=== PATIENT | female | born 1930 | race Caucasian/White ===

== ENCOUNTER → 2018-01-02 | Outpatient (CLI) | payer MEDICARE | END | disposition home or self-care (01) | LOC: ECHO 09:14 | DX: I11.9 Hypertensive heart disease without heart failure (principal); I25.10 Atherosclerotic heart disease of native coronary artery without angina pectoris | CPT/HCPCS: 93306 ==

== ENCOUNTER → 2018-08-18 | Outpatient (CLI) | payer MEDICARE ==
[2016-03-26 11:00] VITALS: BP 155/66
[~2018-08-18] MED LIST: CALC-169 PO; CLOP75TA PO; FISH OIL OMEGA1 EACH PO; FLAX100017 PO; FURO-68 PO; GARL10002 PO; LATA2.5D3 OP; LEVO112T4 PO; MAGN400C PO; MULT-658 PO; POTA20TA82 PO; VERA120T5 PO
--- NOTE | 2018-08-18 16:58 | KCIC ---
RIBS LEFT History: Lateral left rib pain radiating anteriorly, generalized, for one month. No trauma.. Comparison: None are available 3 views are obtained of the left ribs.No evidence of a displaced fracture of the left ribs. The partially visualized spine demonstrates a right convexity curvature. Visualized lungs are clear. IMPRESSION: No evidence of displaced rib fracture. Electronically signed by: Navdeep Quinonez MD (08/18/2018 4:54 PM) [id number]
== END | disposition home or self-care (01) ==
LOC: KCIC 14:35
PROVIDERS: ATTEND Family Medicine
DX: R07.81 Pleurodynia (principal); R07.89 Other chest pain; I11.9 Hypertensive heart disease without heart failure; E78.5 Hyperlipidemia, unspecified; I25.10 Atherosclerotic heart disease of native coronary artery without angina pectoris; Z86.73 Personal history of transient ischemic attack (TIA), and cerebral infarction without residual deficits; Z90.710 Acquired absence of both cervix and uterus; Z88.0 Allergy status to penicillin
CPT/HCPCS: 71100

== ENCOUNTER → 2018-12-23 | Outpatient (CLI) | payer MEDICARE ==
[2016-03-26 11:00] VITALS: BP 155/66
--- NOTE | 2018-12-23 15:07 | RAD ---
Bilateral carotid Doppler ultrasound 12/23/2017 Clinical indication: Intraretinal vascular abnormality, carotid disease. Comparison: None Findings: Multiple grayscale, color, and duplex spectral analysis waveform sonographic images were acquired of the carotid, subclavian, and vertebral arteries. Velocities used to determine stenosis are known to correlate with NASCET angiographic criteria. RIGHT: Mid common carotid artery PSV: 76 cm/sec Distal internal carotid artery PSV: 97 cm/sec Distal internal carotid artery EDV: 19 cm/sec External carotid artery PSV: 97 cm/sec ICA/CCA ratio: 1.27 LEFT: Mid common carotid artery PSV: 112 cm/sec Mid internal carotid artery PSV: 115 cm/sec Mid internal carotid artery EDV: 27 cm/sec External carotid artery PSV: 97 cm/sec ICA/CCA ratio: 1.02 There is intimal thickening throughout the right common carotid artery without high-grade visualized narrowing. There is mild soft plaque at the origin of the right external carotid artery. The visualized portions of the right vertebral artery are patent with normal directional flow. There is minimal intimal thickening of the left common carotid artery without high-grade visualized narrowing. There is focal soft plaque at the left carotid bifurcation resulting in less than 50 percent narrowing. The visualized portions of the left vertebral artery are patent with normal directional flow. There is antegrade flow in the bilateral vertebral arteries. Impression: No visual or spectral analysis evidence of hemodynamically significant internal carotid stenosis. Electronically signed by: Niels Perez MD (12/23/2018 3:03 PM) [facility]
== END | disposition home or self-care (01) ==
LOC: US 14:17
PROVIDERS: ATTEND Family Medicine
DX: H35.09 Other intraretinal microvascular abnormalities (principal); I65.23 Occlusion and stenosis of bilateral carotid arteries
CPT/HCPCS: 93880

== ENCOUNTER → 2019-07-05 | Outpatient (CLI) | payer MEDICARE ==
[2016-03-26 11:00] VITALS: BP 155/66
--- NOTE | 2019-07-05 16:39 | KCIC ---
ANKLE BRACHIAL INDEX STUDY: Clinical indications: Atherosclerosis. Ankle/brachial indices were performed on both sides. Right side: Arm: Not obtained due to right mastectomy. Ankle: The systolic blood pressure is 151 mmHg using posterior tibial artery. Therefore, the ankle brachial index on the right side using the left brachial pressure is 1.04. Left side: Arm: The systolic blood pressure is 147 mmHg Ankle: The systolic blood pressure is 154 mmHg using posterior tibial artery . Therefore, the ankle brachial index on the left side is 1.07. Impression: Normal bilateral HILDA. Electronically signed by: Sohail Diego MD (07/05/2019 4:36 PM) [place] [id number]
== END | disposition home or self-care (01) ==
LOC: KCIC US 13:09
PROVIDERS: ATTEND Family Medicine
DX: I70.8 Atherosclerosis of other arteries (principal); Z90.11 Acquired absence of right breast and nipple
CPT/HCPCS: 93922

== ENCOUNTER → 2019-07-16 | Outpatient (CLI) | payer MEDICARE ==
[2016-03-26 11:00] VITALS: BP 155/66
--- NOTE | 2019-07-16 16:26 | KCIC ---
Indication: Left sciatica. TECHNIQUE: Multiple views of the lumbar spine and left hip joint COMPARISON: None FINDINGS: Mild left hip joint osteoarthritis. No acute fracture or dislocation. There is moderate levoscoliosis of the lumbar spine. SI joints within normal limits. No compression deformity. Multilevel intervertebral disc space narrowing seen with endplate sclerosis and small sliver formation. Multilevel facet arthropathy. 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 Electronically signed by: James Mckeon DO (07/16/2019 4:23 PM) [facility]
== END | disposition home or self-care (01) ==
LOC: KCIC 15:05
PROVIDERS: ATTEND Family Medicine
DX: M51.36 Other intervertebral disc degeneration, lumbar region (principal); M48.061 Spinal stenosis, lumbar region without neurogenic claudication; M41.86 Other forms of scoliosis, lumbar region; M12.88 Other specific arthropathies, not elsewhere classified, other specified site; M16.12 Unilateral primary osteoarthritis, left hip; M70.62 Trochanteric bursitis, left hip
CPT/HCPCS: 72110; 73502

== ENCOUNTER 2020-01-04 18:46 | Inpatient (IN) | payer MEDICARE ==
[~2020-01-04] VITALS: Ht 165.1 cm; Wt 75.9 kg
[~2020-01-04 18:46] MED LIST changes: +POTA20TA4 PO; -POTA20TA82 PO; +VERA120T12 PO; -VERA120T5 PO
[2020-01-04] MEDS ORDERED: IV NORMAL SALINE 1000ML BAG 1,000 ML IV ONE ×3 (19:30→23:00)
[2020-01-04 19:37] LABS: BASO % 0 % (0-3); EOS % 0 % (0-3); HEMATOCRIT 41.3 % (36.0-47.0); HEMOGLOBIN 13.8 g/dL (12.0-15.5); LYMPH # 0.2 x10^3/uL (1.0-4.8); LYMPH % 1 % (24-48); MEAN CORPUSCULAR HEMOGLOBIN 32 pg (25-35); MEAN CORPUSCULAR HGB CONC 33 g/dL (31-37); MEAN CORPUSCULAR VOLUME 97 fL (79-100); MONO # 0.6 x10^3/uL (0.0-1.1); MONO % 3 % (0-9); NEUT # 21.6 x10^3/uL (1.8-7.7); NEUT % 97 % (31-73); PLATELET COUNT 159 x10^3/uL (140-400); RED BLOOD COUNT 4.26 x10^6/uL (3.50-5.40); RED CELL DISTRIBUTION WIDTH 13.4 % (11.5-14.5); WHITE BLOOD COUNT 22.4 x10^3/uL (4.0-11.0)
[2020-01-04 19:38] LABS: BILIRUBIN,URINE NEGATIVE (NEG); CLARITY,URINE CLEAR; COLOR,URINE YELLOW; NITRITE,URINE POSITIVE (NEG); PROTEIN,URINE 100 mg/dL (NEG-TRACE); UROBILINOGEN,URINE 0.2 mg/dL (0.2 mg/dL)
[2020-01-04 19:49] LABS: BACTERIA,URINE MANY /HPF (0-FEW); GRANULAR CASTS,URINE FEW /HPF; HYALINE CASTS, URINE FEW /HPF; RBC,URINE TNTC /HPF (0-2); SQUAMOUS EPITHELIAL CELL,UR OCC /LPF; WBC,URINE >40 /HPF (0-4)
--- NOTE | 2020-01-04 19:58 | RAD ---
Right elbow 3 views, right humerus 2 views, right forearm 2 views. HISTORY: Trauma altered mental status Right forearm 2 views were taken of the right forearm. There is soft tissue swelling of the right arm. There is arthritis at the wrist. There is been resection of the trapezium. There is no acute fracture at the forearm. Right elbow 3 views were taken of the right elbow. There is soft tissue swelling. There is not evidence of an acute fracture. Unfortunately the lateral views are obliquely positioned limiting evaluation. I cannot evaluate the fat pads. There is no definite elbow fracture. Right humerus 2 views were taken of the right humerus. There is not evidence of an acute fracture. There is no dislocation at the shoulder. IMPRESSION: 1. Soft tissue swelling right arm. 2. Arthritis right wrist. 3. No fracture in the right forearm. 4. No fracture of the right humerus. 5. Some limitations at the elbow as the lateral views are obliquely positioned but no definite fracture. Electronically signed by: Omi Blanco MD (01/04/2020 7:55 PM) [id number]
--- NOTE | 2020-01-04 19:59 | RAD ---
AP chest. HISTORY: Short of air AP view was taken of the chest. Lungs are clear. There is no pneumothorax or pleural effusion. There are no infiltrates. Heart is normal in size. IMPRESSION: 1. No acute chest disease. Electronically signed by: Omi Blanco MD (01/04/2020 7:57 PM) [email or web address]
--- NOTE | 2020-01-04 20:12 | RAD ---
CT brain without contrast. HISTORY: Altered mental status, trauma CT scan of brain was done without contrast. There is mucosal thickening in the maxillary, ethmoid and sphenoid sinuses consistent with an acute sinusitis. There is no skull fracture. Patient had previous mastoid surgery on the left. There is no abnormal fluid in the mastoid air cells. There is no intracranial hemorrhage or subdural hematoma. Ventricles are normal in size. There is no mass or shift of the midline. An acute CVA is not identified. IMPRESSION: 1. Sinusitis. 2. No intracranial hemorrhage or acute finding noted intracranially. PQRS Compliance Statement: One or more of the following individualized dose reduction techniques were utilized for this examination: 1. Automated exposure control 2. Adjustment of the mA and/or kV according to patient size 3. Use of iterative reconstruction technique Electronically signed by: Omi Blanco MD (01/04/2020 8:09 PM) [email or web address]
[2020-01-04 20:28] LABS: % BANDS 24 % (0-9); % MONOS 2 % (0-10); % SEGS 74 % (35-66); PLT ESTIMATE ADEQUATE (ADEQUATE); TOXIC GRANULATION SLIGHT; TOXIC VACUOLATION SLIGHT
[2020-01-04] MEDS ORDERED: VANCOMYCIN 1.5 GM in IV NORMAL SALINE 500ML BAG 500 ML IV ONE (20:45)
--- NOTE | 2020-01-04 20:57 | RAD ---
Exam: Right upper extremity venous duplex study INDICATION: Right arm swelling TECHNIQUE: Using a combination of real-time ultrasound imaging and color-flow and pulse Doppler imaging techniques along with graded compression and augmentation, duplex evaluation of the deep venous systems of right upper extremity was performed. Multiple images were obtained. Findings: There is no sonographic evidence for deep venous thrombosis involving the visualized deep venous structures of the right upper extremity. IMPRESSION: No acute DVT in the right upper extremity Electronically signed by: Ayo Fish MD (01/04/2020 8:54 PM) [id number]
[2020-01-04 22:20] LABS: CALCIUM 9.3 mg/dL (8.5-10.1); CREATININE 1.3 mg/dL (0.6-1.0); GFR 38.7; POTASSIUM 3.4 mmol/L (3.5-5.1)
[2020-01-04 22:34] LABS: ALBUMIN 2.7 g/dL (3.4-5.0); ALBUMIN/GLOBULIN RATIO 0.7 (1.0-1.7); MAGNESIUM 2.2 mg/dL (1.8-2.4); TOTAL PROTEIN 6.6 g/dL (6.4-8.2)
[2020-01-04 23:57] LABS: PROTHROMBIN TIME PATIENT 14.8 SEC (11.7-14.0)
[2020-01-05] VITALS (17 sets, daily range): BP systolic 99–160; BP diastolic 45–76
--- NOTE | 2020-01-05 00:48 | PDOC2 ---
CONSULT Date of Consult Date of Consult DATE: 01/05/20 TIME: 00:36 Reason for Consult Reason for Consult: right forearm swelling, low grade fever Identification/Chief Complaint Chief Complaint Right forearm swelling Source Source: Chart review History of Present Illness Reason for Visit: 89 year old with forearm injury, swelling, low grade fever, elevated WBC count Patient is a 89 year old female with history of breast cancer who presents with altered mental status, fever 100.2 and arm pain and swelling. She lives by herself. Reportedly the patient fell 2 days ago at home injuring right arm over her right forearm. Patient reported to family members 01/04 that her right arm began to hurt. This afternoon, the family members became concerned the patient was confused swelling redness right upper extremity extending from wrist to elbow and arm. EMS was contacted. Patient is normally alert and oriented 3 but is alert and oriented to person only with confused speech on ED arrival. Reports diffuse right arm pain, tenderness and swelling. Denies hitting her head, neck pain or jury complaint. No gross injury evidence of head, neck, torso or lower extremity trauma. Right arm feels warm with erythema and swelling done from wrist to elbow, some swelling and erythema in upper arm. There is an abrasion or other area of slight drainage on the posterolateral upper arm. Extensive and diffuse swelling but no other deformity. Arm is diffusely tender with pain on range of motion. Shoulder, elbow and wrist joints do not to be especially swollen or hot. Distal pulses are intact. Sensation and motor function are intact. Patient does have history of lymphedema of right arm due to breast lumpectomy surgery. Patient is less confused today than yesterday per family. Overnight she was on a sepsis protocol, with IV fluids, and repletion of her low potassium. I spoke to the ICU nurse overnight, about her vital signs and overall condition. She did not seem to have any severe decline overnight, otherwise I would have considered emergent surgery in the middle of the night. 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 No Lives: Alone Current Medications Current Medications Current Medications Sodium Chloride 1,000 ml @ 1,000 mls/hr 1X ONCE IV Last administered on 01/04/20at 20:58; Start 01/04/20 at 19:30; Stop 01/04/20 at 20:29; Status DC Vancomycin HCl (Vanco Per Pharmacy) 1 each PRN DAILY PRN MC SEE COMMENTS; Start 01/04/20 at 20:45; Status UNV Vancomycin HCl 1.5 gm/Sodium Chloride 500 ml @ 250 mls/hr 1X ONCE IV Last administered on 01/04/20at 20:58; Start 01/04/20 at 20:45; Stop 01/04/20 at 22:44; Status DC Sodium Chloride 1,000 ml @ 1,000 mls/hr 1X ONCE IV Last administered on 01/03/20at 23:00; Start 01/04/20 at 21:30; Stop 01/04/20 at 22:29; Status DC Levofloxacin/ Dextrose 100 ml @ 100 mls/hr 1X ONCE IV Last administered on 01/05/20at 00:05; Start 01/04/20 at 23:00; Stop 01/04/20 at 23:59; Status DC Sodium Chloride 1,000 ml @ 1,000 mls/hr 1X ONCE IV ; Start 01/04/20 at 23:00; Stop 01/04/20 at 23:59; Status DC Meropenem 1 gm/ Sodium Chloride 100 ml @ 200 mls/hr Q8HRS IV ; Start 01/05/20 at 06:00; Status UNV Metronidazole 100 ml @ 100 mls/hr 1X ONCE IV Last administered on 01/05/20at 00:02; Start 01/04/20 at 23:45; Stop 01/05/20 at 00:44 Active Scripts Active Reported Garlic 1,000 Mg Capsule 1,000 Mg PO DAILY08 Flax Seed Oil (Flaxseed Oil) 1,000 Mg Capsule 1,000 Mg PO TID Fish Oil [place]-3 Softgel ([place]-3/Dha/Epa/Fish Oil) 1 Each Capsule.dr 1 Each PO BIDAC Centrum Silver Tablet (Multivits-Min/Fa/Lycopene/Lut) 1 Each Tablet 1 Each PO DAILY08 Calcium Citrate - Vit D3 Tab (Calcium Citrate/Vitamin D3) 1 Each Tablet 1 Each PO DAILY08 Magnesium (Magnesium Oxide) 400 Mg Capsule 400 Mg PO DAILY08 Latanoprost 2.5 Ml Drops 1 Drop OP HS Clopidogrel (Clopidogrel Bisulfate) 75 Mg Tablet 75 Mg PO DAILY08 Potassium Chloride 20 Meq Tablet.er 20 Meq PO TIDWMEALS Verapamil Hcl 120 Mg Tablet 240 Mg PO TIDWMEALS Levothyroxine Sodium 112 Mcg Tablet 112 Mcg PO DAILYAC Allergies Allergies: Coded Allergies: Penicillins (Verified Allergy, Intermediate, 08/02/15) etodolac (Verified Allergy, Intermediate, 08/02/15) hydrocodone (Verified Allergy, Intermediate, 08/02/15) meperidine (Verified Allergy, Intermediate, 08/02/15) morphine (Verified Allergy, Intermediate, 08/02/15) oxycodone (Verified Allergy, Intermediate, 08/02/15) pentazocine (Verified Allergy, Intermediate, 08/02/15) ROS General: YES: Fatigue, Malaise, Appetite (didn't eat or take her usual meds on 01/04) PSYCHOLOGICAL ROS: YES: Disorientation HEENT: YES: Hearing change (hearing aids, but no recent change) Hematological and Lymphatic: YES: Brusing Respiratory: No: Shortness of breath Cardiovascular: No Chest Pain Musculoskeletal: Yes Muscle Pain, Yes Swelling In: (right forearm and elbow) Neurological: Yes Confusion, Yes Memory Loss Physical Exam General: Alert, Cooperative, No acute distress HEENT: Atraumatic, Other (mouth dry, caused slight difficulty with speech, but lucid and conversive otherwise) Lungs: Normal air movement Heart: Other (regular rhythm, mild tachycardia) Abdomen: Soft Extremities: Other (the right forearm has the maximum amount of swelling along the medial elbow, basically over the ulnar nerve and volar forearm. There is 0 femur distally on the forearm almost to the hand, and proximally almost to the shoulder. The skin in these areas is softer and does not have the fullness or tense areas to palpation that are present at the medial forearm and elbow. On examination I don't believe there is a obvious olecranon bursitis but her different examination was difficult due to pain and guarding. The distal neurovascular function appears unremarkable with good capillary refill, sensa tion and slight limitation of range of motion due to pain but no focal neurologic deficit. There is a small area of serous drainage on the upper arm, which might be an abrasion or perhaps a slight amount of skin breakdown from the swelling. There is diffuse severe tenderness.) Skin: Other (slight serous drainage from upper arm 1 cm superficial lesion) Neuro: Normal speech, Sensation intact Psych/Mental Status: Mood NL MUSCULOSKELETAL: Abnormal exam of right (forearm as above. There is also edema of the forearm consistent with her history of breast cancer and lymphedema.) Vitals VITALS Vital Signs Date Time Temp Pulse Resp B/P (MAP) Pulse Ox O2 Delivery O2 Flow Rate FiO2 01/04/20 19:01 100.2 111 22 157/68 (97) 99 Room Air 100.2 Labs Labs Laboratory Tests Test 01/04/20 19:20 01/04/20 19:30 01/04/20 21:55 White Blood Count 22.4 x10^3/uL (4.0-11.0) Red Blood Count 4.26 x10^6/uL (3.50-5.40) Hemoglobin 13.8 g/dL (12.0-15.5) Hematocrit 41.3 % (36.0-47.0) Mean Corpuscular Volume 97 fL (79-100) Mean Corpuscular Hemoglobin 32 pg (25-35) Mean Corpuscular Hemoglobin Concent 33 g/dL (31-37) Red Cell Distribution Width 13.4 % (11.5-14.5) Platelet Count 159 x10^3/uL (140-400) Neutrophils (%) (Auto) 97 % (31-73) Lymphocytes (%) (Auto) 1 % (24-48) Monocytes (%) (Auto) 3 % (0-9) Eosinophils (%) (Auto) 0 % (0-3) Basophils (%) (Auto) 0 % (0-3) Neutrophils # (Auto) 21.6 x10^3/uL (1.8-7.7) Lymphocytes # (Auto) 0.2 x10^3/uL (1.0-4.8) Monocytes # (Auto) 0.6 x10^3/uL (0.0-1.1) Eosinophils # (Auto) 0.0 x10^3/uL (0.0-0.7) Basophils # (Auto) 0.0 x10^3/uL (0.0-0.2) Segmented Neutrophils % 74 % (35-66) Band Neutrophils % 24 % (0-9) Monocytes % 2 % (0-10) Toxic Granulation Slight Toxic Vacuolation Slight Platelet Estimate Adequate (ADEQUATE) Urine Collection Type U cath Urine Color Yellow Urine Clarity Clear Urine pH 6.0 Urine Specific [place] 1.020 Urine Protein 100 mg/dL (NEG-TRACE) Urine Glucose (UA) Negative mg/dL (NEG) Urine Ketones (Stick) 15 mg/dL (NEG) Urine Blood Large (NEG) Urine Nitrite Positive (NEG) Urine Bilirubin Negative (NEG) Urine Urobilinogen Dipstick 0.2 mg/dL (0.2 mg/dL) Urine Leukocyte Esterase Negative (NEG) Urine RBC Tntc /HPF (0-2) Urine WBC >40 /HPF (0-4) Urine Squamous Epithelial Cells Occ /LPF Urine Bacteria Many /HPF (0-FEW) Urine Hyaline Casts Few /HPF Urine Granular Casts Few /HPF Urine Mucus Slight /LPF Sodium Level 135 mmol/L (136-145) Potassium Level 3.4 mmol/L (3.5-5.1) Chloride Level 100 mmol/L (98-107) Carbon Dioxide Level 24 mmol/L (21-32) Anion Gap 11 (6-14) Blood Urea Nitrogen 40 mg/dL (7-20) Creatinine 1.3 mg/dL (0.6-1.0) Estimated GFR (Cockcroft-Gault) 38.7 BUN/Creatinine Ratio 31 (6-20) Glucose Level 105 mg/dL (70-99) Lactic Acid Level 1.4 mmol/L (0.4-2.0) Calcium Level 9.3 mg/dL (8.5-10.1) Magnesium Level 2.2 mg/dL (1.8-2.4) Total Bilirubin 1.0 mg/dL (0.2-1.0) Aspartate Amino Transf (AST/SGOT) 25 U/L (15-37) Alanine Aminotransferase (ALT/SGPT) 20 U/L (14-59) Alkaline Phosphatase 55 U/L (46-116) Creatine Kinase 395 U/L (26-192) Troponin I Quantitative < 0.017 ng/mL (0.000-0.055) Total Protein 6.6 g/dL (6.4-8.2) Albumin 2.7 g/dL (3.4-5.0) Albumin/Globulin Ratio 0.7 (1.0-1.7) Laboratory Tests Test 01/04/20 19:20 01/04/20 19:30 01/04/20 21:55 White Blood Count 22.4 x10^3/uL (4.0-11.0) Red Blood Count 4.26 x10^6/uL (3.50-5.40) Hemoglobin 13.8 g/dL (12.0-15.5) Hematocrit 41.3 % (36.0-47.0) Mean Corpuscular Volume 97 fL (79-100) Mean Corpuscular Hemoglobin 32 pg (25-35) Mean Corpuscular Hemoglobin Concent 33 g/dL (31-37) Red Cell Distribution Width 13.4 % (11.5-14.5) Platelet Count 159 x10^3/uL (140-400) Neutrophils (%) (Auto) 97 % (31-73) Lymphocytes (%) (Auto) 1 % (24-48) Monocytes (%) (Auto) 3 % (0-9) Eosinophils (%) (Auto) 0 % (0-3) Basophils (%) (Auto) 0 % (0-3) Neutrophils # (Auto) 21.6 x10^3/uL (1.8-7.7) Lymphocytes # (Auto) 0.2 x10^3/uL (1.0-4.8) Monocytes # (Auto) 0.6 x10^3/uL (0.0-1.1) Eosinophils # (Auto) 0.0 x10^3/uL (0.0-0.7) Basophils # (Auto) 0.0 x10^3/uL (0.0-0.2) Segmented Neutrophils % 74 % (35-66) Band Neutrophils % 24 % (0-9) Monocytes % 2 % (0-10) Toxic Granulation Slight Toxic Vacuolation Slight Platelet Estimate Adequate (ADEQUATE) Urine Collection Type U cath Urine Color Yellow Urine Clarity Clear Urine pH 6.0 Urine Specific [place] 1.020 Urine Protein 100 mg/dL (NEG-TRACE) Urine Glucose (UA) Negative mg/dL (NEG) Urine Ketones (Stick) 15 mg/dL (NEG) Urine Blood Large (NEG) Urine Nitrite Positive (NEG) Urine Bilirubin Negative (NEG) Urine Urobilinogen Dipstick 0.2 mg/dL (0.2 mg/dL) Urine Leukocyte Esterase Negative (NEG) Urine RBC Tntc /HPF (0-2) Urine WBC >40 /HPF (0-4) Urine Squamous Epithelial Cells Occ /LPF Urine Bacteria Many /HPF (0-FEW) Urine Hyaline Casts Few /HPF Urine Granular Casts Few /HPF Urine Mucus Slight /LPF Sodium Level 135 mmol/L (136-145) Potassium Level 3.4 mmol/L (3.5-5.1) Chloride Level 100 mmol/L (98-107) Carbon Dioxide Level 24 mmol/L (21-32) Anion Gap 11 (6-14) Blood Urea Nitrogen 40 mg/dL (7-20) Creatinine 1.3 mg/dL (0.6-1.0) Estimated GFR (Cockcroft-Gault) 38.7 BUN/Creatinine Ratio 31 (6-20) Glucose Level 105 mg/dL (70-99) Lactic Acid Level 1.4 mmol/L (0.4-2.0) Calcium Level 9.3 mg/dL (8.5-10.1) Magnesium Level 2.2 mg/dL (1.8-2.4) Total Bilirubin 1.0 mg/dL (0.2-1.0) Aspartate Amino Transf (AST/SGOT) 25 U/L (15-37) Alanine Aminotransferase (ALT/SGPT) 20 U/L (14-59) Alkaline Phosphatase 55 U/L (46-116) Creatine Kinase 395 U/L (26-192) Troponin I Quantitative < 0.017 ng/mL (0.000-0.055) Total Protein 6.6 g/dL (6.4-8.2) Albumin 2.7 g/dL (3.4-5.0) Albumin/Globulin Ratio 0.7 (1.0-1.7) Images Images Reports reviewed, images independently reviewed. Some reticulation consistent with swelling, no soft tissue gas, no fracture. [facility] [address] [place], [place] [id number] IMAGING REPORT Signed PATIENT: BECKIE HUFF ACCOUNT: [id number] : 1930 LOCATION: ER AGE: 89 SEX: F EXAM STATUS: REG ER ORD. PHYSICIAN: LUCA CONTRERAS DO REASON: trauma PROCEDURE: FOREARM RIGHT Right elbow 3 views, right humerus 2 views, right forearm 2 views. HISTORY: Trauma altered mental status Right forearm 2 views were taken of the right forearm. There is soft tissue swelling of the right arm. There is arthritis at the wrist. There is been resection of the trapezium. There is no acute fracture at the forearm. Right elbow 3 views were taken of the right elbow. There is soft tissue swelling. There is not evidence of an acute fracture. Unfortunately the lateral views are obliquely positioned limiting evaluation. I cannot evaluate the fat pads. There is no definite elbow fracture. Right humerus 2 views were taken of the right humerus. There is not evidence of an acute fracture. There is no dislocation at the shoulder. IMPRESSION: 1. Soft tissue swelling right arm. 2. Arthritis right wrist. 3. No fracture in the right forearm. 4. No fracture of the right humerus. 5. Some limitations at the elbow as the lateral views are obliquely positioned but no definite fracture. Electronically signed by: Omi Blanco MD (01/04/2020 7:55 PM) [id number] DICTATED and SIGNED BY: OMI BLANCO MD DATE: 01/04/201954 Assessment/Plan Assessment/Plan I will plan for (possible) I&D R forearm in a few hours. Patient currently hemodynamically stable but hyponatremic, hypokalemic, and elevated BUN/Cr ratio consistent with severe dehydration. Would recommend IV hydration and replace electrolytes to make potential surgery safer. Her lactic acid is normal, so this might be cellulitis, not fasciitis. Would reconsider for emergent surgery sooner if BP becomes labile or other deterioration. Discussed with nursing coding clerks supervisor. Notify me for signs of hypotension overnight. I examined the patient at 7:30 AM, and she has tense fullness on the medial forearm, consistent with an abscess. She did not deteriorate overnight, and her blood pressure remained stable. She received potassium and IV fluids. She is lucid now, but diagnosis of sepsis and forearm abscess is appropriate. I doubt necrotizing fasciitis based on her clinical course, but surgical exploration and I&D of the arm is indicated and will help determine the appropriate diagnosis. If necrotizing fasciitis is present she would require fasciotomy, a more extensive procedure than incision and drainage. I spoke to the patient and her daughter about the risks benefits and alternatives of proceeding with surgery. They agree for incision and drainage and possible fasciotomy of the right arm. BRIDGER DE LA CRUZ MD Jan 05, 2020 00:48
[2020-01-05 01:03] LABS: ALBUMIN 2.5 g/dL (3.4-5.0); ALBUMIN/GLOBULIN RATIO 0.7 (1.0-1.7); CALCIUM 8.6 mg/dL (8.5-10.1); CREATININE 1.2 mg/dL (0.6-1.0); GFR 42.4; TOTAL PROTEIN 6.1 g/dL (6.4-8.2)
[2020-01-05 01:08] LABS: POTASSIUM 2.8 mmol/L (3.5-5.1)
[2020-01-05] MEDS ORDERED: ONDANSETRON PF 4 MG/2 ML VIAL. IV PRN ×2 (01:15→06:45)
[2020-01-05] MEDS ORDERED: MORPHINE SULFATE 2 MG/ML VIAL. IV PRN (01:15)
[2020-01-05] MEDS ORDERED: POTASSIUM CHLORIDE 20 MEQ TABLET.ER. PO ONE ×2 (01:30→15:15)
--- NOTE | 2020-01-05 01:39 | PHYS DOC ---
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 She lives by herself. Reportedly the patient fell 2 days ago at home injuring right arm over her medial bicep. Patient reported to family members S today that her right arm began to hurt. This afternoon, the family members became concerned the patient was confused swelling redness right upper extremity extending from wrist to proximal bicep. EMS was contacted. Patient is normally alert and oriented 3 but is alert and oriented to person only with confused speech on ED arrival. Reports diffuse right arm pain, tenderness and swelling. Denies hitting her head, neck pain or jury complaint. No gross injury evidence of head, neck, torso or lower extremity trauma. Right arm feels warm with erythema and swelling done from wrist to proximal bicep.. There is no soft tissue given breakdown appreciated. There is a contusion over the right bicep consistent with reported injury. No deformity appreciated. Arm is diffusely tender with pain on range of motion. Shoulder, elbow and wrist joints do not to be especially swollen or hot. Distal pulses are intact. Sensation and motor function are intact. Patient does have history of lymphedema of right arm. Patient is confused, additional information is obtained from family members who confirm [ ] Review of Systems Review of Systems ROS as per HPI All other systems were reviewed and found to be within normal limits, except as documented in this note. Current Medications Current Medications Current Medications Medications (Trade) Dose Ordered Sig/Jason Start Time Stop Time Status Last Admin Dose Admin Sodium Chloride 1,000 ml @ 1,000 mls/hr 1X ONCE 01/04/20 19:30 01/04/20 20:29 DC 01/04/20 20:58 1,000 MLS/HR Allergies Allergies Allergies Coded Allergies Type Severity Reaction Last Updated Verified Penicillins Allergy Intermediate 08/02/15 Yes etodolac Allergy Intermediate 08/02/15 Yes hydrocodone Allergy Intermediate 08/02/15 Yes meperidine Allergy Intermediate 08/02/15 Yes morphine Allergy Intermediate 08/02/15 Yes oxycodone Allergy Intermediate 08/02/15 Yes pentazocine Allergy Intermediate 08/02/15 Yes Physical Exam Physical Exam Constitutional:. Anxious, pleasantly confused. [] HENT: Normocephalic, atraumatic, bilateral external ears normal, oropharynx moist, nose normal. [] Eyes: PERRL, EOMI, conjunctiva normal. [] Neck: Normal range of motion, no midline tenderness. [] Cardiovascular: Tachycardic, regular rhtyhtm[] Lungs & Thorax: Bilateral breath sounds clear to auscultation [] Abdomen: Bowel sounds normal, soft. [] Skin: Warm, dry, no erythema, no rash. [] Back: No tenderness. [] Extremities: RUE: Right arm feels warm with erythema and swelling done from wr ist to proximal bicep.. There is no soft tissue given breakdown or soft tissue crepitus appreciated. There is a contusion over the right bicep consistent with reported injury. No deformity appreciated. Arm is diffusely tender with pain on range of motion. Shoulder, elbow and wrist joints do not to be especially swollen or hot. Distal pulses are intact. Sensation and motor function are intact. [] Neurologic: Alert and oriented X 1, normal motor function, normal sensory funct ion, no focal deficits noted. [] Psychologic: Affect normal, judgement normal, mood normal. [] Current Patient Data Vital Signs Vital Signs Date Time Temp Pulse Resp B/P (MAP) Pulse Ox O2 Delivery O2 Flow Rate FiO2 01/04/20 19:01 100.2 111 22 157/68 (97) 99 Room Air 100.2 Lab Values Laboratory Tests Test 01/04/20 19:20 01/04/20 19:30 White Blood Count 22.4 x10^3/uL (4.0-11.0) H Red Blood Count 4.26 x10^6/uL (3.50-5.40) Hemoglobin 13.8 g/dL (12.0-15.5) Hematocrit 41.3 % (36.0-47.0) Mean Corpuscular Volume 97 fL (79-100) Mean Corpuscular Hemoglobin 32 pg (25-35) Mean Corpuscular Hemoglobin Concent 33 g/dL (31-37) Red Cell Distribution Width 13.4 % (11.5-14.5) Platelet Count 159 x10^3/uL (140-400) Neutrophils (%) (Auto) 97 % (31-73) H Lymphocytes (%) (Auto) 1 % (24-48) L Monocytes (%) (Auto) 3 % (0-9) Eosinophils (%) (Auto) 0 % (0-3) Basophils (%) (Auto) 0 % (0-3) Neutrophils # (Auto) 21.6 x10^3/uL (1.8-7.7) H Lymphocytes # (Auto) 0.2 x10^3/uL (1.0-4.8) L Monocytes # (Auto) 0.6 x10^3/uL (0.0-1.1) Eosinophils # (Auto) 0.0 x10^3/uL (0.0-0.7) Basophils # (Auto) 0.0 x10^3/uL (0.0-0.2) Segmented Neutrophils % 74 % (35-66) H Band Neutrophils % 24 % (0-9) H Monocytes % 2 % (0-10) Toxic Granulation Slight Toxic Vacuolation Slight Platelet Estimate Adequate (ADEQUATE) Urine Collection Type U cath Urine Color Yellow Urine Clarity Clear Urine pH 6.0 Urine Specific [place] 1.020 Urine Protein 100 mg/dL (NEG-TRACE) Urine Glucose (UA) Negative mg/dL (NEG) Urine Ketones (Stick) 15 mg/dL (NEG) Urine Blood Large (NEG) Urine Nitrite Positive (NEG) Urine Bilirubin Negative (NEG) Urine Urobilinogen Dipstick 0.2 mg/dL (0.2 mg/dL) Urine Leukocyte Esterase Negative (NEG) Urine RBC Tntc /HPF (0-2) Urine WBC >40 /HPF (0-4) Urine Squamous Epithelial Cells Occ /LPF Urine Bacteria Many /HPF (0-FEW) Urine Hyaline Casts Few /HPF Urine Granular Casts Few /HPF Urine Mucus Slight /LPF Laboratory Tests 01/04/20 19:20 EKG EKG EKG: reviewed[] Radiology/Procedures Radiology/Procedures R humerus, elbow, forearm: no fx per radiology report RUE venous doppler US: No dvt CT head: No acute injury[] Course & Med Decision Making Course & Med Decision Making Pertinent Labs and Imaging studies reviewed. (See chart for details) [Patient encephalopathic likely secondary to right arm tissue infection accompanied with urinary tract infection. Aggressive IV fluids and antibiotics initiated. Patient hemodynamically stable vital signs. No evidence of fracture or DVT on ultrasound. Delay is obtaining initial labs reveal an elevation in CK, possibly due to initial injury/fall versus fasciitis. No progression of cellulitis or fasciitis appreciated on repeat evaluation while in the ED. Cellulites margins clearly outlined with surgical marker. Case discussed with Dr. Lawrence on-call for general surgery who is in the operating room. Recommendations are to discuss with orthopedic surgery since extremity is involved. Case reviewed in detail with Dr. Pop on-call for orthopedic surgery. Labs and imaging studies reviewed in detail. Dr. Pop requests that patient be admitted to the ICU for close hemodynamic monitoring, IV volume volume and electrolyte replacement with plans for sx evaluation this AM. Case d/w Dr. Duran who agrees to admit for the hospitalist service. Courtesy bridge orders written. ] Kateon Disclaimer Elizabeth Disclaimer This electronic medical record was generated, in whole or in part, using a voice recognition dictation system. Departure Departure Impression: Primary Impression: Right arm cellulitis Additional Impressions: Urinary tract infection Encephalopathy acute Hypokalemia Disposition: ADMITTED INPATIENT Condition: CRITICAL Problem Qualifiers LUCA CONTRERAS DO Jan 05, 2020 01:39
[2020-01-05] MEDS ORDERED: POTASSIUM CHLORIDE 20 MEQ in IV DEXTROSE 5 %-0.45 % NACL 1,000 ML IV SCH ×2 (01:45→09:00)
[2020-01-05] MEDS: POTASSIUM CHLORIDE 20MEQ 100 ML IV ONE (01:45)
[2020-01-05] MEDS ORDERED: POTASSIUM CL 20MEQ D5-0.45NACL 1,000 ML IV ONE (01:51)
[2020-01-05] MEDS ORDERED: cefTRIAXone IV Push 1 GM VIAL. IVP ONE (02:30)
[2020-01-05] MEDS: VANCOMYCIN PER PHARMACY MC PRN ×2 (02:50→02:51)
--- NOTE | 2020-01-05 02:53 | NUR ---
Pharmacy Vancomycin Dosing Note S:Consulted to monitor and dose vancomycin started 01/04/20. O:BECKIE HUFF is a 89 year old F with Cellulitis Sepsis . Height: 5 feet, 5 inches Weight: 69.4 kg [place] Body Weight: 57.00 Adjusted Body Weight: 61.96 Dosing Weight: Actual Other Antibiotics: LEVOFLOXACIN 500MG IV X1 IN ER (01/04) METRONIDAZOLE 500MG IV X1 IN ER (01/04) CEFTRIAXONE 1GM IV Q24H (01/05-) LABS: Last BUN: 36 Last Creatinine: 1.2 Creatinine Clearance: 31.9 mL/min Last WBC: 22.4 Last Procalcitonin: Tmax (past 24 hours): Microbiology: I/O: Drug Levels: Last level: on at Last dose given at Vancomycin Dosing: Loading Dose: 1500 mg x1 01/04/202057 Dosing Weight: Actual Target Trough: 15-20 A: Based on: Actual Wt and CrCl P: 1. 01/05/202099 Vancomycin 1000 mg IV q24h 2. Follow up Trough level on 01/06/20 at 2030 3. Pharmacy will continue to monitor, follow and adjust therapy as needed. JOSETTE WARNER RPH, 01/05/20 0254 Signed: 01/05/20 at 0255 by JOSETTE WARNER RPH PHA
[2020-01-05] MEDS ORDERED: POTASSIUM CHLORIDE 20MEQ 100 ML IV ONE (04:00)
[2020-01-05] MEDS ORDERED: MEROPENEM 1 GM in IV NORMAL SALINE 100ML 100 ML IV SCH (06:00)
--- NOTE | 2020-01-05 06:05 | EKG ---
[facility] [address] [place] [address] Test Date: 2020-01-04 Test Time: 19:41:56 Pat Name: BECKIE HUFF Department: Room: Gender: F Clerk Travel Reservations: : 1930 Requested By: LUCA CONTRERAS Order Number: [id number] Reading MD: Measurements Intervals Bryce Rate: 110 P: -16 WA: 152 QRS: -20 QRSD: 78 T: 65 QT: 310 QTc: 425 Interpretive Statements SINUS TACHYCARDIA LEFTWARD AXIS QRS(T) CONTOUR ABNORMALITY CONSIDER ANTEROSEPTAL MYOCARDIAL DAMAGE POSSIBLY ABNORMAL ECG RI6.01 No previous ECG available for comparison
[2020-01-05] MEDS ORDERED: LIDOCAINE 2% PF 5 ML VIAL. ONE (06:40)
[2020-01-05] MEDS ORDERED: PROPOFOL 20 ML IV ONE (06:40)
[2020-01-05] MEDS ORDERED: LIDOCAINE 1% PF 2 ML VIAL. ID PRN (06:45)
[2020-01-05] MEDS ORDERED: PROCHLORPERAZINE 10 MG/2 ML VIAL. IV PRN (06:45)
[2020-01-05] MEDS ORDERED: IV RINGERS,LACTATED 1000ML 1,000 ML IV SCH (06:45)
--- NOTE | 2020-01-05 06:52 | PDOC ---
Infectious Disease Note Vital Sign Vital Signs Vital Signs Date Time Temp Pulse Resp B/P (MAP) Pulse Ox O2 Delivery O2 Flow Rate FiO2 01/05/20 05:00 104 18 156/67 (96) 100 Room Air 01/05/20 04:00 99.2 99.2 Labs Lab Laboratory Tests Test 01/04/20 19:20 01/04/20 19:30 01/04/20 21:55 01/05/20 00:25 White Blood Count 22.4 x10^3/uL (4.0-11.0) Red Blood Count 4.26 x10^6/uL (3.50-5.40) Hemoglobin 13.8 g/dL (12.0-15.5) Hematocrit 41.3 % (36.0-47.0) Mean Corpuscular Volume 97 fL (79-100) Mean Corpuscular Hemoglobin 32 pg (25-35) Mean Corpuscular Hemoglobin Concent 33 g/dL (31-37) Red Cell Distribution Width 13.4 % (11.5-14.5) Platelet Count 159 x10^3/uL (140-400) Neutrophils (%) (Auto) 97 % (31-73) Lymphocytes (%) (Auto) 1 % (24-48) Monocytes (%) (Auto) 3 % (0-9) Eosinophils (%) (Auto) 0 % (0-3) Basophils (%) (Auto) 0 % (0-3) Neutrophils # (Auto) 21.6 x10^3/uL (1.8-7.7) Lymphocytes # (Auto) 0.2 x10^3/uL (1.0-4.8) Monocytes # (Auto) 0.6 x10^3/uL (0.0-1.1) Eosinophils # (Auto) 0.0 x10^3/uL (0.0-0.7) Basophils # (Auto) 0.0 x10^3/uL (0.0-0.2) Segmented Neutrophils % 74 % (35-66) Band Neutrophils % 24 % (0-9) Monocytes % 2 % (0-10) Toxic Granulation Slight Toxic Vacuolation Slight Platelet Estimate Adequate (ADEQUATE) Urine Collection Type U cath Urine Color Yellow Urine Clarity Clear Urine pH 6.0 Urine Specific [place] 1.020 Urine Protein 100 mg/dL (NEG-TRACE) Urine Glucose (UA) Negative mg/dL (NEG) Urine Ketones (Stick) 15 mg/dL (NEG) Urine Blood Large (NEG) Urine Nitrite Positive (NEG) Urine Bilirubin Negative (NEG) Urine Urobilinogen Dipstick 0.2 mg/dL (0.2 mg/dL) Urine Leukocyte Esterase Negative (NEG) Urine RBC Tntc /HPF (0-2) Urine WBC >40 /HPF (0-4) Urine Squamous Epithelial Cells Occ /LPF Urine Bacteria Many /HPF (0-FEW) Urine Hyaline Casts Few /HPF Urine Granular Casts Few /HPF Urine Mucus Slight /LPF Prothrombin Time 14.8 SEC (11.7-14.0) Prothromb Time International Ratio 1.2 (0.8-1.1) Activated Partial Thromboplast Time 31 SEC (24-38) Sodium Level 135 mmol/L (136-145) 132 mmol/L (136-145) Potassium Level 3.4 mmol/L (3.5-5.1) 2.8 mmol/L (3.5-5.1) Chloride Level 100 mmol/L (98-107) 98 mmol/L (98-107) Carbon Dioxide Level 24 mmol/L (21-32) 19 mmol/L (21-32) Anion Gap 11 (6-14) 15 (6-14) Blood Urea Nitrogen 40 mg/dL (7-20) 36 mg/dL (7-20) Creatinine 1.3 mg/dL (0.6-1.0) 1.2 mg/dL (0.6-1.0) Estimated GFR (Cockcroft-Gault) 38.7 42.4 BUN/Creatinine Ratio 31 (6-20) 30 (6-20) Glucose Level 105 mg/dL (70-99) 222 mg/dL (70-99) Lactic Acid Level 1.4 mmol/L (0.4-2.0) 1.9 mmol/L (0.4-2.0) Calcium Level 9.3 mg/dL (8.5-10.1) 8.6 mg/dL (8.5-10.1) Magnesium Level 2.2 mg/dL (1.8-2.4) Total Bilirubin 1.0 mg/dL (0.2-1.0) 1.0 mg/dL (0.2-1.0) Aspartate Amino Transf (AST/SGOT) 25 U/L (15-37) 24 U/L (15-37) Alanine Aminotransferase (ALT/SGPT) 20 U/L (14-59) 16 U/L (14-59) Alkaline Phosphatase 55 U/L (46-116) 48 U/L (46-116) Creatine Kinase 374 U/L (26-192) 378 U/L (26-192) Troponin I Quantitative < 0.017 ng/mL (0.000-0.055) C-Reactive Protein, Quantitative 283.6 mg/L (0-3.3) Total Protein 6.6 g/dL (6.4-8.2) 6.1 g/dL (6.4-8.2) Albumin 2.7 g/dL (3.4-5.0) 2.5 g/dL (3.4-5.0) Albumin/Globulin Ratio 0.7 (1.0-1.7) 0.7 (1.0-1.7) Micro IMPRESSION: 1. Sinusitis. 2. No intracranial hemorrhage or acute finding noted intracranially. IMPRESSION: No acute DVT in the right upper extremity IMPRESSION: 1. Soft tissue swelling right arm. 2. Arthritis right wrist. 3. No fracture in the right forearm. 4. No fracture of the right humerus. 5. Some limitations at the elbow as the lateral views are obliquely positioned but no definite fracture. Objective Assessment Possible Sepsis - POA 01/04 - Bandemia RUE Cellulitis PCN allergy - uncertain if ever had Amox Sinusitis ? UTI - POA MELA Plan Plan of Care Change to Meropenem/Dapto and Zyvox D/c vanc trough F/u lab and blood and urine cults Await possible I and D D/w daughter and nursing Thank you 35 mins CC time # [id number] TONI CRUMP MD Jan 05, 2020 06:52
--- NOTE | 2020-01-05 08:14 | CONS ---
DATE OF CONSULTATION: 01/05/2020 PATIENT'S ROOM: ICU 16. REQUESTING PHYSICIAN: Dr. Hanna. REASON FOR CONSULTATION: Right arm cellulitis. HISTORY OF PRESENT ILLNESS: The patient is an 89-year-old female who lives alone, whose daughter is currently with her and is providing the history. Apparently, she had gotten up in the middle of the night on Friday, had gone to the bathroom and then had fallen on the way back, scraping the inside of her right arm. Apparently, she has not attended [employer] on Friday and a friend went to check on her. The daughter reports that the arm had a mild scrape on the inside, but as she moved around, there did not appear to be any fracture or pain and appeared to be doing fairly well. However, the next day, her daughter called and her mom did not answer the phone, she went to have a friend check on her and found her slumped on a chair. The daughter was concerned that she may have had a stroke and she was brought to [facility] Emergency Room on the . She was found to have a white count of 22.4 with 24% bands. Creatinine was 1.3. Creatine kinase was 374. Glucose was 105. Urinalysis was collected, had occasional squamous cells, many bacteria. She underwent x-rays of her right upper extremity, shows some soft tissue swelling of the right arm, arthritis of the right wrist, no fracture. In the right forearm or right humerus, no acute fracture with some limitations of the elbow was seen. She underwent an ultrasound that was negative for DVT. CT scan of the sinus was performed, showed she had some sinusitis. Additionally, she had a temperature of 100.2, blood pressure has been elevated at 200/70. She has been evaluated by Dr. Pop of Orthopedics and may go through a procedure. She has received doses of levofloxacin, Flagyl, vancomycin and Rocephin. The patient was sleeping on my arrival, awakened her. She is pleasant. She is smiling. She denies significant pain. She denies any fever, chills or sweats. She has no headaches. She sounds a little congested, but she denies congestion. She has no cough, no chest pain. No nausea, vomiting, or diarrhea. No complications passing her urine and has minimal pain in her arm. PAST MEDICAL HISTORY: Positive for hypertension, history of breast cancer, history of CVA, cataracts, Meniere, lymphedema of the right upper extremity. The daughter thinks she has had UTIs in the past. PAST SURGICAL HISTORY: Positive for cholecystectomy, cataract surgery, appendectomy, hysterectomy, knee replacements and back surgery. REVIEW OF SYSTEMS: Otherwise negative except for mentioned above. ALLERGIES: LISTED PENICILLIN. SHE IS UNCERTAIN IF SHE HAS EVER HAD AMOXICILLIN. PENICILLIN CAUSED A RASH. HYDROCODONE, MEPERIDINE, MORPHINE, OXYCODONE, PENTAZOCINE, AND ETODOLAC ARE ALSO LISTED. SOCIAL HISTORY: She lives alone. She is a nonsmoker. She has no pets. FAMILY HISTORY: Noncontributory. CURRENT MEDICATIONS: Include vancomycin, Rocephin. She did receive levofloxacin and Flagyl x 1, potassium, Compazine. Other meds are available, have been reviewed in the chart. PHYSICAL EXAMINATION: VITAL SIGNS: T-max is 102 axillary on arrival, most recently 99.2, pulse 104, respirations 18, blood pressure 156/67, satting 100% on room air. CONSTITUTIONAL: She is lying in bed. She is cooperative. She is smiling. She is in no acute distress. She appears comfortable. She has normal conjunctivae. Oral cavity, pharynx is dry, but clear. NECK: Without JVD or swelling. HEART: S1, S2. No gross murmur. ABDOMEN: Soft. LUNGS: Without Clear to auscultation. ABDOMEN: Soft, nontender, no guarding, no rebound. EXTREMITIES: Without clubbing, cyanosis. Right upper extremity has erythema from the bilateral wrist up to just below her shoulder on the lateral aspect, it is a little less on the medial aspect, but the erythema on the medial aspect a little bit more intense on the upper arm and then on the lateral aspect of her forearm. It is warm. There is swelling. There is no crepitus. There is no obvious purulence or drainage. It is little bit tender to move. NEUROLOGIC: She is nonfocal, answers questions, follows simple commands. PSYCHIATRIC: Affect was pleasant. LABORATORY DATA: White count was 22.4, hemoglobin 13.8, platelets 159, 74 neutrophils 24 bands. Creatinine this morning 1.2, glucose of 222, normal liver function study tests. Creatine kinase increased to 378 from 374. C-reactive protein of 283.6. Urinalysis questionable for urinary tract infection. Cultures are pending. Radiology reviewed in history of present illness. IMPRESSION: 1. Possible sepsis present on admission on the with fever, bandemia cellulitis and reported mental status changes as well. 2. Bandemia. 3. Right upper extremity cellulitis. 4. PENICILLIN ALLERGY. Uncertain if she ever had amoxicillin. 5. Sinusitis on CT. 6. Questionable urinary tract infection present on admission. 7. Acute kidney injury. RECOMMENDATIONS: We will change to meropenem, daptomycin, and Zyvox. Discontinue vancomycin trough as we have discontinued the vancomycin and Rocephin. Follow up labs and blood cultures as well as urine cultures, await possible I and D. This was discussed with her daughter. Discussed with nursing. Thank you for the patient's care. Should you have further concerns or questions, please do not hesitate to contact me. There has been 35 minutes of critical care time. TONI CRUMP MD DR: DEUCE/pamela JOB#: [id number] / [id number]
[2020-01-05] MEDS: DAPTOmycin (GENERIC) IVPB 420 MG in IV NORMAL SALINE 50ML 50 ML IV SCH (08:15)
[2020-01-05] MEDS ORDERED: fentaNYL PF VIAL 100 MCG/2 ML VIAL ONE (08:32)
[2020-01-05] MEDS ORDERED: DEXAMETHASONE SOD PHOS 4 MG/ML VIAL ONE (08:46)
[2020-01-05] MEDS ORDERED: ONDANSETRON PF 4 MG/2 ML VIAL. ONE (08:46)
[2020-01-05] MEDS ORDERED: SEVOFLURANE 31 TO 60 MINUTES. IH ONE (08:46)
[2020-01-05 10:03] LABS: BASO % 0 % (0-3); EOS # 0.1 x10^3/uL (0.0-0.7); EOS % 1 % (0-3); HEMATOCRIT 32.9 % (36.0-47.0); LYMPH # 0.4 x10^3/uL (1.0-4.8); LYMPH % 2 % (24-48); MEAN CORPUSCULAR HEMOGLOBIN 33 pg (25-35); MEAN CORPUSCULAR HGB CONC 34 g/dL (31-37); MEAN CORPUSCULAR VOLUME 97 fL (79-100); MONO # 0.7 x10^3/uL (0.0-1.1); MONO % 4 % (0-9); NEUT # 18.5 x10^3/uL (1.8-7.7); NEUT % 94 % (31-73); PLATELET COUNT 123 x10^3/uL (140-400); RED BLOOD COUNT 3.38 x10^6/uL (3.50-5.40); RED CELL DISTRIBUTION WIDTH 13.4 % (11.5-14.5); WHITE BLOOD COUNT 19.7 x10^3/uL (4.0-11.0)
--- NOTE | 2020-01-05 10:06 | PDOC4 ---
Operative Note Operative Note Date of Procedure: January 05, 2020 Pre-Op Diagnosis: 1. Acute lymphangitis of right upper limb L03.123 Post-Op Diagnosis: 1. Acute lymphangitis of right upper limb L03.123 2. Abscess of bursa, right elbow M71.021 Procedure: 1. Incision and drainage left forearm deep abscess CPT 17200 Surgeon: Bridger Pop MD Anesthesia: General EBL: 50 mL Specimens Obtained: swabs for aerobic and anaerobic. Purulent fluid and blood in specimen cup for aerobic and anaerobic. Complications: none Drains: Iodoform packing Findings: Forearm edema and abscess, confluent with posterior olecranon bursa abscess. There was no evidence of necrotizing fasciitis. Indications for Procedure: This 89-year-old woman injured her arm a few days ago and has increasing pain, swelling, erythema and fever. There was a concern for necrotizing fasciitis although I believe this is unlikely based on her clinical course. I believe she has an arm abscess and sepsis. I spoke to the patient and her daughter about my recommendation for incision and drainage, and possibility of a fasciotomy if necrotizing fasciitis is present. We discussed the potential risks of scarring, bleeding, and ongoing infection, need for further surgery, neurovascular injury, or other potential surgical or anesthetic competitions. All of their questions about surgery were answered and they desired to proceed. Procedure in Detail: The patient was identified in the intensive care unit. The correct right upper extremity was marked by me. The patient was taken to the operating room where general anesthetic was used. The patient was positioned supine on the operating table. A tourniquet was applied to the upper portion of the limb. The patient remains on scheduled antibiotics so no addtional antibiotics were given. A timeout procedure was performed. The limb was prepared in sterile fashion with ChloraPrep circumferentially from the fingertips to the tourniquet. Sterile drapes were applied. An Esmarch bandage was used to exsanguinate the hand and distal forearm, and the upper arm, with minimal compression over the area of suspected abscess. A centering the incision over the area of fullness on the medial upper forearm, essentially making an incision along the course for a ulnar nerve transposition, starting slightly above the medial epicondyle, curving around the course of the ulnar nerve at the elbow, and then further down the upper forearm again along the course of the ulnar nerve. Purulent drainage was noted. The fascia is intact without necrotizing fasciitis. The abscess extends into the posterior olecranon bursa. This did not appear to be the case at my examination, but it was a difficult examination because she was in so much pain, and there is a definite purulent fluid filled olecranon bursa. There is quite a bit of forearm edema consistent with her history of lymphedema. I did digital dissection up the arm above the elbow, for at least the length of my fingers beyond the incision, and likewise anterior and posterior to the incision, as well as distally under the forearm, doing digital dissection in all directions from the area of the incision. I believe I broke up all of the pus filled loculations. Betadine lavage was used. 3 L of saline were irrigated using the [employer] interpulse pumper helper. Outer gloves were changed. The tourniquet was released. Bovie electrocautery was used for hemostasis. The incision was loosely reapproximated with 2-0 nylon horizontal mattress sutures and [id number] pattern retention sutures. The central portion of the incision was left open for additional drainage, and the space cavity was now loosely filled with about 7 feet of 1 inch iodoform packing. Sterile dressings were applied. Needle and sponge counts were correct. There were no apparent complications. Continue current IV antibiotics until cultures resulted, then antibiotics intravenously as directed by sensitivities. Remove 12 inches of iodoform packing daily, and DO NOT REPACK. Arm sling for comfort. BRIDGER POP MD Jan 05, 2020 10:06
[2020-01-05] MEDS: POTASSIUM CL 20MEQ D5-0.45NACL 1,000 ML IV SCH (10:15)
[2020-01-05] MEDS: MEROPENEM 500 MG in IV NORMAL SALINE 50ML 50 ML IV SCH ×4 (10:15→23:50)
[2020-01-05 10:19] LABS: CALCIUM 8.1 mg/dL (8.5-10.1); CREATININE 0.9 mg/dL (0.6-1.0); GFR 59.1; POTASSIUM 3.1 mmol/L (3.5-5.1)
--- NOTE | 2020-01-05 13:45 | NUR ---
Allergies and reactions Reviewed INR 1.2 BUN 26 Cr 0.9 Platelets 123 Blood culture done No blood culture results Order Verified Yes Consent signed Yes Previous PICC placement No Past Medical/Surgical history and current diagnosis reviewed Yes Patient Medical /Surgical History Related to PICC line placement Arrhythmias Infectious Disease consult Special considerations for PICC line placement Infections-Right arm PICC placement indication Caustic medication class drug usage, [facility] antibiotic usage, Alexus Lucas RN, PICC Nurse Addendum: 01/05/20 at 1356 by ALEXUS LUCAS RN Amended: Links added.
--- NOTE | 2020-01-05 14:30 | NUR ---
Procedure: Following complete explanation of the PICC procedure including the indications, risks, and potential complications, informed consent was obtained. The possibility for infection was discussed along with signs, symptoms, and prevention. All the questions were answered. Written and verbal patient education was provided. Hand hygiene performed. Standardized central line checklist was utilized. The patient was placed in the supine position, the arm was prepped with chlorhexidine and patient draped with maximum sterile barrier. 3 mL 1% lidocaine was infiltrated into the skin to provide local anesthesia. A thorough assessment of Left upper extremity completed. Using real-time ultrasound guidance and standardized micro puncture set, the Brachial vein was punctured and a peel away sheath was placed using the modified Seldinger technique. The catheter was secured using a securement device and an antimicrobial patch was applied directly on the insertion site followed by a transparent dressing. All ports withdraw blood and flush without resistance. Patient tolerated the procedure without apparent complication(s). Double Lumen Power Midline placement successful and uncomplicated. Tip located in the Left Axilla. Catheter trimmed to 12CM and inserted to the hub. Complications: None Addendum: 01/05/20 at 1450 by BACILIO VARNER RN Amended: Links added.
[2020-01-05] MEDS ORDERED: dilTIAZem INJ 125 MG in IV NORMAL SALINE 100ML 100 ML IV ONE (15:15)
[2020-01-05] MEDS ORDERED: dilTIAZem IV PUSH 25 MG/5 ML VIAL IVP ONE (15:15)
--- NOTE | 2020-01-05 15:15 | PDOC2 ---
VILMA ROSE SENIOR CORPORATE RECRUITER 01/05/20 1515: CARDIAC CONSULT DATE OF CONSULT Date of Consult DATE: 01/05/20 TIME: 14:53 REASON FOR CONSULT Reason for Consult: AFIB REFERRING PHYSICIAN Referring Physician: Lalo SOURCE Source: Chart review, Patient HISTORY OF PRESENT ILLNESS HISTORY OF PRESENT ILLNESS This is a an 89 yo female admitted for complains of fever and fall. She fell few days ago sustaining contusion to her right arm which then starts turning red. Pt does not have hx of AFIB but apparently after her arm surgery she developed AFIB RVR. No syncope involved with her fall. No chest pain and no SOA. Presently her surgical pain is controlled. Her HR is in the 130 to 150s but BP is stable. PAST MEDICAL HISTORY Cardiovascular: HTN, Hyperlipidemia CENTRAL NERVOUS SYSTEM: CVA, Vertigo (meniere) GI: GERD Heme/Onc: Cancer (breast) Musculoskeletal: Other (RA lymphedema) ENT: Other ([place]; glaucoma) Endocrine: Hypothyroidism Dermatology: Other (RA cellulitis) PAST SURGICAL HISTORY Past Surgical History: Appendectomy, Cholecystectomy, Cataract Removal, Total knee replacement (right), Hysterectomy, Other (back surgery) FAMILY HISTORY Family History noncontributory SOCIAL HISTORY Smoke: No ALCOHOL: none Drugs: None Lives: with Family CURRENT MEDICATIONS CURRENT MEDICATIONS Current Medications Medications (Trade) Dose Ordered Sig/Jason Route PRN Reason Start Time Stop Time Status Last Admin Dose Admin Sodium Chloride 1,000 ml @ 1,000 mls/hr 1X ONCE IV 01/04/20 19:30 01/04/20 20:29 DC 01/04/20 20:58 Vancomycin HCl (Vanco Per Pharmacy) 1 each PRN DAILY PRN MC SEE COMMENTS 01/04/20 20:45 01/05/20 06:43 DC 01/05/20 02:51 Vancomycin HCl 1.5 gm/Sodium Chloride 500 ml @ 250 mls/hr 1X ONCE IV 01/04/20 20:45 01/04/20 22:44 DC 01/04/20 20:58 Sodium Chloride 1,000 ml @ 1,000 mls/hr 1X ONCE IV 01/04/20 21:30 01/04/20 22:29 DC 01/03/20 23:00 Levofloxacin/ Dextrose 100 ml @ 100 mls/hr 1X ONCE IV 01/04/20 23:00 01/04/20 23:59 DC 01/05/20 00:05 Metronidazole 100 ml @ 100 mls/hr 1X ONCE IV 01/04/20 23:45 01/05/20 00:44 DC 01/05/20 00:02 Potassium Chloride/Water 100 ml @ 50 mls/hr 1X ONCE IV 01/05/20 01:45 01/05/20 03:44 DC 01/05/20 01:45 Potassium Chloride/Water 100 ml @ 50 mls/hr 1X ONCE IV 01/05/20 04:00 01/05/20 05:59 DC 01/05/20 02:01 Potassium Chloride 20 meq/ Dextrose/Sodium Chloride 1,010 ml @ 75 mls/hr [id number] IV 01/05/20 01:45 01/05/20 02:14 DC 01/05/20 01:45 Ceftriaxone Sodium (Rocephin) 1 gm 1X ONCE IVP 01/05/20 02:30 01/05/20 02:31 DC 01/05/20 02:27 Linezolid/Dextrose 300 ml @ 300 mls/hr Q12HR IV 01/05/20 09:00 01/05/20 10:14 Daptomycin 420 mg/ Sodium Chloride 50 ml @ 100 mls/hr Q24H IV 01/05/20 07:00 01/05/20 08:15 Meropenem 500 mg/ Sodium Chloride 50 ml @ 100 mls/hr Q6HRS IV 01/05/20 07:00 01/05/20 10:15 Potassium Chloride/Dextrose/ Sod Cl 1,000 ml @ 75 mls/hr [id number] IV 01/05/20 15:00 01/05/20 10:15 ALLERGIES ALLERGIES: Coded Allergies: Penicillins (Verified Allergy, Intermediate, 08/02/15) etodolac (Verified Allergy, Intermediate, 08/02/15) hydrocodone (Verified Allergy, Intermediate, 08/02/15) meperidine (Verified Allergy, Intermediate, 08/02/15) morphine (Verified Allergy, Intermediate, 08/02/15) oxycodone (Verified Allergy, Intermediate, 08/02/15) pentazocine (Verified Allergy, Intermediate, 08/02/15) ROS Review of System 14 point ROS evaluated with pertinent positives noted per HPI PHYSICAL EXAM General: Alert, Oriented X3, Cooperative, No acute distress HEENT: Atraumatic, Other ([place] with dry oral mucosa) Lungs: Other (diminished bases) Heart: Other (Atrial flutter with RVR) Abdomen: Soft, No tenderness Extremities: No cyanosis, No edema Skin: Other (S/P Right arm I & D covered with dressing) Neuro: Normal speech, Sensation intact Psych/Mental Status: Mental status NL, Mood NL MUSCULOSKELETAL: Osteoarthritic changes both hands VITALS/I&O VITALS/I&O: Vital Signs Date Time Temp Pulse Resp B/P (MAP) Pulse Ox O2 Delivery O2 Flow Rate FiO2 01/05/20 12:00 Room Air 01/05/20 12:00 99.0 90 18 149/72 (97) 100 99.0 01/05/20 09:44 10 I & O 01/04/20 01/04/20 01/05/20 15:00 23:00 07:00 Intake Total 1500 ml 1431 ml Output Total 915 ml Balance 1500 ml 516 ml LABS Lab: Laboratory Tests Test 01/04/20 19:20 01/04/20 19:30 01/04/20 21:55 01/05/20 00:25 White Blood Count 22.4 x10^3/uL (4.0-11.0) H Red Blood Count 4.26 x10^6/uL (3.50-5.40) Hemoglobin 13.8 g/dL (12.0-15.5) Hematocrit 41.3 % (36.0-47.0) Mean Corpuscular Volume 97 fL (79-100) Mean Corpuscular Hemoglobin 32 pg (25-35) Mean Corpuscular Hemoglobin Concent 33 g/dL (31-37) Red Cell Distribution Width 13.4 % (11.5-14.5) Platelet Count 159 x10^3/uL (140-400) Neutrophils (%) (Auto) 97 % (31-73) H Lymphocytes (%) (Auto) 1 % (24-48) L Monocytes (%) (Auto) 3 % (0-9) Eosinophils (%) (Auto) 0 % (0-3) Basophils (%) (Auto) 0 % (0-3) Neutrophils # (Auto) 21.6 x10^3/uL (1.8-7.7) H Lymphocytes # (Auto) 0.2 x10^3/uL (1.0-4.8) L Monocytes # (Auto) 0.6 x10^3/uL (0.0-1.1) Eosinophils # (Auto) 0.0 x10^3/uL (0.0-0.7) Basophils # (Auto) 0.0 x10^3/uL (0.0-0.2) Segmented Neutrophils % 74 % (35-66) H Band Neutrophils % 24 % (0-9) H Monocytes % 2 % (0-10) Toxic Granulation Slight Toxic Vacuolation Slight Platelet Estimate Adequate (ADEQUATE) Urine Collection Type U cath Urine Color Yellow Urine Clarity Clear Urine pH 6.0 Urine Specific [place] 1.020 Urine Protein 100 mg/dL (NEG-TRACE) Urine Glucose (UA) Negative mg/dL (NEG) Urine Ketones (Stick) 15 mg/dL (NEG) Urine Blood Large (NEG) Urine Nitrite Positive (NEG) Urine Bilirubin Negative (NEG) Urine Urobilinogen Dipstick 0.2 mg/dL (0.2 mg/dL) Urine Leukocyte Esterase Negative (NEG) Urine RBC Tntc /HPF (0-2) Urine WBC >40 /HPF (0-4) Urine Squamous Epithelial Cells Occ /LPF Urine Bacteria Many /HPF (0-FEW) Urine Hyaline Casts Few /HPF Urine Granular Casts Few /HPF Urine Mucus Slight /LPF Prothrombin Time 14.8 SEC (11.7-14.0) H Prothrombin Time INR 1.2 (0.8-1.1) H Activated Partial Thromboplast Time 31 SEC (24-38) Sodium Level 135 mmol/L (136-145) L 132 mmol/L (136-145) L Potassium Level 3.4 mmol/L (3.5-5.1) L 2.8 mmol/L (3.5-5.1) *L Chloride Level 100 mmol/L (98-107) 98 mmol/L (98-107) Carbon Dioxide Level 24 mmol/L (21-32) 19 mmol/L (21-32) L Anion Gap 11 (6-14) 15 (6-14) H Blood Urea Nitrogen 40 mg/dL (7-20) H 36 mg/dL (7-20) H Creatinine 1.3 mg/dL (0.6-1.0) H 1.2 mg/dL (0.6-1.0) H Estimated GFR (Cockcroft-Gault) 38.7 42.4 BUN/Creatinine Ratio 31 (6-20) H 30 (6-20) H Glucose Level 105 mg/dL (70-99) H 222 mg/dL (70-99) H Lactic Acid Level 1.4 mmol/L (0.4-2.0) 1.9 mmol/L (0.4-2.0) Calcium Level 9.3 mg/dL (8.5-10.1) 8.6 mg/dL (8.5-10.1) Magnesium Level 2.2 mg/dL (1.8-2.4) Total Bilirubin 1.0 mg/dL (0.2-1.0) 1.0 mg/dL (0.2-1.0) Aspartate Amino Transferase (AST) 25 U/L (15-37) 24 U/L (15-37) Alanine Aminotransferase (ALT) 20 U/L (14-59) 16 U/L (14-59) Alkaline Phosphatase 55 U/L (46-116) 48 U/L (46-116) Creatine Kinase 374 U/L (26-192) H 378 U/L (26-192) H Troponin I Quantitative < 0.017 ng/mL (0.000-0.055) C-Reactive Protein, Quantitative 283.6 mg/L (0-3.3) H Total Protein 6.6 g/dL (6.4-8.2) 6.1 g/dL (6.4-8.2) L Albumin 2.7 g/dL (3.4-5.0) L 2.5 g/dL (3.4-5.0) L Albumin/Globulin Ratio 0.7 (1.0-1.7) L 0.7 (1.0-1.7) L Test 01/05/20 07:35 White Blood Count 19.7 x10^3/uL (4.0-11.0) H Red Blood Count 3.38 x10^6/uL (3.50-5.40) L Hemoglobin 11.0 g/dL (12.0-15.5) L Hematocrit 32.9 % (36.0-47.0) L Mean Corpuscular Volume 97 fL (79-100) Mean Corpuscular Hemoglobin 33 pg (25-35) Mean Corpuscular Hemoglobin Concent 34 g/dL (31-37) Red Cell Distribution Width 13.4 % (11.5-14.5) Platelet Count 123 x10^3/uL (140-400) L Neutrophils (%) (Auto) 94 % (31-73) H Lymphocytes (%) (Auto) 2 % (24-48) L Monocytes (%) (Auto) 4 % (0-9) Eosinophils (%) (Auto) 1 % (0-3) Basophils (%) (Auto) 0 % (0-3) Neutrophils # (Auto) 18.5 x10^3/uL (1.8-7.7) H Lymphocytes # (Auto) 0.4 x10^3/uL (1.0-4.8) L Monocytes # (Auto) 0.7 x10^3/uL (0.0-1.1) Eosinophils # (Auto) 0.1 x10^3/uL (0.0-0.7) Basophils # (Auto) 0.0 x10^3/uL (0.0-0.2) Sodium Level 137 mmol/L (136-145) Potassium Level 3.1 mmol/L (3.5-5.1) L Chloride Level 105 mmol/L (98-107) Carbon Dioxide Level 19 mmol/L (21-32) L Anion Gap 13 (6-14) Blood Urea Nitrogen 26 mg/dL (7-20) H Creatinine 0.9 mg/dL (0.6-1.0) Estimated GFR (Cockcroft-Gault) 59.1 Glucose Level 149 mg/dL (70-99) H Calcium Level 8.1 mg/dL (8.5-10.1) L Laboratory Tests 01/04/20 19:20 01/05/20 07:35 Laboratory Tests 01/04/20 21:55 01/05/20 00:25 01/05/20 07:35 ECHOCARDIOGRAM ECHOCARDIOGRAM <Conclusion> The left ventricle is normal size. The left ventricular systolic function is normal and the ejection fraction is within normal range. The Ejection Fraction is 60-65%. There is no significant aortic valvular stenosis. Doppler and Color Flow revealed no significant aortic regurgitation. Doppler and Color-flow revealed trace mitral regurgitation. Doppler and Color Flow revealed trace tricuspid regurgitation. There is no evidence of significant pericardial effusion. DATE: 01/02/18 1230 STRESS TEST STRESS TEST Conclusion 1. No electrocardiographic changes suggestive of myocardial ischemia with pharmacological stress. 2. No significant perfusion defects to suggest myocardial ischemia or scar. 3. Normal wall motion and wall thickening with an ejection fraction of 80%. 4. Scan indicates low risk for future cardiac events. DATE: 03/27/162019 ASSESSMENT/PLAN ASSESSMENT/PLAN 1. Aflutter with RVR: new. likely combination of metabolic issues and sympathetic surge with surgery and withholding verapamil 2. Right arm cellulitis:S/P I & D. ID following 3. Hypothyroidism: TSH on goal 4. HTN urgency: better 5. MELA with hypokalemia: prerenal. Improved. 6. HLP 7. Metabolic encephalopathy: better 8. Recent mechanical fall with right arm contusion Recommendations 1. Check Mg and replace as warranted. Replace K. 2. MCOT as an outpt 3. Start cardizem bolus and drip 4. ASA for now. KOBY RICHARD MD 01/05/202038: CARDIAC CONSULT ASSESSMENT/PLAN ASSESSMENT/PLAN Patient seen and examined. agree with BUSINESS CONTINUITY MANAGEMENT DIRECTOR's assessment and plan. A. fib/flutter newly diagnosed, rate better controlled with CZM gtt She is poor candidate for termite treater helper AC. Continue ASA BP better controlled Continue antibiotics per ID Thank you for your consultation VILMA ROSE APRN Jan 05, 2020 15:15 KOBY RICHARD MD Jan 05, 2020 20:39
[2020-01-05] MEDS: HYDROcodone/APAP 5/325MG 1 TAB TABLET PO PRN ×2 (15:22→16:40)
--- NOTE | 2020-01-05 15:56 | EKG ---
[facility] [address] [place] [address] Test Date: 2020-01-05 Test Time: 15:51:49 Pat Name: BECKIE HUFF Department: Room: 116 1 Gender: F Director Wholesale: ANGEL : 1930 Requested By: VILMA ROSE Order Number: [id number] Reading MD: Measurements Intervals [place] Rate: 123 P: CO: QRS: -13 QRSD: 78 T: 54 QT: 308 QTc: 446 Interpretive Statements IRREGULAR RHYTHM, NO P-WAVE FOUND LEFTWARD AXIS OTHERWISE NORMAL ECG RI6.01 Compared to ECG 03/25/2016 21:21:06 Sinus rhythm no longer present
--- NOTE | 2020-01-05 19:34 | NUR ---
1000 Pt back from OR A/Ox3, right arm wrapped in josep, no pain at this time. Orders acknowledged. 1200 Pt sat up to eat lunch and HR 140's, Lalo notified. Orders to consult cardiology. Cardizem gtt started-will monitor heart rate.
[2020-01-05] MEDS ORDERED: VANCOMYCIN 1 GM in IV NORMAL SALINE 250ML 250 ML IV SCH (21:00)
--- NOTE | 2020-01-05 21:30 | NUR ---
Patient in afib at start of shift, converted to SR around 2100.
[2020-01-06] VITALS (15 sets, daily range): BP systolic 100–123; BP diastolic 46–68
[2020-01-06] MEDS: POTASSIUM CL 20MEQ D5-0.45NACL 1,000 ML IV SCH ×2 (03:01→17:08)
[2020-01-06] MEDS: HYDROcodone/APAP 5/325MG 1 TAB TABLET PO PRN ×4 (03:04→20:57)
[2020-01-06 05:39] LABS: BASO % 0 % (0-3); EOS % 0 % (0-3); HEMOGLOBIN 10.5 g/dL (12.0-15.5); LYMPH # 0.4 x10^3/uL (1.0-4.8); LYMPH % 2 % (24-48); MEAN CORPUSCULAR HEMOGLOBIN 33 pg (25-35); MEAN CORPUSCULAR HGB CONC 34 g/dL (31-37); MEAN CORPUSCULAR VOLUME 98 fL (79-100); MONO # 1.4 x10^3/uL (0.0-1.1); MONO % 7 % (0-9); NEUT % 91 % (31-73); PLATELET COUNT 127 x10^3/uL (140-400); RED BLOOD COUNT 3.18 x10^6/uL (3.50-5.40); RED CELL DISTRIBUTION WIDTH 13.9 % (11.5-14.5); WHITE BLOOD COUNT 18.8 x10^3/uL (4.0-11.0)
[2020-01-06] MEDS: MEROPENEM 500 MG in IV NORMAL SALINE 50ML 50 ML IV SCH ×3 (05:54→18:34)
[2020-01-06 06:00] LABS: ALBUMIN 1.6 g/dL (3.4-5.0); ALBUMIN/GLOBULIN RATIO 0.5 (1.0-1.7); CREATININE 0.9 mg/dL (0.6-1.0); GFR 59.1; TOTAL BILIRUBIN 0.4 mg/dL (0.2-1.0)
[2020-01-06] MEDS ORDERED: cefTRIAXone IV Push 1 GM VIAL. IVP SCH (06:00)
--- NOTE | 2020-01-06 06:29 | PDOC ---
Infectious Disease Note Subjective Subjective Sleeping and comfortable. Awakened briefly Nursing reports has been doing well overnight Vital Sign Vital Signs Vital Signs Date Time Temp Pulse Resp B/P (MAP) Pulse Ox O2 Delivery O2 Flow Rate FiO2 01/06/20 06:00 64 10 113/53 (73) 99 Room Air 01/06/20 04:00 97.5 97.5 01/05/20 09:44 10 Physical Exam PHYSICAL EXAM CONSTITUTIONAL: She is lying in bed. She is in no acute distress. She appears comfortable. HEENT: Oral cavity, pharynx is dry, but clear. NECK: Without JVD or swelling. HEART: S1, S2. No gross murmur. ABDOMEN: Soft. LUNGS: Without Clear to auscultation. ABDOMEN: Soft, nontender, no guarding, no rebound. EXTREMITIES: Without clubbing, cyanosis. Right upper extremity is heavily bandaged NEUROLOGIC: She appears nonfocal IV: LUE Midline is clean Labs Lab Laboratory Tests Test 01/05/20 07:35 01/06/20 05:00 White Blood Count 19.7 x10^3/uL (4.0-11.0) 18.8 x10^3/uL (4.0-11.0) Red Blood Count 3.38 x10^6/uL (3.50-5.40) 3.18 x10^6/uL (3.50-5.40) Hemoglobin 11.0 g/dL (12.0-15.5) 10.5 g/dL (12.0-15.5) Hematocrit 32.9 % (36.0-47.0) 31.0 % (36.0-47.0) Mean Corpuscular Volume 97 fL (79-100) 98 fL (79-100) Mean Corpuscular Hemoglobin 33 pg (25-35) 33 pg (25-35) Mean Corpuscular Hemoglobin Concent 34 g/dL (31-37) 34 g/dL (31-37) Red Cell Distribution Width 13.4 % (11.5-14.5) 13.9 % (11.5-14.5) Platelet Count 123 x10^3/uL (140-400) 127 x10^3/uL (140-400) Neutrophils (%) (Auto) 94 % (31-73) 91 % (31-73) Lymphocytes (%) (Auto) 2 % (24-48) 2 % (24-48) Monocytes (%) (Auto) 4 % (0-9) 7 % (0-9) Eosinophils (%) (Auto) 1 % (0-3) 0 % (0-3) Basophils (%) (Auto) 0 % (0-3) 0 % (0-3) Neutrophils # (Auto) 18.5 x10^3/uL (1.8-7.7) 17.0 x10^3/uL (1.8-7.7) Lymphocytes # (Auto) 0.4 x10^3/uL (1.0-4.8) 0.4 x10^3/uL (1.0-4.8) Monocytes # (Auto) 0.7 x10^3/uL (0.0-1.1) 1.4 x10^3/uL (0.0-1.1) Eosinophils # (Auto) 0.1 x10^3/uL (0.0-0.7) 0.0 x10^3/uL (0.0-0.7) Basophils # (Auto) 0.0 x10^3/uL (0.0-0.2) 0.0 x10^3/uL (0.0-0.2) Sodium Level 137 mmol/L (136-145) 138 mmol/L (136-145) Potassium Level 3.1 mmol/L (3.5-5.1) 4.0 mmol/L (3.5-5.1) Chloride Level 105 mmol/L (98-107) 106 mmol/L (98-107) Carbon Dioxide Level 19 mmol/L (21-32) 22 mmol/L (21-32) Anion Gap 13 (6-14) 10 (6-14) Blood Urea Nitrogen 26 mg/dL (7-20) 19 mg/dL (7-20) Creatinine 0.9 mg/dL (0.6-1.0) 0.9 mg/dL (0.6-1.0) Estimated GFR (Cockcroft-Gault) 59.1 59.1 Glucose Level 149 mg/dL (70-99) 128 mg/dL (70-99) Calcium Level 8.1 mg/dL (8.5-10.1) 8.0 mg/dL (8.5-10.1) Magnesium Level 2.1 mg/dL (1.8-2.4) BUN/Creatinine Ratio 21 (6-20) Total Bilirubin 0.4 mg/dL (0.2-1.0) Aspartate Amino Transf (AST/SGOT) 19 U/L (15-37) Alanine Aminotransferase (ALT/SGPT) 19 U/L (14-59) Alkaline Phosphatase 48 U/L (46-116) Total Protein 5.0 g/dL (6.4-8.2) Albumin 1.6 g/dL (3.4-5.0) Albumin/Globulin Ratio 0.5 (1.0-1.7) Micro IMPRESSION: 1. Sinusitis. 2. No intracranial hemorrhage or acute finding noted intracranially. IMPRESSION: No acute DVT in the right upper extremity IMPRESSION: 1. Soft tissue swelling right arm. 2. Arthritis right wrist. 3. No fracture in the right forearm. 4. No fracture of the right humerus. 5. Some limitations at the elbow as the lateral views are obliquely positioned but no definite fracture. Objective Assessment Possible Sepsis - POA 01/04 - Bandemia - s/p Dexamethasone 01/05 RUE Cellulitis s/p Incision and drainage right forearm deep abscess 01/05 New Afib 01/05 PCN allergy - uncertain if ever had Amox Sinusitis ? UTI - POA MELA - better Plan Plan of Care Changed to Meropenem/Dapto and Zyvox 01/05 F/u labs in am and blood and urine cults/wound Wound care per Ortho D/w nursing TONI CRUMP MD Jan 06, 2020 06:29
[2020-01-06] MEDS: DAPTOmycin (GENERIC) IVPB 420 MG in IV NORMAL SALINE 50ML 50 ML IV SCH (06:32)
[2020-01-06] MEDS: ASPIRIN ENTERIC COATED 81 MG TABLET.DR. PO SCH (10:05)
[2020-01-06] MEDS: LACTOBACILLUS RHAMNOSUS GG 1 CAPSULE. PO SCH ×2 (10:06→20:56)
--- NOTE | 2020-01-06 10:43 | NUR ---
SS following for discharge planning. SS reviewed pt chart. Pt is from home and is currently on room air. PT/OT orders needed when ready. Per pt's RN, pt may need shelter unit. SS will continue to follow for discharge planning.
--- NOTE | 2020-01-06 10:47 | PDOC ---
VILMA ROSE BELT CONVEYOR DRIER 01/06/20 1047: CARDIO Progress Notes Date and Time Date of Service 01/06/2020 Time of Evaluation 0940 Subjective Subjective: No Chest Pain, No shortness of breath, No Palpitations Vitals Vitals Vital Signs Date Time Temp Pulse Resp B/P (MAP) Pulse Ox O2 Delivery O2 Flow Rate FiO2 01/06/20 10:06 121/62 01/06/20 09:10 99 Room Air 10.0 01/06/20 06:00 64 10 01/06/20 04:00 97.5 97.5 Weight Weight [ ] Input and Output Intake and Output Intake and Output 01/06/20 07:00 Intake Total 2965 ml Output Total 2135 ml Balance 830 ml Intake Oral 800 ml IV Total 2165 ml Output Urine Total 2085 ml Estimated Blood Loss 50 ml Laboratory Labs Laboratory Tests Test 01/06/20 05:00 White Blood Count 18.8 x10^3/uL (4.0-11.0) Red Blood Count 3.18 x10^6/uL (3.50-5.40) Hemoglobin 10.5 g/dL (12.0-15.5) Hematocrit 31.0 % (36.0-47.0) Mean Corpuscular Volume 98 fL (79-100) Mean Corpuscular Hemoglobin 33 pg (25-35) Mean Corpuscular Hemoglobin Concent 34 g/dL (31-37) Red Cell Distribution Width 13.9 % (11.5-14.5) Platelet Count 127 x10^3/uL (140-400) Neutrophils (%) (Auto) 91 % (31-73) Lymphocytes (%) (Auto) 2 % (24-48) Monocytes (%) (Auto) 7 % (0-9) Eosinophils (%) (Auto) 0 % (0-3) Basophils (%) (Auto) 0 % (0-3) Neutrophils # (Auto) 17.0 x10^3/uL (1.8-7.7) Lymphocytes # (Auto) 0.4 x10^3/uL (1.0-4.8) Monocytes # (Auto) 1.4 x10^3/uL (0.0-1.1) Eosinophils # (Auto) 0.0 x10^3/uL (0.0-0.7) Basophils # (Auto) 0.0 x10^3/uL (0.0-0.2) Erythrocyte Sedimentation Rate 80 (0-25) Sodium Level 138 mmol/L (136-145) Potassium Level 4.0 mmol/L (3.5-5.1) Chloride Level 106 mmol/L (98-107) Carbon Dioxide Level 22 mmol/L (21-32) Anion Gap 10 (6-14) Blood Urea Nitrogen 19 mg/dL (7-20) Creatinine 0.9 mg/dL (0.6-1.0) Estimated GFR (Cockcroft-Gault) 59.1 BUN/Creatinine Ratio 21 (6-20) Glucose Level 128 mg/dL (70-99) Calcium Level 8.0 mg/dL (8.5-10.1) Total Bilirubin 0.4 mg/dL (0.2-1.0) Aspartate Amino Transf (AST/SGOT) 19 U/L (15-37) Alanine Aminotransferase (ALT/SGPT) 19 U/L (14-59) Alkaline Phosphatase 48 U/L (46-116) Total Protein 5.0 g/dL (6.4-8.2) Albumin 1.6 g/dL (3.4-5.0) Albumin/Globulin Ratio 0.5 (1.0-1.7) Physical Exam HEENT: Neck Supple W Full Motion Chest: Symmetric LUNGS: Clear to Auscultation Heart: RRR (SR) Abdomen: Soft N/T Extremities: No Calf Tenderness Neurology: alert, oriented Assessment Assessment 1. Aflutter with RVR: new. likely combination of metabolic issues and sympathet ic surge with surgery and withholding verapamil 2. Right arm cellulitis:S/P I & D. ID following 3. Hypothyroidism: TSH on goal 4. HTN urgency: controlled 5. MELA with hypokalemia: prerenal. resolved 6. HLP 7. Metabolic encephalopathy: better 8. Recent mechanical fall with right arm contusion Recommendations 1. Converted to SR, DC home verapamil. Will place on cardizem CD 240 mg 2. MCOT as an outpt and will note burden. TTE as an outpt. 3. ASA for now, possibly a poor candidate for NOAC KOBY RICHARD MD 01/06/202038: CARDIO Progress Notes Assessment Assessment Patient seen and examined. Agree with AUTOMOTIVE TEACHER's assessment and plan. Patient presently back in SR Agree with event monitor as outpatient to assess arrhythmia burden VILMA ROSE APRN Jan 06, 2020 10:47 KOBY RICHARD MD Jan 06, 2020 20:39
--- NOTE | 2020-01-06 12:02 | PDOC ---
[employer] [facility] PROGRESS NOTE Chief Complaint Chief Complaint fever, R arm cellulitis, potential sepsis History of Present Illness History of Present Illness 01/06/2020 - discussed pt with RN - reviewed chart - discussed pt progression and plan with daughter who was present in room - rate controlled cardio monitoring - no acute events overnight Vitals/I&O Vitals/I&O: Vital Signs Date Time Temp Pulse Resp B/P (MAP) Pulse Ox O2 Delivery O2 Flow Rate FiO2 01/06/20 10:06 121/62 01/06/20 09:10 99 Room Air 10.0 01/06/20 06:00 64 10 01/06/20 04:00 97.5 97.5 I & O 01/05/20 01/05/20 01/06/20 15:00 23:00 07:00 Intake Total 200 ml 1100 ml 1665 ml Output Total 50 ml 1815 ml 270 ml Balance 150 ml -715 ml 1395 ml Physical Exam Physical Exam: CONSTITUTIONAL: She is lying in bed. She is in no acute distress. She appears comfortable. HEENT: Oral cavity, pharynx is dry, but clear. NECK: Without JVD or swelling. HEART: S1, S2. No gross murmur. ABDOMEN: Soft. LUNGS: Without Clear to auscultation. ABDOMEN: Soft, nontender, no guarding, no rebound. EXTREMITIES: Without clubbing, cyanosis. Right upper extremity is heavily bandaged NEUROLOGIC: She appears nonfocal IV: LUE Midline is clean General: Alert, Oriented X3, Cooperative, No acute distress Heart: Other (Atrial flutter with RVR) Lungs: Clear Abdomen: Normal bowel sounds, Soft, No tenderness Extremities: No cyanosis, No edema Skin: Other (S/P Right arm I & D covered with dressing) Labs Labs: Laboratory Tests Test 01/06/20 05:00 White Blood Count 18.8 x10^3/uL (4.0-11.0) Red Blood Count 3.18 x10^6/uL (3.50-5.40) Hemoglobin 10.5 g/dL (12.0-15.5) Hematocrit 31.0 % (36.0-47.0) Mean Corpuscular Volume 98 fL (79-100) Mean Corpuscular Hemoglobin 33 pg (25-35) Mean Corpuscular Hemoglobin Concent 34 g/dL (31-37) Red Cell Distribution Width 13.9 % (11.5-14.5) Platelet Count 127 x10^3/uL (140-400) Neutrophils (%) (Auto) 91 % (31-73) Lymphocytes (%) (Auto) 2 % (24-48) Monocytes (%) (Auto) 7 % (0-9) Eosinophils (%) (Auto) 0 % (0-3) Basophils (%) (Auto) 0 % (0-3) Neutrophils # (Auto) 17.0 x10^3/uL (1.8-7.7) Lymphocytes # (Auto) 0.4 x10^3/uL (1.0-4.8) Monocytes # (Auto) 1.4 x10^3/uL (0.0-1.1) Eosinophils # (Auto) 0.0 x10^3/uL (0.0-0.7) Basophils # (Auto) 0.0 x10^3/uL (0.0-0.2) Erythrocyte Sedimentation Rate 80 (0-25) Sodium Level 138 mmol/L (136-145) Potassium Level 4.0 mmol/L (3.5-5.1) Chloride Level 106 mmol/L (98-107) Carbon Dioxide Level 22 mmol/L (21-32) Anion Gap 10 (6-14) Blood Urea Nitrogen 19 mg/dL (7-20) Creatinine 0.9 mg/dL (0.6-1.0) Estimated GFR (Cockcroft-Gault) 59.1 BUN/Creatinine Ratio 21 (6-20) Glucose Level 128 mg/dL (70-99) Calcium Level 8.0 mg/dL (8.5-10.1) Total Bilirubin 0.4 mg/dL (0.2-1.0) Aspartate Amino Transf (AST/SGOT) 19 U/L (15-37) Alanine Aminotransferase (ALT/SGPT) 19 U/L (14-59) Alkaline Phosphatase 48 U/L (46-116) Total Protein 5.0 g/dL (6.4-8.2) Albumin 1.6 g/dL (3.4-5.0) Albumin/Globulin Ratio 0.5 (1.0-1.7) Review of Systems Review of Systems: Neuro: pt denies numbness, confusion, or change in vision GI: pt denies NV, abdominal pain Assessment and Plan Assessmemt and Plan assesment 01/06/2020 - discussed pt with RN - reviewed chart - discussed pt progression and plan with daughter who was present in room - rate controlled cardio monitoring - no acute events overnight Plan - pelvic x-rays for damage to hips b/l - manager cardiac cath - PT/OT - continue CMP daily - continue home meds Comment Review of Relevant I have reviewed the following items amarjit (where applicable) has been applied. Medications: Current Medications Medications (Trade) Dose Ordered Sig/Jason Route PRN Reason Start Time Stop Time Status Last Admin Dose Admin Potassium Chloride/Dextrose/ Sod Cl 1,000 ml @ 75 mls/hr [id number] IV 01/05/20 15:00 01/06/20 03:01 Acetaminophen/ Hydrocodone Bitart (Lortab 5/325) 1 tab PRN Q4HRS PRN PO PAIN 01/05/20 15:15 01/06/20 08:10 Acetaminophen/ Hydrocodone Bitart (Lortab 5/325) 2 tab PRN Q4HRS PRN PO PAIN 01/05/20 15:15 01/06/20 03:04 Diltiazem HCl 125 mg/Sodium Chloride 125 ml @ 5 mls/hr 1X ONCE IV 01/05/20 15:15 01/06/20 16:14 01/05/20 15:15 Diltiazem HCl (Cardizem Iv Push) 10 mg 1X ONCE IVP 01/05/20 15:15 01/05/20 15:17 DC 01/05/20 15:23 Potassium Chloride (Klor-Con) 20 meq 1X ONCE PO 01/05/20 15:15 01/05/20 15:19 DC 01/05/20 15:22 Aspirin (Ecotrin) 81 mg DAILYWBKFT PO 01/06/20 08:00 01/06/20 10:05 Lactobacillus Rhamnosus (Culturelle) 1 cap BID PO 01/06/20 09:00 01/06/20 10:06 Diltiazem HCl (Cardizem 24hr Cd) 240 mg DAILY PO 01/06/20 11:00 01/06/20 10:06 FRANKIE SANCHEZ K III DO Jan 06, 2020 12:02
--- NOTE | 2020-01-06 15:02 | RAD ---
AP view the pelvis and two-view study of both hips Clinical indications: Left hip pain status post fall. Left hip: No acute fracture of the proximal left femur is seen. No dislocation is seen. There is a fracture fragment seen just inferior to the left femoral neck or inferior hip joint space. This may represent a fracture fragment from the adjacent ischial bone. Right hip: No acute fracture or dislocation or lytic process is seen. No diastases of the symphysis pubis or either SI joint is seen. IMPRESSION: Possible avulsion fracture from the lateral aspect of the left ischial bone. Recommend dedicated left hip CT study for further evaluation. Electronically signed by: Sohail Diego MD (01/06/2020 2:59 PM) [facility]
[2020-01-07] VITALS (9 sets, daily range): BP systolic 109–175; BP diastolic 55–79
[2020-01-07 00:08] LABS: HEMOGLOBIN A1C 5.3 % (4.8-5.6)
[2020-01-07] MEDS: MEROPENEM 500 MG in IV NORMAL SALINE 50ML 50 ML IV SCH ×5 (00:17→23:50)
[2020-01-07] MEDS: HYDROcodone/APAP 5/325MG 1 TAB TABLET PO PRN ×2 (05:39→15:45)
[2020-01-07] MEDS: DAPTOmycin (GENERIC) IVPB 420 MG in IV NORMAL SALINE 50ML 50 ML IV SCH (06:25)
[2020-01-07] MEDS: POTASSIUM CL 20MEQ D5-0.45NACL 1,000 ML IV SCH ×2 (06:26→21:39)
--- NOTE | 2020-01-07 07:23 | PDOC ---
Infectious Disease Note Subjective Subjective Doing ok. pain controlled No F/C/S/N/V/D/SOA Nursing reports has been doing well overnight ROS ROS o/w neg Vital Sign Vital Signs Vital Signs Date Time Temp Pulse Resp B/P (MAP) Pulse Ox O2 Delivery O2 Flow Rate FiO2 01/07/20 06:39 98 Room Air 10.0 01/07/20 04:00 97.8 62 20 109/72 (84) 97.8 Physical Exam PHYSICAL EXAM CONSTITUTIONAL: She is lying in bed. She is in no acute distress. She appears comfortable. Alert and smiling HEENT: Oral cavity, pharynx is dry, but clear. nml conj NECK: Without JVD or swelling. HEART: S1, S2. No gross murmur. ABDOMEN: Soft. NT, ND LUNGS: Clear to auscultation. ABDOMEN: Soft, nontender, no guarding, no rebound. EXTREMITIES: Without clubbing, cyanosis. Right upper extremity is heavily bandaged NEUROLOGIC: She appears nonfocal IV: LUE Midline is clean SKIN: no rash Labs Micro IMPRESSION: 1. Sinusitis. 2. No intracranial hemorrhage or acute finding noted intracranially. IMPRESSION: No acute DVT in the right upper extremity IMPRESSION: 1. Soft tissue swelling right arm. 2. Arthritis right wrist. 3. No fracture in the right forearm. 4. No fracture of the right humerus. 5. Some limitations at the elbow as the lateral views are obliquely positioned but no definite fracture. Objective Assessment Possible Sepsis - POA 01/04 - better Bandemia - s/p Dexamethasone 01/05 RUE Cellulitis s/p Incision and drainage right forearm deep abscess 01/05 GPC in chains and clusters on gram stain 01/05 New Afib 01/05 PCN allergy - uncertain if ever had Amox Sinusitis GNR UTI 01/04 - POA MELA - better Plan Plan of Care Changed to Meropenem/Dapto and Zyvox 01/05. D/c Dapto after today F/u labs in am and blood and urine cults/wound Wound care per Ortho D/w nursing TONI CRUMP MD Jan 07, 2020 07:23
[2020-01-07] MEDS: ASPIRIN ENTERIC COATED 81 MG TABLET.DR. PO SCH (09:23)
[2020-01-07] MEDS: LACTOBACILLUS RHAMNOSUS GG 1 CAPSULE. PO SCH ×2 (09:24→21:35)
[2020-01-07 09:31] LABS: BASO # 0.1 x10^3/uL (0.0-0.2); BASO % 0 % (0-3); EOS # 0.1 x10^3/uL (0.0-0.7); EOS % 1 % (0-3); LYMPH # 0.7 x10^3/uL (1.0-4.8); LYMPH % 5 % (24-48); MEAN CORPUSCULAR HEMOGLOBIN 33 pg (25-35); MEAN CORPUSCULAR HGB CONC 33 g/dL (31-37); MEAN CORPUSCULAR VOLUME 98 fL (79-100); MONO # 1.2 x10^3/uL (0.0-1.1); MONO % 9 % (0-9); NEUT # 11.3 x10^3/uL (1.8-7.7); NEUT % 84 % (31-73); PLATELET COUNT 167 x10^3/uL (140-400); RED BLOOD COUNT 3.66 x10^6/uL (3.50-5.40); RED CELL DISTRIBUTION WIDTH 14.3 % (11.5-14.5); WHITE BLOOD COUNT 13.4 x10^3/uL (4.0-11.0)
[2020-01-07 09:40] LABS: CALCIUM 8.7 mg/dL (8.5-10.1); CREATININE 0.9 mg/dL (0.6-1.0); GFR 59.1; POTASSIUM 4.2 mmol/L (3.5-5.1)
--- NOTE | 2020-01-07 11:14 | PDOC ---
[employer] PROGRESS NOTE Chief Complaint Chief Complaint fever, R arm cellulitis, potential sepsis Possible avulsion fracture History of Present Illness History of Present Illness 01/06/2020 - discussed pt with RN - reviewed chart - discussed pt progression and plan with daughter who was present in room - rate controlled cardio monitoring - no acute events overnight - discussed imaging of pelvis with pt and daughter - discussed pt with RN - pt has become more confused and disoriented over night. - reviewed chart - discussed pt progression and plan with daughter who was present in room. daughter was concerned with mental status of pt. we discussed metabolic encephalopathy\ - d/c cardizem drip - rate controlled cardio monitoring - no acute events overnight Vitals/I&O Vitals/I&O: Vital Signs Date Time Temp Pulse Resp B/P (MAP) Pulse Ox O2 Delivery O2 Flow Rate FiO2 01/07/20 09:24 64 144/65 01/07/20 08:00 Room Air 01/07/20 08:00 97.7 20 96 97.7 01/07/20 06:39 10.0 I & O 01/06/20 01/06/20 01/07/20 15:00 23:00 07:00 Intake Total 30 ml 1955 ml 100 ml Output Total 650 ml 700 ml 1450 ml Balance -620 ml 1255 ml -1350 ml Physical Exam Physical Exam: CONSTITUTIONAL: She is lying in bed. She is in no acute distress. She appears comfortable. Alert and smiling HEENT: Oral cavity, pharynx is dry, but clear. nml conj NECK: Without JVD or swelling. HEART: S1, S2. No gross murmur. ABDOMEN: Soft. NT, ND LUNGS: Clear to auscultation. ABDOMEN: Soft, nontender, no guarding, no rebound. EXTREMITIES: Without clubbing, cyanosis. Right upper extremity is heavily bandaged NEUROLOGIC: She appears nonfocal IV: LUE Midline is clean SKIN: no rash General: Alert, Oriented X3, Cooperative, No acute distress Heart: Other (Atrial flutter with RVR) Lungs: Clear Abdomen: Normal bowel sounds, Soft, No tenderness Extremities: No cyanosis, No edema Skin: Other (S/P Right arm I & D covered with dressing) Labs Labs: Laboratory Tests Test 01/07/20 09:00 01/07/20 09:15 White Blood Count 13.4 x10^3/uL (4.0-11.0) Red Blood Count 3.66 x10^6/uL (3.50-5.40) Hemoglobin 12.0 g/dL (12.0-15.5) Hematocrit 36.0 % (36.0-47.0) Mean Corpuscular Volume 98 fL (79-100) Mean Corpuscular Hemoglobin 33 pg (25-35) Mean Corpuscular Hemoglobin Concent 33 g/dL (31-37) Red Cell Distribution Width 14.3 % (11.5-14.5) Platelet Count 167 x10^3/uL (140-400) Neutrophils (%) (Auto) 84 % (31-73) Lymphocytes (%) (Auto) 5 % (24-48) Monocytes (%) (Auto) 9 % (0-9) Eosinophils (%) (Auto) 1 % (0-3) Basophils (%) (Auto) 0 % (0-3) Neutrophils # (Auto) 11.3 x10^3/uL (1.8-7.7) Lymphocytes # (Auto) 0.7 x10^3/uL (1.0-4.8) Monocytes # (Auto) 1.2 x10^3/uL (0.0-1.1) Eosinophils # (Auto) 0.1 x10^3/uL (0.0-0.7) Basophils # (Auto) 0.1 x10^3/uL (0.0-0.2) Sodium Level 139 mmol/L (136-145) Potassium Level 4.2 mmol/L (3.5-5.1) Chloride Level 106 mmol/L (98-107) Carbon Dioxide Level 24 mmol/L (21-32) Anion Gap 9 (6-14) Blood Urea Nitrogen 19 mg/dL (7-20) Creatinine 0.9 mg/dL (0.6-1.0) Estimated GFR (Cockcroft-Gault) 59.1 Glucose Level 100 mg/dL (70-99) Calcium Level 8.7 mg/dL (8.5-10.1) Review of Systems Review of Systems: GI: denies NV, abdominal pain, normal appetite neuro: pt is confused and slightly disoriented. Assessment and Plan Assessmemt and Plan fever, R arm cellulitis, potential sepsis Possible avulsion fracture Craft - consult ortho for potentially avulsed left ischium - further imaging of hip pending recommendation of specialist - icu monitoring - continue medication - PT/OT - daily CMP Appreciate subspecialist input Full code Comment Review of Relevant I have reviewed the following items amarjit (where applicable) has been applied. FRANKIE SANCHEZ III DO Jan 07, 2020 11:14
--- NOTE | 2020-01-07 11:21 | PDOC1 ---
History and Physical Date of Admission: Date of Admission DATE: 01/07/20 TIME: 11:19 Chief Complaint: Problems: (1) Chest pain (2) Sepsis (3) Hypokalemia (4) Urinary tract infection (5) Encephalopathy acute (6) Right arm cellulitis Chief Complain: Mental status change Chest pain History of Present Illness: HPI: Patient is a 89 year old female with history of breast cancer who presents with altered mental status, fever 100.2 and arm pain and swelling. She lives by herself. Reportedly the patient fell 2 days ago at home injuring right arm over her medial bicep. Patient reported to family members S today that her right arm began to hurt. This afternoon, the family members became concerned the patient was confused swelling redness right upper extremity extending from wrist to proximal bicep. EMS was contacted. Patient is normally alert and oriented 3 but is alert and oriented to person only with confused speech on ED arrival. Reports diffuse right arm pain, tenderness and swelling. Denies hitting her head, neck pain or jury complaint. No gross injury evidence of head, neck, torso or lower extremity trauma. Right arm feels warm with erythema and swelling done from wrist to proximal bicep.. There is no soft tissue given breakdown appreciated. There is a contusion over the right bicep consistent with reported injury. No deformity appreciated. Arm is diffusely tender with pain on range of motion. Shoulder, elbow and wrist joints do not to be especially swollen or hot. Distal pulses are intact. Sensation and motor function are intact. Patient does have history of lymphedema of right arm. Patient is confused, additional information is obtained from family members who confirm [ ] Past Medical/Surgical History: PMH/PSH: Past Medical History: Cancer, Hypertension, Stroke, Other Additional Past Medical Histor: breast, skin cancer, cataracts, menier's, lymphedema to right arm Past Surgical History: Appendectomy, Cholecystectomy, Hysterectomy, Knee Replacement, Other Additional Past Surgical Histo: back surgery Smoking Status: Never Smoker Alcohol Use: None Drug Use: None Allergies: Allergies: Coded Allergies: Penicillins (Verified Allergy, Intermediate, 08/02/15) etodolac (Verified Allergy, Intermediate, 08/02/15) hydrocodone (Verified Allergy, Intermediate, 08/02/15) meperidine (Verified Allergy, Intermediate, 08/02/15) morphine (Verified Allergy, Intermediate, 08/02/15) oxycodone (Verified Allergy, Intermediate, 08/02/15) pentazocine (Verified Allergy, Intermediate, 08/02/15) Family History: Family History: Hypertension Social History: Social Hisoty: She lives alone does not drink smoke or take drugs retired Current Medications: Current Medications Current Medications Sodium Chloride 1,000 ml @ 1,000 mls/hr 1X ONCE IV Last administered on 01/04/20at 20:58; Start 01/04/20 at 19:30; Stop 01/04/20 at 20:29; Status DC Vancomycin HCl (Vanco Per Pharmacy) 1 each PRN DAILY PRN MC SEE COMMENTS Last administered on 01/05/20at 02:51; Start 01/04/20 at 20:45; Stop 01/05/20 at 06:43; Status DC Vancomycin HCl 1.5 gm/Sodium Chloride 500 ml @ 250 mls/hr 1X ONCE IV Last administered on 01/04/20at 20:58; Start 01/04/20 at 20:45; Stop 01/04/20 at 22:44; Status DC Sodium Chloride 1,000 ml @ 1,000 mls/hr 1X ONCE IV Last administered on 01/03/20at 23:00; Start 01/04/20 at 21:30; Stop 01/04/20 at 22:29; Status DC Levofloxacin/ Dextrose 100 ml @ 100 mls/hr 1X ONCE IV Last administered on 01/05/20at 00:05; Start 01/04/20 at 23:00; Stop 01/04/20 at 23:59; Status DC Sodium Chloride 1,000 ml @ 1,000 mls/hr 1X ONCE IV ; Start 01/04/20 at 23:00; Stop 01/04/20 at 23:59; Status DC Meropenem 1 gm/ Sodium Chloride 100 ml @ 200 mls/hr Q8HRS IV ; Start 01/05/20 at 06:00; Status UNV Metronidazole 100 ml @ 100 mls/hr 1X ONCE IV Last administered on 01/05/20at 00:02; Start 01/04/20 at 23:45; Stop 01/05/20 at 00:44; Status DC Potassium Chloride (Klor-Con) 40 meq 1X ONCE PO ; Start 01/05/20 at 01:30; Stop 01/05/20 at 01:38; Status DC Ondansetron HCl (Zofran) 4 mg PRN Q8HRS PRN IV NAUSEA/VOMITING; Start 01/05/20 at 01:15; Stop 01/06/20 at 01:14; Status DC Morphine Sulfate (Morphine Sulfate) 2 mg PRN Q2HR PRN IV PAIN; Start 01/05/20 at 01:15; Stop 01/06/20 at 01:14; Status UNV Potassium Chloride/Water 100 ml @ 50 mls/hr 1X ONCE IV Last administered on 01/05/20at 01:45; Start 01/05/20 at 01:45; Stop 01/05/20 at 03:44; Status DC Potassium Chloride/Water 100 ml @ 50 mls/hr 1X ONCE IV Last administered on 01/05/20at 02:01; Start 01/05/20 at 04:00; Stop 01/05/20 at 05:59; Status DC Ceftriaxone Sodium (Rocephin) 1 gm Q24H IVP ; Start 01/06/20 at 06:00; Stop 01/05/20 at 06:42; Status DC Potassium Chloride 20 meq/ Dextrose/Sodium Chloride 1,010 ml @ 75 mls/hr [id number] IV Last administered on 01/05/20at 01:45; Start 01/05/20 at 01:45; Stop 01/05/20 at 02:14; Status DC Potassium Chloride/Dextrose/ Sod Cl 1,000 ml @ As Directed STK-MED ONCE IV ; Start 01/05/20 at 01:51; Stop 01/05/20 at 01:52; Status DC Ceftriaxone Sodium (Rocephin) 1 gm 1X ONCE IVP Last administered on 01/05/20at 02:27; Start 01/05/20 at 02:30; Stop 01/05/20 at 02:31; Status DC Potassium Chloride 20 meq/ Dextrose/Sodium Chloride 1,010 ml @ 75 mls/hr [id number] IV ; Start 01/05/20 at 09:00; Stop 01/05/20 at 14:59; Status DC Vancomycin HCl 1 gm/Sodium Chloride 250 ml @ 250 mls/hr Q24H IV ; Start 01/05/20 at 21:00; Stop 01/05/20 at 06:42; Status DC Vancomycin HCl (Vancomycin Trough Level) 1 each 1X ONCE MC ; Start 01/06/20 at 20:30; Stop 01/05/20 at 06:43; Status DC Ondansetron HCl (Zofran) 4 mg PRN Q6HRS PRN IV NAUSEA/VOMITING; Start 01/05/20 at 06:45; Stop 01/06/20 at 06:44; Status DC Ringer's Solution 1,000 ml @ 30 mls/hr Q24H IV ; Start 01/05/20 at 06:45; Stop 01/05/20 at 06:46; Status DC Lidocaine HCl (Xylocaine-Mpf 1% 2ml Vial) 2 ml 1X PRN PRN ID IV START; Start 01/05/20 at 06:45; Stop 01/06/20 at 06:44; Status DC Prochlorperazine Edisylate (Compazine) 5 mg PACU PRN PRN IV NAUSEA, MRX1; Start 01/05/20 at 06:45; Stop 01/06/20 at 06:44; Status DC Propofol 20 ml @ As Directed STK-MED ONCE IV ; Start 01/05/20 at 06:40; Stop 01/05/20 at 06:40; Status DC Lidocaine HCl (Lidocaine Pf 2% Vial) 5 ml STK-MED ONCE .ROUTE ; Start 01/05/20 at 06:40; Stop 01/05/20 at 06:40; Status DC Linezolid/Dextrose 300 ml @ 300 mls/hr Q12HR IV Last administered on 01/07/20at 09:24; Start 01/05/20 at 09:00 Daptomycin 420 mg/ Sodium Chloride 50 ml @ 100 mls/hr Q24H IV Last administered on 01/07/20at 06:25; Start 01/05/20 at 07:00; Stop 01/07/20 at 12:00 Meropenem 500 mg/ Sodium Chloride 50 ml @ 100 mls/hr Q6HRS IV Last administered on 01/07/20at 05:39; Start 01/05/20 at 07:00 Fentanyl Citrate (Fentanyl 2ml Vial) 100 mcg STK-MED ONCE .ROUTE ; Start 01/05/20 at 08:32; Stop 01/05/20 at 08:33; Status DC Ondansetron HCl (Zofran) 4 mg STK-MED ONCE .ROUTE ; Start 01/05/20 at 08:46; Stop 01/05/20 at 08:46; Status DC Dexamethasone Sodium Phosphate (Decadron) 4 mg STK-MED ONCE .ROUTE ; Start 01/05/20 at 08:46; Stop 01/05/20 at 08:46; Status DC Sevoflurane (Ultane) 30 ml STK-MED ONCE IH ; Start 01/05/20 at 08:46; Stop 01/05/20 at 08:46; Status DC Potassium Chloride/Dextrose/ Sod Cl 1,000 ml @ 75 mls/hr [id number] IV Last administered on 01/07/20at 06:26; Start 01/05/20 at 15:00 Acetaminophen/ Hydrocodone Bitart (Lortab 5/325) 1 tab PRN Q4HRS PRN PO MILD- MODERATE PAIN Last administered on 01/06/20at 08:10; Start 01/05/20 at 15:15 Acetaminophen/ Hydrocodone Bitart (Lortab 5/325) 2 tab PRN Q4HRS PRN PO SEVERE PAIN Last administered on 01/07/20at 05:39; Start 01/05/20 at 15:15 Diltiazem HCl 125 mg/Sodium Chloride 125 ml @ 5 mls/hr 1X ONCE IV Last administered on 01/05/20at 15:15; Start 01/05/20 at 15:15; Stop 01/06/20 at 16:14; Status DC Diltiazem HCl (Cardizem Iv Push) 10 mg 1X ONCE IVP Last administered on 01/05/20at 15:23; Start 01/05/20 at 15:15; Stop 01/05/20 at 15:17; Status DC Potassium Chloride (Klor-Con) 20 meq 1X ONCE PO Last administered on 01/05/20at 15:22; Start 01/05/20 at 15:15; Stop 01/05/20 at 15:19; Status DC Aspirin (Ecotrin) 81 mg [id number] PO Last administered on 01/07/20at 09:23; St art 01/06/20 at 08:00 Lactobacillus Rhamnosus (Culturelle) 1 cap BID PO Last administered on 01/07/20at 09:24; Start 01/06/20 at 09:00 Diltiazem HCl (Cardizem 24hr Cd) 240 mg DAILY PO Last administered on 01/07/20at 09:24; Start 01/06/20 at 11:00 Active Scripts Active Reported Garlic 1,000 Mg Capsule 1,000 Mg PO DAILY08 Flax Seed Oil (Flaxseed Oil) 1,000 Mg Capsule 1,000 Mg PO TID Fish Oil [place]-3 Softgel ([place]-3/Dha/Epa/Fish Oil) 1 Each Capsule.dr 1 Each PO BIDAC Centrum Silver Tablet (Multivits-Min/Fa/Lycopene/Lut) 1 Each Tablet 1 Each PO DAILY08 Calcium Citrate - Vit D3 Tab (Calcium Citrate/Vitamin D3) 1 Each Tablet 1 Each PO DAILY08 Magnesium (Magnesium Oxide) 400 Mg Capsule 400 Mg PO DAILY08 Latanoprost 2.5 Ml Drops 1 Drop OP HS Clopidogrel (Clopidogrel Bisulfate) 75 Mg Tablet 75 Mg PO DAILY08 Potassium Chloride 20 Meq Tablet.er 20 Meq PO TIDWMEALS Verapamil Hcl 120 Mg Tablet 240 Mg PO TIDWMEALS Levothyroxine Sodium 112 Mcg Tablet 112 Mcg PO DAILYAC ROS: Review of Systems Unable to obtain to confused Physical Exam: Vital Signs: Vital Signs Date Time Temp Pulse Resp B/P (MAP) Pulse Ox O2 Delivery O2 Flow Rate FiO2 01/07/20 09:24 64 144/65 01/07/20 08:00 Room Air 01/07/20 08:00 97.7 20 96 97.7 01/07/20 06:39 10.0 Physcial Exam: GEN: Weak and extremely confused HEENT: Normal cephalic, atraumatic, external auditory canals are patent EYES: Extraocular muscles are intact, pupil are equally round and reactive to light and accommodation MUSCULOSKELETAL: Well developed , well nourished, good range of motion ENDOCRINE: No thyromegaly was palpated LYMPHATICS: No cervical chain or axillary nodes were noted HEMATOPOIETIC: No bruising NECK: Supple, no JVD, no thyromegaly was noted LUNGS: Clear to auscultation in all lung evans without rhonchi or wheezing HEART: RRR, S!, S2 present. Peripheral pulses intact, no obvious murmurs noted ABDOMEN: Soft, nontender. Positive bowel sounds, no organomegaly, normal bowel sounds EXTREMITIES: Without clubbing, cyanosis, or edema. Pedal pulses intact. Negative Homans sign NEUROLOGIC: Weak and confused PSYCHIATRIC: Confused SKIN: No ulcerations or rashes, good skin turgor, no jaundice VASCULAR: Good capillary refill, neurovascular bundle appears to be intact Labs: Labs: Laboratory Tests Test 01/06/20 05:00 01/07/20 09:00 01/07/20 09:15 White Blood Count 18.8 x10^3/uL (4.0-11.0) 13.4 x10^3/uL (4.0-11.0) Red Blood Count 3.18 x10^6/uL (3.50-5.40) 3.66 x10^6/uL (3.50-5.40) Hemoglobin 10.5 g/dL (12.0-15.5) 12.0 g/dL (12.0-15.5) Hematocrit 31.0 % (36.0-47.0) 36.0 % (36.0-47.0) Mean Corpuscular Volume 98 fL (79-100) 98 fL (79-100) Mean Corpuscular Hemoglobin 33 pg (25-35) 33 pg (25-35) Mean Corpuscular Hemoglobin Concent 34 g/dL (31-37) 33 g/dL (31-37) Red Cell Distribution Width 13.9 % (11.5-14.5) 14.3 % (11.5-14.5) Platelet Count 127 x10^3/uL (140-400) 167 x10^3/uL (140-400) Neutrophils (%) (Auto) 91 % (31-73) 84 % (31-73) Lymphocytes (%) (Auto) 2 % (24-48) 5 % (24-48) Monocytes (%) (Auto) 7 % (0-9) 9 % (0-9) Eosinophils (%) (Auto) 0 % (0-3) 1 % (0-3) Basophils (%) (Auto) 0 % (0-3) 0 % (0-3) Neutrophils # (Auto) 17.0 x10^3/uL (1.8-7.7) 11.3 x10^3/uL (1.8-7.7) Lymphocytes # (Auto) 0.4 x10^3/uL (1.0-4.8) 0.7 x10^3/uL (1.0-4.8) Monocytes # (Auto) 1.4 x10^3/uL (0.0-1.1) 1.2 x10^3/uL (0.0-1.1) Eosinophils # (Auto) 0.0 x10^3/uL (0.0-0.7) 0.1 x10^3/uL (0.0-0.7) Basophils # (Auto) 0.0 x10^3/uL (0.0-0.2) 0.1 x10^3/uL (0.0-0.2) Erythrocyte Sedimentation Rate 80 (0-25) Sodium Level 138 mmol/L (136-145) 139 mmol/L (136-145) Potassium Level 4.0 mmol/L (3.5-5.1) 4.2 mmol/L (3.5-5.1) Chloride Level 106 mmol/L (98-107) 106 mmol/L (98-107) Carbon Dioxide Level 22 mmol/L (21-32) 24 mmol/L (21-32) Anion Gap 10 (6-14) 9 (6-14) Blood Urea Nitrogen 19 mg/dL (7-20) 19 mg/dL (7-20) Creatinine 0.9 mg/dL (0.6-1.0) 0.9 mg/dL (0.6-1.0) Estimated GFR (Cockcroft-Gault) 59.1 59.1 BUN/Creatinine Ratio 21 (6-20) Glucose Level 128 mg/dL (70-99) 100 mg/dL (70-99) Hemoglobin A1c 5.3 % (4.8-5.6) Calcium Level 8.0 mg/dL (8.5-10.1) 8.7 mg/dL (8.5-10.1) Total Bilirubin 0.4 mg/dL (0.2-1.0) Aspartate Amino Transf (AST/SGOT) 19 U/L (15-37) Alanine Aminotransferase (ALT/SGPT) 19 U/L (14-59) Alkaline Phosphatase 48 U/L (46-116) Total Protein 5.0 g/dL (6.4-8.2) Albumin 1.6 g/dL (3.4-5.0) Albumin/Globulin Ratio 0.5 (1.0-1.7) Laboratory Tests Test 01/07/20 09:00 01/07/20 09:15 White Blood Count 13.4 x10^3/uL (4.0-11.0) Red Blood Count 3.66 x10^6/uL (3.50-5.40) Hemoglobin 12.0 g/dL (12.0-15.5) Hematocrit 36.0 % (36.0-47.0) Mean Corpuscular Volume 98 fL (79-100) Mean Corpuscular Hemoglobin 33 pg (25-35) Mean Corpuscular Hemoglobin Concent 33 g/dL (31-37) Red Cell Distribution Width 14.3 % (11.5-14.5) Platelet Count 167 x10^3/uL (140-400) Neutrophils (%) (Auto) 84 % (31-73) Lymphocytes (%) (Auto) 5 % (24-48) Monocytes (%) (Auto) 9 % (0-9) Eosinophils (%) (Auto) 1 % (0-3) Basophils (%) (Auto) 0 % (0-3) Neutrophils # (Auto) 11.3 x10^3/uL (1.8-7.7) Lymphocytes # (Auto) 0.7 x10^3/uL (1.0-4.8) Monocytes # (Auto) 1.2 x10^3/uL (0.0-1.1) Eosinophils # (Auto) 0.1 x10^3/uL (0.0-0.7) Basophils # (Auto) 0.1 x10^3/uL (0.0-0.2) Sodium Level 139 mmol/L (136-145) Potassium Level 4.2 mmol/L (3.5-5.1) Chloride Level 106 mmol/L (98-107) Carbon Dioxide Level 24 mmol/L (21-32) Anion Gap 9 (6-14) Blood Urea Nitrogen 19 mg/dL (7-20) Creatinine 0.9 mg/dL (0.6-1.0) Estimated GFR (Cockcroft-Gault) 59.1 Glucose Level 100 mg/dL (70-99) Calcium Level 8.7 mg/dL (8.5-10.1) Images: Images AP chest. HISTORY: Short of air AP view was taken of the chest. Lungs are clear. There is no pneumothorax or pleural effusion. There are no infiltrates. Heart is normal in size. IMPRESSION: 1. No acute chest disease. Assessment/Plan Assessment/Plan Sepsis Bandemia RUE Cellulitis New Afib 01/05 PCN allergy - uncertain if ever had Amox Sinusitis GNR UTI 01/04 - POA MELA - better Plan ICU monitoring IV antibiotics Trend labs Full code DVT prophylaxis IV fluids Negative chronotropic agents FRANKIE SANCHEZ III DO Jan 07, 2020 11:21
--- NOTE | 2020-01-07 13:09 | PDOC ---
PROGRESS NOTES Subjective Subjective Problems overnight: Objective Vital Signs Vital Signs Date Time Temp Pulse Resp B/P (MAP) Pulse Ox O2 Delivery O2 Flow Rate FiO2 01/07/20 09:24 64 144/65 01/07/20 08:00 Room Air 01/07/20 08:00 97.7 20 96 97.7 01/07/20 06:39 10.0 Labs Laboratory Tests Test 01/06/20 05:00 01/07/20 09:00 01/07/20 09:15 White Blood Count 18.8 x10^3/uL (4.0-11.0) 13.4 x10^3/uL (4.0-11.0) Red Blood Count 3.18 x10^6/uL (3.50-5.40) 3.66 x10^6/uL (3.50-5.40) Hemoglobin 10.5 g/dL (12.0-15.5) 12.0 g/dL (12.0-15.5) Hematocrit 31.0 % (36.0-47.0) 36.0 % (36.0-47.0) Mean Corpuscular Volume 98 fL (79-100) 98 fL (79-100) Mean Corpuscular Hemoglobin 33 pg (25-35) 33 pg (25-35) Mean Corpuscular Hemoglobin Concent 34 g/dL (31-37) 33 g/dL (31-37) Red Cell Distribution Width 13.9 % (11.5-14.5) 14.3 % (11.5-14.5) Platelet Count 127 x10^3/uL (140-400) 167 x10^3/uL (140-400) Neutrophils (%) (Auto) 91 % (31-73) 84 % (31-73) Lymphocytes (%) (Auto) 2 % (24-48) 5 % (24-48) Monocytes (%) (Auto) 7 % (0-9) 9 % (0-9) Eosinophils (%) (Auto) 0 % (0-3) 1 % (0-3) Basophils (%) (Auto) 0 % (0-3) 0 % (0-3) Neutrophils # (Auto) 17.0 x10^3/uL (1.8-7.7) 11.3 x10^3/uL (1.8-7.7) Lymphocytes # (Auto) 0.4 x10^3/uL (1.0-4.8) 0.7 x10^3/uL (1.0-4.8) Monocytes # (Auto) 1.4 x10^3/uL (0.0-1.1) 1.2 x10^3/uL (0.0-1.1) Eosinophils # (Auto) 0.0 x10^3/uL (0.0-0.7) 0.1 x10^3/uL (0.0-0.7) Basophils # (Auto) 0.0 x10^3/uL (0.0-0.2) 0.1 x10^3/uL (0.0-0.2) Erythrocyte Sedimentation Rate 80 (0-25) Sodium Level 138 mmol/L (136-145) 139 mmol/L (136-145) Potassium Level 4.0 mmol/L (3.5-5.1) 4.2 mmol/L (3.5-5.1) Chloride Level 106 mmol/L (98-107) 106 mmol/L (98-107) Carbon Dioxide Level 22 mmol/L (21-32) 24 mmol/L (21-32) Anion Gap 10 (6-14) 9 (6-14) Blood Urea Nitrogen 19 mg/dL (7-20) 19 mg/dL (7-20) Creatinine 0.9 mg/dL (0.6-1.0) 0.9 mg/dL (0.6-1.0) Estimated GFR (Cockcroft-Gault) 59.1 59.1 BUN/Creatinine Ratio 21 (6-20) Glucose Level 128 mg/dL (70-99) 100 mg/dL (70-99) Hemoglobin A1c 5.3 % (4.8-5.6) Calcium Level 8.0 mg/dL (8.5-10.1) 8.7 mg/dL (8.5-10.1) Total Bilirubin 0.4 mg/dL (0.2-1.0) Aspartate Amino Transf (AST/SGOT) 19 U/L (15-37) Alanine Aminotransferase (ALT/SGPT) 19 U/L (14-59) Alkaline Phosphatase 48 U/L (46-116) Total Protein 5.0 g/dL (6.4-8.2) Albumin 1.6 g/dL (3.4-5.0) Albumin/Globulin Ratio 0.5 (1.0-1.7) Laboratory Tests Test 01/07/20 09:00 01/07/20 09:15 White Blood Count 13.4 x10^3/uL (4.0-11.0) Red Blood Count 3.66 x10^6/uL (3.50-5.40) Hemoglobin 12.0 g/dL (12.0-15.5) Hematocrit 36.0 % (36.0-47.0) Mean Corpuscular Volume 98 fL (79-100) Mean Corpuscular Hemoglobin 33 pg (25-35) Mean Corpuscular Hemoglobin Concent 33 g/dL (31-37) Red Cell Distribution Width 14.3 % (11.5-14.5) Platelet Count 167 x10^3/uL (140-400) Neutrophils (%) (Auto) 84 % (31-73) Lymphocytes (%) (Auto) 5 % (24-48) Monocytes (%) (Auto) 9 % (0-9) Eosinophils (%) (Auto) 1 % (0-3) Basophils (%) (Auto) 0 % (0-3) Neutrophils # (Auto) 11.3 x10^3/uL (1.8-7.7) Lymphocytes # (Auto) 0.7 x10^3/uL (1.0-4.8) Monocytes # (Auto) 1.2 x10^3/uL (0.0-1.1) Eosinophils # (Auto) 0.1 x10^3/uL (0.0-0.7) Basophils # (Auto) 0.1 x10^3/uL (0.0-0.2) Sodium Level 139 mmol/L (136-145) Potassium Level 4.2 mmol/L (3.5-5.1) Chloride Level 106 mmol/L (98-107) Carbon Dioxide Level 24 mmol/L (21-32) Anion Gap 9 (6-14) Blood Urea Nitrogen 19 mg/dL (7-20) Creatinine 0.9 mg/dL (0.6-1.0) Estimated GFR (Cockcroft-Gault) 59.1 Glucose Level 100 mg/dL (70-99) Calcium Level 8.7 mg/dL (8.5-10.1) Imaging [facility] [address] [place] [address] IMAGING REPORT Signed PATIENT: BECKIE HUFF ACCOUNT: [id number] : 1930 LOCATION: [address] [place] [address] AGE: 89 SEX: F EXAM STATUS: ADM IN ORD. PHYSICIAN: FRANKIE SANCHEZ III, DO REASON: Left hip pain s/p fall 116 PROCEDURE: HIP BILATERAL WITH PELVIS AP view the pelvis and two-view study of both hips Clinical indications: Left hip pain status post fall. Left hip: No acute fracture of the proximal left femur is seen. No dislocation is seen. There is a fracture fragment seen just inferior to the left femoral neck or inferior hip joint space. This may represent a fracture fragment from the adjacent ischial bone. Right hip: No acute fracture or dislocation or lytic process is seen. No diastases of the symphysis pubis or either SI joint is seen. IMPRESSION: Possible avulsion fracture from the lateral aspect of the left ischial bone. Recommend dedicated left hip CT study for further evaluation. Electronically signed by: Devorah Diego MD (01/06/2020 2:59 PM) [facility] DICTATED and SIGNED BY: DEVORAH DIEGO MD DATE: 01/06/20 1459 Assessment Assessment POD# BRIDGER DE LA CRUZ MD Jan 07, 2020 13:09
--- NOTE | 2020-01-07 13:12 | NUR ---
SS following up with discharge planning. PT/OT ordered. SS met with pt and friend in room to discuss discharge planning. Pt agreeable to nursing home unit at discharge. Pt and pt's friend requesting [facility], ; fax [phone]. SS will await PT/OT evaluations and will proceed accordingly with referral.
--- NOTE | 2020-01-07 15:48 | PDOC2 ---
CONSULT Date of Consult Date of Consult DATE: 01/07/20 TIME: 15:20 Reason for Consult Reason for Consult: LEFT hip pain ongoing, did sustain fall as found on floor at home this week as reported by patient or her visiting friend. Referring Physician Referring Physician: Dr Frankie May III Identification/Chief Complaint Chief Complaint LEFT hip pain intermittent Problems: (1) Chronic left hip pain (2) Right arm cellulitis Source Source: Caregiver (Restorationist friend), Chart review, Patient History of Present Illness Reason for Visit: Hospitalized after patient was found on her floor at home with a right forearm and arm that were enlarged, infected, undergoing I&D Right forearm by Dr Pop yesterday. Subsequent complaints of her left hip pain led to new consultation today. Past Medical History Cardiovascular: HTN, Hyperlipidemia CENTRAL NERVOUS SYSTEM: CVA, Vertigo (meniere) GI: GERD Heme/Onc: Cancer (breast) Musculoskeletal: Weakness (lower extremities per friend.), Other (RA lymphedema) Rheumatologic: No pertinent hx ENT: Other ([place]; glaucoma) Endocrine: Hypothyroidism Dermatology: Other (RA cellulitis) Past Surgical History Past Surgical History: Appendectomy, Cholecystectomy, Cataract Removal, Total knee replacement (right), Hysterectomy, Other (back surgery, currently on IV antibiotics recovering from Rgiht forearm infection, surgery.) Social History No ALCOHOL: none Drugs: None Lives: with Family Current Problem List Problem List Problems Medical Problems: (1) Encephalopathy acute Status: Acute (2) Hypokalemia Status: Acute (3) Urinary tract infection Status: Acute Current Medications Current Medications Current Medications Sodium Chloride 1,000 ml @ 1,000 mls/hr 1X ONCE IV Last administered on 01/04/20at 20:58; Start 01/04/20 at 19:30; Stop 01/04/20 at 20:29; Status DC Vancomycin HCl (Vanco Per Pharmacy) 1 each PRN DAILY PRN MC SEE COMMENTS Last administered on 01/05/20at 02:51; Start 01/04/20 at 20:45; Stop 01/05/20 at 06:43; Status DC Vancomycin HCl 1.5 gm/Sodium Chloride 500 ml @ 250 mls/hr 1X ONCE IV Last administered on 01/04/20at 20:58; Start 01/04/20 at 20:45; Stop 01/04/20 at 22:4 4; Status DC Sodium Chloride 1,000 ml @ 1,000 mls/hr 1X ONCE IV Last administered on 01/03/20at 23:00; Start 01/04/20 at 21:30; Stop 01/04/20 at 22:29; Status DC Levofloxacin/ Dextrose 100 ml @ 100 mls/hr 1X ONCE IV Last administered on 01/05/20at 00:05; Start 01/04/20 at 23:00; Stop 01/04/20 at 23:59; Status DC Sodium Chloride 1,000 ml @ 1,000 mls/hr 1X ONCE IV ; Start 01/04/20 at 23:00; Stop 01/04/20 at 23:59; Status DC Meropenem 1 gm/ Sodium Chloride 100 ml @ 200 mls/hr Q8HRS IV ; Start 01/05/20 at 06:00; Status UNV Metronidazole 100 ml @ 100 mls/hr 1X ONCE IV Last administered on 01/05/20at 00:02; Start 01/04/20 at 23:45; Stop 01/05/20 at 00:44; Status DC Potassium Chloride (Klor-Con) 40 meq 1X ONCE PO ; Start 01/05/20 at 01:30; Stop 01/05/20 at 01:38; Status DC Ondansetron HCl (Zofran) 4 mg PRN Q8HRS PRN IV NAUSEA/VOMITING; Start 01/05/20 at 01:15; Stop 01/06/20 at 01:14; Status DC Morphine Sulfate (Morphine Sulfate) 2 mg PRN Q2HR PRN IV PAIN; Start 01/05/20 at 01:15; Stop 01/06/20 at 01:14; Status UNV Potassium Chloride/Water 100 ml @ 50 mls/hr 1X ONCE IV Last administered on 01/05/20at 01:45; Start 01/05/20 at 01:45; Stop 01/05/20 at 03:44; Status DC Potassium Chloride/Water 100 ml @ 50 mls/hr 1X ONCE IV Last administered on at 02:01; Start 01/05/20 at 04:00; Stop 01/05/20 at 05:59; Status DC Ceftriaxone Sodium (Rocephin) 1 gm Q24H IVP ; Start 01/06/20 at 06:00; Stop 01/05/20 at 06:42; Status DC Potassium Chloride 20 meq/ Dextrose/Sodium Chloride 1,010 ml @ 75 mls/hr [id number] IV Last administered on 01/05/20at 01:45; Start 01/05/20 at 01:45; Stop 01/05/20 at 02:14; Status DC Potassium Chloride/Dextrose/ Sod Cl 1,000 ml @ As Directed STK-MED ONCE IV ; Start 01/05/20 at 01:51; Stop 01/05/20 at 01:52; Status DC Ceftriaxone Sodium (Rocephin) 1 gm 1X ONCE IVP Last administered on 01/05/20at 02:27; Start 01/05/20 at 02:30; Stop 01/05/20 at 02:31; Status DC Potassium Chloride 20 meq/ Dextrose/Sodium Chloride 1,010 ml @ 75 mls/hr [id number] IV ; Start 01/05/20 at 09:00; Stop 01/05/20 at 14:59; Status DC Vancomycin HCl 1 gm/Sodium Chloride 250 ml @ 250 mls/hr Q24H IV ; Start 01/05/20 at 21:00; Stop 01/05/20 at 06:42; Status DC Vancomycin HCl (Vancomycin Trough Level) 1 each 1X ONCE MC ; Start 01/06/20 at 20:30; Stop 01/05/20 at 06:43; Status DC Ondansetron HCl (Zofran) 4 mg PRN Q6HRS PRN IV NAUSEA/VOMITING; Start 01/05/20 at 06:45; Stop 01/06/20 at 06:44; Status DC Ringer's Solution 1,000 ml @ 30 mls/hr Q24H IV ; Start 01/05/20 at 06:45; Stop 01/05/20 at 06:46; Status DC Lidocaine HCl (Xylocaine-Mpf 1% 2ml Vial) 2 ml 1X PRN PRN ID IV START; Start 01/05/20 at 06:45; Stop 01/06/20 at 06:44; Status DC Prochlorperazine Edisylate (Compazine) 5 mg PACU PRN PRN IV NAUSEA, MRX1; Start 01/05/20 at 06:45; Stop 01/06/20 at 06:44; Status DC Propofol 20 ml @ As Directed STK-MED ONCE IV ; Start 01/05/20 at 06:40; Stop 01/05/20 at 06:40; Status DC Lidocaine HCl (Lidocaine Pf 2% Vial) 5 ml STK-MED ONCE .ROUTE ; Start 01/05/20 at 06:40; Stop 01/05/20 at 06:40; Status DC Linezolid/Dextrose 300 ml @ 300 mls/hr Q12HR IV Last administered on 01/07/20at 09:24; Start 01/05/20 at 09:00 Daptomycin 420 mg/ Sodium Chloride 50 ml @ 100 mls/hr Q24H IV Last administered on 01/07/20at 06:25; Start 01/05/20 at 07:00; Stop 01/07/20 at 12:00; Status DC Meropenem 500 mg/ Sodium Chloride 50 ml @ 100 mls/hr Q6HRS IV Last administered on 01/07/20at 12:05; Start 01/05/20 at 07:00 Fentanyl Citrate (Fentanyl 2ml Vial) 100 mcg STK-MED ONCE .ROUTE ; Start 01/05/20 at 08:32; Stop 01/05/20 at 08:33; Status DC Ondansetron HCl (Zofran) 4 mg STK-MED ONCE .ROUTE ; Start 01/05/20 at 08:46; Stop 01/05/20 at 08:46; Status DC Dexamethasone Sodium Phosphate (Decadron) 4 mg STK-MED ONCE .ROUTE ; Start 01/05/20 at 08:46; Stop 01/05/20 at 08:46; Status DC Sevoflurane (Ultane) 30 ml STK-MED ONCE IH ; Start 01/05/20 at 08:46; Stop 01/05/20 at 08:46; Status DC Potassium Chloride/Dextrose/ Sod Cl 1,000 ml @ 75 mls/hr [id number] IV Last administered on 01/07/20at 06:26; Start 01/05/20 at 15:00 Acetaminophen/ Hydrocodone Bitart (Lortab 5/325) 1 tab PRN Q4HRS PRN PO MILD- MODERATE PAIN Last administered on 01/06/20at 08:10; Start 01/05/20 at 15:15 Acetaminophen/ Hydrocodone Bitart (Lortab 5/325) 2 tab PRN Q4HRS PRN PO SEVERE PAIN Last administered on 01/07/20at 05:39; Start 01/05/20 at 15:15 Diltiazem HCl 125 mg/Sodium Chloride 125 ml @ 5 mls/hr 1X ONCE IV Last administered on 01/05/20at 15:15; Start 01/05/20 at 15:15; Stop 01/06/20 at 16:14; Status DC Diltiazem HCl (Cardizem Iv Push) 10 mg 1X ONCE IVP Last administered on at 15:23; Start 01/05/20 at 15:15; Stop 01/05/20 at 15:17; Status DC Potassium Chloride (Klor-Con) 20 meq 1X ONCE PO Last administered on 01/05/20at 15:22; Start 01/05/20 at 15:15; Stop 01/05/20 at 15:19; Status DC Aspirin (Ecotrin) 81 mg [id number] PO Last administered on 01/07/20at 09:23; Start 01/06/20 at 08:00 Lactobacillus Rhamnosus (Culturelle) 1 cap BID PO Last administered on 01/07/20at 09:24; Start 01/06/20 at 09:00 Diltiazem HCl (Cardizem 24hr Cd) 240 mg DAILY PO Last administered on 01/07/20 09:24; Start 01/06/20 at 11:00 Active Scripts Active Reported Garlic 1,000 Mg Capsule 1,000 Mg PO DAILY08 Flax Seed Oil (Flaxseed Oil) 1,000 Mg Capsule 1,000 Mg PO TID Fish Oil [place]-3 Softgel ([place]-3/Dha/Epa/Fish Oil) 1 Each Capsule. 1 Each PO BIDAC Centrum Silver Tablet (Multivits-Min/Fa/Lycopene/Lut) 1 Each Tablet 1 Each PO DAILY08 Calcium Citrate - Vit D3 Tab (Calcium Citrate/Vitamin D3) 1 Each Tablet 1 Each PO DAILY08 Magnesium (Magnesium Oxide) 400 Mg Capsule 400 Mg PO DAILY08 Latanoprost 2.5 Ml Drops 1 Drop OP HS Clopidogrel (Clopidogrel Bisulfate) 75 Mg Tablet 75 Mg PO DAILY08 Potassium Chloride 20 Meq Tablet.er 20 Meq PO TIDWMEALS Verapamil Hcl 120 Mg Tablet 240 Mg PO TIDWMEALS Levothyroxine Sodium 112 Mcg Tablet 112 Mcg PO DAILYAC Allergies Allergies: Coded Allergies: Penicillins (Verified Allergy, Intermediate, 9/9/15) etodolac (Verified Allergy, Intermediate, 08/02/15) hydrocodone (Verified Allergy, Intermediate, 08/02/15) meperidine (Verified Allergy, Intermediate, 08/02/15) morphine (Verified Allergy, Intermediate, 08/02/15) oxycodone (Verified Allergy, Intermediate, 08/02/15) pentazocine (Verified Allergy, Intermediate, 08/02/15) ROS PSYCHOLOGICAL ROS: YES: Concentration difficultie, Disorientation HEENT: YES: Hearing change (Hearing loss known) Musculoskeletal: Yes Joint Pain (Left hip), Yes Joint Stiffness (Left hip), Yes Muscular Weakness (Lower extremities) Skin: Yes Other Physical Exam General: Cooperative, No acute distress HEENT: Atraumatic, EOMI, Mucous membr. moist/pink Extremities: No cyanosis, Normal pulses Skin: Other (Residual erythema RIGHT upper extremity improved greatly since surgical I&D, debridement, IV antibiotics.) Neuro: Normal speech, Sensation intact, Other (Lower extremity strength cannot perform SLRT or hip flexion without assistance today 3+/5 by manual muscle strength testing. ) Psych/Mental Status: Mental status NL, Mood NL, Other (Confusion present. Slow cognitive response.) MUSCULOSKELETAL: Abnormal exam of left (Hip with no pain over the pubic ramii, ileum, tender over greater trochanter. Pain worst with end range ER at 35 degrees. Hip flexion tolerated to 90 degrees. Knee flexion/extension is 0-130 deg with patellafemoral crepitus. Tenderness in bilateral adductor muscles of the hips. Neg SLRT.), Abnormal active ROM of (Hips secondary to pain. Slight PROM limitation secondary to suspected DJD also seen on x-ray inferior acetabulum.), Abn muscle strength of (Bilateral hips, lower extremities generally 4/5 by MMT. Overall SLRT 3+/5. ), Other Vitals VITALS Vital Signs Date Time Temp Pulse Resp B/P (MAP) Pulse Ox O2 Delivery O2 Flow Rate FiO2 01/07/20 12:00 97.9 68 20 133/56 (81) 96 Room Air 97.9 01/07/20 06:39 10.0 Labs Labs Laboratory Tests Test 01/06/20 05:00 01/07/20 09:00 01/07/20 09:15 White Blood Count 18.8 x10^3/uL (4.0-11.0) 13.4 x10^3/uL (4.0-11.0) Red Blood Count 3.18 x10^6/uL (3.50-5.40) 3.66 x10^6/uL (3.50-5.40) Hemoglobin 10.5 g/dL (12.0-15.5) 12.0 g/dL (12.0-15.5) Hematocrit 31.0 % (36.0-47.0) 36.0 % (36.0-47.0) Mean Corpuscular Volume 98 fL (79-100) 98 fL (79-100) Mean Corpuscular Hemoglobin 33 pg (25-35) 33 pg (25-35) Mean Corpuscular Hemoglobin Concent 34 g/dL (31-37) 33 g/dL (31-37) Red Cell Distribution Width 13.9 % (11.5-14.5) 14.3 % (11.5-14.5) Platelet Count 127 x10^3/uL (140-400) 167 x10^3/uL (140-400) Neutrophils (%) (Auto) 91 % (31-73) 84 % (31-73) Lymphocytes (%) (Auto) 2 % (24-48) 5 % (24-48) Monocytes (%) (Auto) 7 % (0-9) 9 % (0-9) Eosinophils (%) (Auto) 0 % (0-3) 1 % (0-3) Basophils (%) (Auto) 0 % (0-3) 0 % (0-3) Neutrophils # (Auto) 17.0 x10^3/uL (1.8-7.7) 11.3 x10^3/uL (1.8-7.7) Lymphocytes # (Auto) 0.4 x10^3/uL (1.0-4.8) 0.7 x10^3/uL (1.0-4.8) Monocytes # (Auto) 1.4 x10^3/uL (0.0-1.1) 1.2 x10^3/uL (0.0-1.1) Eosinophils # (Auto) 0.0 x10^3/uL (0.0-0.7) 0.1 x10^3/uL (0.0-0.7) Basophils # (Auto) 0.0 x10^3/uL (0.0-0.2) 0.1 x10^3/uL (0.0-0.2) Erythrocyte Sedimentation Rate 80 (0-25) Sodium Level 138 mmol/L (136-145) 139 mmol/L (136-145) Potassium Level 4.0 mmol/L (3.5-5.1) 4.2 mmol/L (3.5-5.1) Chloride Level 106 mmol/L (98-107) 106 mmol/L (98-107) Carbon Dioxide Level 22 mmol/L (21-32) 24 mmol/L (21-32) Anion Gap 10 (6-14) 9 (6-14) Blood Urea Nitrogen 19 mg/dL (7-20) 19 mg/dL (7-20) Creatinine 0.9 mg/dL (0.6-1.0) 0.9 mg/dL (0.6-1.0) Estimated GFR (Cockcroft-Gault) 59.1 59.1 BUN/Creatinine Ratio 21 (6-20) Glucose Level 128 mg/dL (70-99) 100 mg/dL (70-99) Hemoglobin A1c 5.3 % (4.8-5.6) Calcium Level 8.0 mg/dL (8.5-10.1) 8.7 mg/dL (8.5-10.1) Total Bilirubin 0.4 mg/dL (0.2-1.0) Aspartate Amino Transf (AST/SGOT) 19 U/L (15-37) Alanine Aminotransferase (ALT/SGPT) 19 U/L (14-59) Alkaline Phosphatase 48 U/L (46-116) Total Protein 5.0 g/dL (6.4-8.2) Albumin 1.6 g/dL (3.4-5.0) Albumin/Globulin Ratio 0.5 (1.0-1.7) Laboratory Tests Test 01/07/20 09:00 01/07/20 09:15 White Blood Count 13.4 x10^3/uL (4.0-11.0) Red Blood Count 3.66 x10^6/uL (3.50-5.40) Hemoglobin 12.0 g/dL (12.0-15.5) Hematocrit 36.0 % (36.0-47.0) Mean Corpuscular Volume 98 fL (79-100) Mean Corpuscular Hemoglobin 33 pg (25-35) Mean Corpuscular Hemoglobin Concent 33 g/dL (31-37) Red Cell Distribution Width 14.3 % (11.5-14.5) Platelet Count 167 x10^3/uL (140-400) Neutrophils (%) (Auto) 84 % (31-73) Lymphocytes (%) (Auto) 5 % (24-48) Monocytes (%) (Auto) 9 % (0-9) Eosinophils (%) (Auto) 1 % (0-3) Basophils (%) (Auto) 0 % (0-3) Neutrophils # (Auto) 11.3 x10^3/uL (1.8-7.7) Lymphocytes # (Auto) 0.7 x10^3/uL (1.0-4.8) Monocytes # (Auto) 1.2 x10^3/uL (0.0-1.1) Eosinophils # (Auto) 0.1 x10^3/uL (0.0-0.7) Basophils # (Auto) 0.1 x10^3/uL (0.0-0.2) Sodium Level 139 mmol/L (136-145) Potassium Level 4.2 mmol/L (3.5-5.1) Chloride Level 106 mmol/L (98-107) Carbon Dioxide Level 24 mmol/L (21-32) Anion Gap 9 (6-14) Blood Urea Nitrogen 19 mg/dL (7-20) Creatinine 0.9 mg/dL (0.6-1.0) Estimated GFR (Cockcroft-Gault) 59.1 Glucose Level 100 mg/dL (70-99) Calcium Level 8.7 mg/dL (8.5-10.1) Images Images [facility] [address] [place] [address] IMAGING REPORT Signed PATIENT: BECKIE HUFF ACCOUNT: [id number] : 1930 LOCATION: [facility] ICU AGE: 89 SEX: F EXAM STATUS: ADM IN ORD. PHYSICIAN: FRANKIE MAY III, DO REASON: Left hip pain s/p fall 116 PROCEDURE: HIP BILATERAL WITH PELVIS AP view the pelvis and two-view study of both hips Clinical indications: Left hip pain status post fall. Left hip: No acute fracture of the proximal left femur is seen. No dislocation is seen. There is a fracture fragment seen just inferior to the left femoral neck or inferior hip joint space. This may represent a fracture fragment from the adjacent ischial bone. Right hip: No acute fracture or dislocation or lytic process is seen. No diastases of the symphysis pubis or either SI joint is seen. IMPRESSION: Possible avulsion fracture from the lateral aspect of the left ischial bone. Recommend dedicated left hip CT study for further evaluation. Electronically signed by: Devorah Diego MD (01/06/2020 2:59 PM) [facility] DICTATED and SIGNED BY: DEVORAH DIEGO MD DATE: 01/06/20 1459 Assessment/Plan Assessment/Plan * CT left hip/lower extremity to assess for occult fracture per radiologist. * Continue IV antibiotics for patients forearm infection trending well based on demarcation of her initial infection borders and exam * Continue daily dressing changes and exam. Please report any acute changes to Orthopedics. * Pending CT lower extremity results will anticipate PT for hips, lower extremity strengthening. OK PICKETT Jr. PAC Jan 07, 2020 15:48
[2020-01-08] VITALS (7 sets, daily range): BP systolic 127–192; BP diastolic 65–94
[2020-01-08] MEDS: HYDROcodone/APAP 5/325MG 1 TAB TABLET PO PRN ×4 (00:36→21:37)
[2020-01-08] MEDS: MEROPENEM 500 MG in IV NORMAL SALINE 50ML 50 ML IV SCH ×3 (05:42→17:37)
[2020-01-08] MEDS: ASPIRIN ENTERIC COATED 81 MG TABLET.DR. PO SCH (08:53)
[2020-01-08] MEDS: LACTOBACILLUS RHAMNOSUS GG 1 CAPSULE. PO SCH ×2 (08:53→21:35)
[2020-01-08] MEDS: POTASSIUM CL 20MEQ D5-0.45NACL 1,000 ML IV SCH (10:11)
[2020-01-08] MEDS: LEVOTHYROXINE 112 MCG TABLET PO SCH (10:12)
[2020-01-08] MEDS: LOSARTAN POTASSIUM 50 MG TABLET. PO SCH (10:12)
[2020-01-08] MEDS: hydrALAZINE 20 MG/ML VIAL. IVP PRN (10:12)
[2020-01-08] MEDS ORDERED: ALTEPLASE 1MG SYRINGE. INT CAT ONE (11:30)
--- NOTE | 2020-01-08 11:34 | PDOC ---
Infectious Disease Note Subjective Subjective Didn't sleep last night Periods of confusion and hallucinations; Now resting quietly after dose of Ativan. Daughter didn't wish for me to wake her No fevers last 24 hours BM x 3 ROS ROS unobtainable Vital Sign Vital Signs Vital Signs Date Time Temp Pulse Resp B/P (MAP) Pulse Ox O2 Delivery O2 Flow Rate FiO2 01/08/20 10:17 97.6 77 18 176/66 (102) 97 Room Air 97.6 Physical Exam PHYSICAL EXAM GENERAL: Resting quietly, appears comfortable HEENT: Oral cavity, pharynx is dry LUNGS: Clear, nonlabored HEART: S1, S2. No gross murmur. ABDOMEN: Soft. : Lopez in place, 01/05 EXTREMITIES: Right upper extremity is heavily bandaged SKIN: No signs of rash NEUROLOGIC: Sleeping LUE-PICC and PIV Labs Micro Right arm ANAEROBIC RES 1 PENDING AEROBIC CULT Preliminary Preliminary report AEROBIC RES 1 Preliminary Comment Beta hemolytic Streptococcus, group A URINE CULTURE RES 1 Preliminary Gram negative rods Comment Pseudomonas aeruginosa Greater than 100,000 colony forming units per mL Objective Assessment Cellulitis with deep abscess of RUE s/p I and D 01/05 group A strep so far Sinusitis PSAE UTI 01/04 - POA Leukocytosis - improving PCN allergy - uncertain if ever had Amox Possible Sepsis - POA 01/04 - better Bandemia - s/p Dexamethasone 01/05 New Afib 01/05 MELA - better Plan Plan of Care Continue Zyvox and Merrem Probiotics f/u cultures Wound care per Ortho D/w daughter at bedside D/w nursing Patient seen and examined. Chart reviewed in detail. Case discussed with ASSISTANT DEAN, I agree with above plan. RONAK PIPER APRN Jan 08, 2020 11:34 BOB HOPSON MD Jan 08, 2020 22:36
--- NOTE | 2020-01-08 13:03 | PDOC ---
[employer] PROGRESS NOTE Chief Complaint Chief Complaint Metabolic encephalopathy R arm cellulitis UTI Potential sepsis Hypokalemia Possible avulsion fracture History of Present Illness History of Present Illness 01/06/2020 - discussed pt with RN - reviewed chart - discussed pt progression and plan with daughter who was present in room - rate controlled cardio monitoring - no acute events overnight - discussed imaging of pelvis with pt and daughter - discussed pt with RN - pt has become more confused and disoriented over night. - reviewed chart - discussed pt progression and plan with daughter who was present in room. daughter was concerned with mental status of pt. we discussed metabolic encephalopathy\\ - d/c cardizem drip - rate controlled cardio monitoring - no acute events overnight 01/08/2020 -Patient seen and examined alonside her daughter. -Chart reviewed and care discussed with nursing staff. -Pt appears in distress and panic. She is having hallucinations and increasing bowel movements per daughter. Pt appeared frightened during my examination with her. Pt says she sees the doctors with "their arms cut off". PRN ativan will be given to help calm her anxiety and panic from her current delirium. Will continue to follow. Vitals/I&O Vitals/I&O: Vital Signs Date Time Temp Pulse Resp B/P (MAP) Pulse Ox O2 Delivery O2 Flow Rate FiO2 01/08/20 10:17 97.6 77 18 176/66 (102) 97 Room Air 97.6 I & O 01/07/20 01/07/20 01/08/20 15:00 23:00 07:00 Intake Total 980 ml 1460 ml 100 ml Output Total 750 ml 650 ml 1000 ml Balance 230 ml 810 ml -900 ml Physical Exam Physical Exam: GENERAL: Resting quietly, appears frightful and in mild distress HEENT: Oral cavity, pharynx is dry LUNGS: CTAB, no wheezes HEART: S1, S2. No gross murmur. ABDOMEN: Soft. : Lopez in place, 01/05 EXTREMITIES: Right upper extremity is heavily bandaged SKIN: No signs of rash LUE-PICC and PIV General: Cooperative, No acute distress Heart: Other (Atrial flutter with RVR) Lungs: Clear Abdomen: Normal bowel sounds, Soft, No tenderness Extremities: No cyanosis, Normal pulses Skin: Other (Residual erythema RIGHT upper extremity improved greatly since surgical I&D, debridement, IV antibiotics.) Review of Systems Review of Systems: Unable to obtain Assessment and Plan Assessmemt and Plan Problems Medical Problems: (1) Encephalopathy acute Status: Acute (2) Hypokalemia Status: Acute (3) Urinary tract infection Status: Acute Assessment: Metabolic encephalopathy R arm cellulitis UTI Potential sepsis Hypokalemia Possible avulsion fracture Plan: -PRN Ativan for agitation and panic secondary to delirium -PRN hydralazine 20mg q4h for elevated BP -Ortho consulted -Further imaging of hip with CT pending recommendation of specialist -Cardiac monitoring -Continue medication -PT/OT -Trend Labs -Lopez to bedside -DVT ppx -Full code -Discharge disposition pending Comment Review of Relevant I have reviewed the following items amarjit (where applicable) has been applied. Medications: Current Medications Medications (Trade) Dose Ordered Sig/Jason Route PRN Reason Start Time Stop Time Status Last Admin Dose Admin Levothyroxine Sodium (Synthroid) 112 mcg DAILYAC PO 01/08/20 10:00 01/08/20 10:12 Losartan Potassium (Cozaar) 50 mg DAILY PO 01/08/20 10:00 01/08/20 10:12 Hydralazine HCl (Apresoline Inj) 20 mg PRN Q4HRS PRN IVP ELEVATED BP, SEE COMMENTS 01/08/20 10:00 01/08/20 10:12 Lorazepam (Ativan Inj) 1 mg PRN Q4HRS PRN IVP ANXIETY / AGITATION 01/08/20 10:00 01/08/20 10:12 Alteplase, Recombinant (Cathflo For Central Catheter Clearance) 1 mg 1X ONCE INT CAT 01/08/20 11:30 01/08/20 11:31 DC 01/08/20 12:10 FRANKIE SANCHEZ III DO Jan 08, 2020 13:03
[2020-01-08 17:20] LABS: CALCIUM 7.6 mg/dL (8.5-10.1); CREATININE 0.6 mg/dL (0.6-1.0); GFR 94.3; POTASSIUM 4.3 mmol/L (3.5-5.1)
--- NOTE | 2020-01-08 18:19 | RAD ---
EXAM: CT left hip DATE: 01/08/2020 3:44 PM COMPARISON: Radiographs 01/06/2020 INDICATION: Left hip pain, possible fracture seen on prior radiograph TECHNIQUE: CT left hip was performed without IV contrast. Axial, coronal and sagittal reformatted images were generated. PQRS compliance statement - One or more of the following individualized dose reduction techniques were utilized for this study: 1. Automated exposure control 2. Adjustment of the mA and/or kV according to patient size 3. Use of iterative reconstruction technique FINDINGS: The fragment seen on prior radiographs in the region of the left hip likely corresponds to the ischial tuberosity calcification and proliferative/enthesopathic changes. Left SI joint degenerative changes are seen. 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 Left hip chondrocalcinosis seen. Diffuse edema about the left thigh anterior compartment possibly from direct contusion. Lopez catheter is seen within the bladder. Vascular calcifications are noted. IMPRESSION: 1. No evidence for left hip fracture. 2. Left hip and left SI joint joint degenerative changes are seen. Electronically signed by: Edin Chaves MD (01/08/2020 6:16 PM) [id number]
[2020-01-08] MEDS: LATANOPROST 0.005% OPHTH SOLUTION 2.5ML BOTTLE. OU SCH (21:00)
--- NOTE | 2020-01-08 23:23 | NUR ---
Pt right arm elevated on two pillows, it appears more red and edema of hand has skin more taught than last night's shift.
[2020-01-09] MEDS: POTASSIUM CL 20MEQ D5-0.45NACL 1,000 ML IV SCH ×2 (00:12→11:54)
[2020-01-09] MEDS: MEROPENEM 500 MG in IV NORMAL SALINE 50ML 50 ML IV SCH ×4 (00:12→18:03)
[2020-01-09] MEDS: HYDROcodone/APAP 5/325MG 1 TAB TABLET PO PRN ×4 (01:56→20:10)
[2020-01-09 03:08] VITALS: BP 151/66
[2020-01-09] MEDS: LEVOTHYROXINE 112 MCG TABLET PO SCH (05:45)
[2020-01-09 07:38] VITALS: BP 206/88
[2020-01-09] MEDS: LACTOBACILLUS RHAMNOSUS GG 1 CAPSULE. PO SCH ×2 (08:52→20:09)
[2020-01-09] MEDS: ASPIRIN ENTERIC COATED 81 MG TABLET.DR. PO SCH (08:52)
[2020-01-09] MEDS: LOSARTAN POTASSIUM 50 MG TABLET. PO SCH (08:53)
[2020-01-09] MEDS: hydrALAZINE 20 MG/ML VIAL. IVP PRN ×2 (08:53→14:38)
[2020-01-09] MEDS ORDERED: ONDANSETRON PF 4 MG/2 ML VIAL. IVP PRN (09:30)
[2020-01-09 10:21] VITALS: BP 166/72
--- NOTE | 2020-01-09 10:47 | PDOC ---
Infectious Disease Note Subjective Subjective Feeling better this morning, got some sleep c/o right arm pain and increase swelling Dressing recently changed No Fevers/chills/SOA ROS ROS per HPI Vital Sign Vital Signs Vital Signs Date Time Temp Pulse Resp B/P (MAP) Pulse Ox O2 Delivery O2 Flow Rate FiO2 01/09/20 10:21 97.5 85 20 166/72 (103) 97 Nasal Cannula 97.5 01/09/20 01:56 10.0 Physical Exam PHYSICAL EXAM GENERAL: Propped up in bed, alert and smiling HEENT: Oral cavity, pharynx is dry LUNGS: CTAB, no wheezes HEART: S1, S2. No gross murmur. ABDOMEN: Soft. : Lopez in place, 01/05 EXTREMITIES: Right upper extremity swollen, + reinforcing metal worker, faint redness beyond the dressing SKIN: No signs of rash LUE-PICC clean Labs Lab Laboratory Tests Test 01/08/20 16:53 Sodium Level 136 mmol/L (136-145) Potassium Level 4.3 mmol/L (3.5-5.1) Chloride Level 104 mmol/L (98-107) Carbon Dioxide Level 21 mmol/L (21-32) Anion Gap 11 (6-14) Blood Urea Nitrogen 11 mg/dL (7-20) Creatinine 0.6 mg/dL (0.6-1.0) Estimated GFR (Cockcroft-Gault) 94.3 Glucose Level 102 mg/dL (70-99) Calcium Level 7.6 mg/dL (8.5-10.1) CT IMPRESSION: 1. No evidence for left hip fracture. 2. Left hip and left SI joint joint degenerative changes are seen. Micro Right arm ANAEROBIC RES 1 PENDING AEROBIC CULT Preliminary Preliminary report AEROBIC RES 1 Preliminary Comment Beta hemolytic Streptococcus, group A URINE CULTURE RES 1 Preliminary Gram negative rods Comment Pseudomonas aeruginosa Greater than 100,000 colony forming units per mL Objective Assessment Cellulitis with deep abscess of RUE s/p I and D 01/05 group A strep so far Sinusitis PSAE UTI 01/04 - POA susceptibilities still pending Leukocytosis - improving PCN allergy - uncertain if ever had Amox Possible Sepsis - POA 01/04 - better Bandemia - s/p Dexamethasone 01/05 New Afib 01/05 MELA - better Plan Plan of Care Continue Zyvox and Merrem Probiotics f/u cultures Wound care per Ortho D/w daughter at bedside D/w nursing Awaiting ortho follow-up Patient seen and examined. Chart reviewed in detail. Case discussed with [employer]. I agree with above plan. RONAK PIPER APRN Jan 09, 2020 10:47 BOB HOPSON MD Jan 09, 2020 19:19
--- NOTE | 2020-01-09 12:25 | PDOC ---
[employer] PROGRESS NOTE Chief Complaint Chief Complaint Metabolic encephalopathy R arm cellulitis UTI Potential sepsis Hypokalemia Possible avulsion fracture History of Present Illness History of Present Illness 01/06/2020 - discussed pt with RN - reviewed chart - discussed pt progression and plan with daughter who was present in room - rate controlled cardio monitoring - no acute events overnight - discussed imaging of pelvis with pt and daughter - discussed pt with RN - pt has become more confused and disoriented over night. - reviewed chart - discussed pt progression and plan with daughter who was present in room. daughter was concerned with mental status of pt. we discussed metabolic encephalopathy\\ - d/c cardizem drip - rate controlled cardio monitoring - no acute events overnight 01/08/2020 -Patient seen and examined alongside her daughter. -Chart reviewed and care discussed with nursing staff. -Pt appears in distress and panic. She is having hallucinations and increasing bowel movements per daughter. Pt appeared frightened during my examination with her. Pt says she sees the doctors with "their arms cut off". PRN ativan will be given to help calm her anxiety and panic from her current delirium. Will continue to follow. 01/09/2020 -Patient seen and examined alongside her daughter & granddaughter. -Chart reviewed and care discussed with nursing staff. -Pt resting comfortably in bed. Per daughter, the Ativan greatly helped her mother's delirium. She has been less confused and closer to her baseline. Pt does have diffuse swelling of right upper ext, without calor or redness. Daughter reports pt had breast cancer with lymph node removal on her right side previously. Discussed with family that lymphedema therapy will be consulted for further eval and tx of the swelling. Vitals/I&O Vitals/I&O: Vital Signs Date Time Temp Pulse Resp B/P (MAP) Pulse Ox O2 Delivery O2 Flow Rate FiO2 01/09/20 10:21 97.5 85 20 166/72 (103) 97 Nasal Cannula 97.5 01/09/20 01:56 10.0 I & O 01/08/20 01/08/20 01/09/20 15:00 23:00 07:00 Intake Total 360 ml Output Total 1300 ml 1500 ml Balance -1300 ml -1140 ml Physical Exam Physical Exam: GENERAL: Propped up in bed, alert and smiling HEENT: Oral cavity, pharynx is dry LUNGS: CTAB, no wheezes HEART: S1, S2. No gross murmur. ABDOMEN: Soft. : Lopez in place, 01/05 EXTREMITIES: Right upper extremity diffuse swollen. No redness or calor. SKIN: No signs of rash LUE-PICC clean General: Cooperative, No acute distress Heart: Other (Atrial flutter with RVR) Lungs: Clear Abdomen: Normal bowel sounds, Soft, No tenderness Extremities: No cyanosis, Normal pulses Skin: Other (Residual erythema RIGHT upper extremity improved greatly since surgical I&D, debridement, IV antibiotics.) Labs Labs: Laboratory Tests Test 01/08/20 16:53 Sodium Level 136 mmol/L (136-145) Potassium Level 4.3 mmol/L (3.5-5.1) Chloride Level 104 mmol/L (98-107) Carbon Dioxide Level 21 mmol/L (21-32) Anion Gap 11 (6-14) Blood Urea Nitrogen 11 mg/dL (7-20) Creatinine 0.6 mg/dL (0.6-1.0) Estimated GFR (Cockcroft-Gault) 94.3 Glucose Level 102 mg/dL (70-99) Calcium Level 7.6 mg/dL (8.5-10.1) Review of Systems Review of Systems: Reports Right upper extremity swelling. Denies Chest pain or SOA Assessment and Plan Assessmemt and Plan Problems Medical Problems: (1) Encephalopathy acute Status: Acute (2) Hypokalemia Status: Acute (3) Urinary tract infection Status: Acute Assessment: Metabolic encephalopathy R arm cellulitis UTI Potential sepsis Hypokalemia Possible avulsion fracture Plan: -Lymphedema therapy for swelling of right arm -Continue PRN Ativan & Hydralazine -Continue IV abx -Ortho consulted -Further imaging of hip with CT pending recommendation of specialist -Cardiac monitoring -Continue home medications -PT/OT -Trend Labs -Lopez to bedside -DVT ppx with Lovenox -Full code -Discharge disposition pending Comment Review of Relevant I have reviewed the following items amarjit (where applicable) has been applied. Medications: Current Medications Medications (Trade) Dose Ordered Sig/Jason Route PRN Reason Start Time Stop Time Status Last Admin Dose Admin Ondansetron HCl (Zofran) 4 mg PRN Q6HRS PRN IVP NAUSEA/VOMITING 01/09/20 09:30 01/09/20 09:33 FRANKIE SANCHEZ III DO Jan 09, 2020 12:25
[2020-01-09 12:37] LABS: BASO # 0.1 x10^3/uL (0.0-0.2); BASO % 1 % (0-3); EOS # 0.2 x10^3/uL (0.0-0.7); EOS % 2 % (0-3); HEMATOCRIT 34.7 % (36.0-47.0); HEMOGLOBIN 11.7 g/dL (12.0-15.5); LYMPH # 0.9 x10^3/uL (1.0-4.8); LYMPH % 7 % (24-48); MEAN CORPUSCULAR HEMOGLOBIN 33 pg (25-35); MEAN CORPUSCULAR HGB CONC 34 g/dL (31-37); MEAN CORPUSCULAR VOLUME 97 fL (79-100); MONO % 7 % (0-9); NEUT # 11.4 x10^3/uL (1.8-7.7); NEUT % 83 % (31-73); PLATELET COUNT 230 x10^3/uL (140-400); RED BLOOD COUNT 3.59 x10^6/uL (3.50-5.40); RED CELL DISTRIBUTION WIDTH 13.9 % (11.5-14.5); WHITE BLOOD COUNT 13.7 x10^3/uL (4.0-11.0)
[2020-01-09 12:49] LABS: CALCIUM 8.1 mg/dL (8.5-10.1); CREATININE 0.8 mg/dL (0.6-1.0); GFR 67.7; POTASSIUM 3.9 mmol/L (3.5-5.1)
[2020-01-09 13:29] LABS: % ATYL 2 % (0-0); % BANDS 7 % (0-9); % BASOS 1 % (0-3); % EOS 1 % (0-5); % LYMPHS 5 % (24-48); % METAS 1 % (0-0); % MONOS 2 % (0-10); % SEGS 81 % (35-66)
[2020-01-09 13:30] LABS: PLT ESTIMATE ADEQUATE (ADEQUATE)
[2020-01-09 13:31] LABS: TOXIC GRANULATION SLIGHT
[2020-01-09 14:30] VITALS: BP 166/72
[2020-01-09] MEDS ORDERED: ENOXAPARIN 40 MG/0.4 ML SYRINGE. SQ SCH (16:00)
[2020-01-09 18:19] VITALS: BP 147/65
[2020-01-09] MEDS: LATANOPROST 0.005% OPHTH SOLUTION 2.5ML BOTTLE. OU SCH (20:09)
[2020-01-09] MEDS ORDERED: RANI150C PO (22:27)
[2020-01-09 23:00] VITALS: BP 113/56
[2020-01-09] MEDS ORDERED: FAMOTIDINE 20 MG/2 ML VIAL IVP SCH (23:00)
[2020-01-10] MEDS: HYDROcodone/APAP 5/325MG 1 TAB TABLET PO PRN ×3 (00:09→13:47)
[2020-01-10] MEDS: MEROPENEM 500 MG in IV NORMAL SALINE 50ML 50 ML IV SCH ×2 (00:09→06:16)
[2020-01-10] MEDS: POTASSIUM CL 20MEQ D5-0.45NACL 1,000 ML IV SCH (02:38)
[2020-01-10 03:00] VITALS: BP 147/91
[2020-01-10 07:00] VITALS: BP 139/63
[2020-01-10] MEDS: LOSARTAN POTASSIUM 50 MG TABLET. PO SCH (09:09)
[2020-01-10] MEDS: ASPIRIN ENTERIC COATED 81 MG TABLET.DR. PO SCH (09:09)
[2020-01-10] MEDS: LEVOTHYROXINE 112 MCG TABLET PO SCH (09:09)
[2020-01-10] MEDS: LACTOBACILLUS RHAMNOSUS GG 1 CAPSULE. PO SCH (09:09)
--- NOTE | 2020-01-10 09:20 | PDOC ---
Infectious Disease Note Subjective Subjective Feeling better this morning, got some sleep c/o right arm pain and increase swelling Dressing recently changed No Fevers/chills/SOA Vital Sign Vital Signs Vital Signs Date Time Temp Pulse Resp B/P (MAP) Pulse Ox O2 Delivery O2 Flow Rate FiO2 01/10/20 09:09 78 139/63 01/10/20 07:00 97.2 20 98 Room Air 97.2 Physical Exam PHYSICAL EXAM GENERAL: Propped up in bed, alert and smiling HEENT: Oral cavity, pharynx is dry LUNGS: CTAB, no wheezes HEART: S1, S2. No gross murmur. ABDOMEN: Soft. : Lopez in place, 01/05 EXTREMITIES: Right upper extremity diffuse swollen. No redness or calor. SKIN: No signs of rash LUE-PICC clean Labs Lab Laboratory Tests Test 01/09/20 12:20 01/10/20 00:02 White Blood Count 13.7 x10^3/uL (4.0-11.0) Red Blood Count 3.59 x10^6/uL (3.50-5.40) Hemoglobin 11.7 g/dL (12.0-15.5) Hematocrit 34.7 % (36.0-47.0) Mean Corpuscular Volume 97 fL (79-100) Mean Corpuscular Hemoglobin 33 pg (25-35) Mean Corpuscular Hemoglobin Concent 34 g/dL (31-37) Red Cell Distribution Width 13.9 % (11.5-14.5) Platelet Count 230 x10^3/uL (140-400) Neutrophils (%) (Auto) 83 % (31-73) Lymphocytes (%) (Auto) 7 % (24-48) Monocytes (%) (Auto) 7 % (0-9) Eosinophils (%) (Auto) 2 % (0-3) Basophils (%) (Auto) 1 % (0-3) Neutrophils # (Auto) 11.4 x10^3/uL (1.8-7.7) Lymphocytes # (Auto) 0.9 x10^3/uL (1.0-4.8) Monocytes # (Auto) 1.0 x10^3/uL (0.0-1.1) Eosinophils # (Auto) 0.2 x10^3/uL (0.0-0.7) Basophils # (Auto) 0.1 x10^3/uL (0.0-0.2) Segmented Neutrophils % 81 % (35-66) Band Neutrophils % 7 % (0-9) Lymphocytes % 5 % (24-48) Atypical Lymphocytes % (Manual) 2 % (0-0) Monocytes % 2 % (0-10) Eosinophils % 1 % (0-5) Basophils % 1 % (0-3) Metamyelocytes % 1 % (0-0) Toxic Granulation Slight Platelet Estimate Adequate (ADEQUATE) Sodium Level 136 mmol/L (136-145) Potassium Level 3.9 mmol/L (3.5-5.1) Chloride Level 103 mmol/L (98-107) Carbon Dioxide Level 26 mmol/L (21-32) Anion Gap 7 (6-14) Blood Urea Nitrogen 9 mg/dL (7-20) Creatinine 0.8 mg/dL (0.6-1.0) Estimated GFR (Cockcroft-Gault) 67.7 Glucose Level 114 mg/dL (70-99) Calcium Level 8.1 mg/dL (8.5-10.1) Glucose (Fingerstick) 121 mg/dL (70-99) Micro Microbiology 01/05/20 Anaerobic/Aerobic Culture, Resulted Pending 01/05/20 Anaerobic Culture Result 1 (BRICE), Resulted Pending 01/05/20 Aerobic Culture - Final, Resulted 01/05/20 Aerobic Culture Result 1 (BRICE) - Final, Resulted 01/05/20 Gram Stain - Final, Resulted 01/05/20 Gram Stain Result 1 (BRICE) - Final, Resulted 01/05/20 Gram Stain Result 2 (BRICE) - Final, Resulted 01/04/20 Urine Culture - Final, Complete 01/04/20 Urine Culture Result 1 (BRICE) - Final, Complete 01/04/20 Antimicrobic Susceptibility - Final, Complete Objective Assessment Cellulitis with deep abscess of RUE s/p I and D 01/05 group A strep so far Sinusitis PSAE UTI 01/04 - POA susceptibilities still pending Leukocytosis - improving PCN allergy - uncertain if ever had Amox Possible Sepsis - POA 01/04 - better Bandemia - s/p Dexamethasone 01/05 New Afib 01/05 MELA - better Plan Plan of Care change Zyvox and Merrem to cefazolin Probiotics f/u cultures Wound care per Ortho D/w daughter at bedside D/w nursing TRISTON JEAN BAPTISTE MD Jan 10, 2020 09:20
--- NOTE | 2020-01-10 09:38 | PDOC ---
[employer] PROGRESS NOTE Chief Complaint Chief Complaint Metabolic encephalopathy R arm cellulitis UTI Potential sepsis Hypokalemia Possible avulsion fracture History of Present Illness History of Present Illness 01/06/2020 - discussed pt with RN - reviewed chart - discussed pt progression and plan with daughter who was present in room - rate controlled cardio monitoring - no acute events overnight - discussed imaging of pelvis with pt and daughter - discussed pt with RN - pt has become more confused and disoriented over night. - reviewed chart - discussed pt progression and plan with daughter who was present in room. daughter was concerned with mental status of pt. we discussed metabolic encephalopathy\\ - d/c cardizem drip - rate controlled cardio monitoring - no acute events overnight 01/08/2020 -Patient seen and examined alongside her daughter. -Chart reviewed and care discussed with nursing staff. -Pt appears in distress and panic. She is having hallucinations and increasing bowel movements per daughter. Pt appeared frightened during my examination with her. Pt says she sees the doctors with "their arms cut off". PRN ativan will be given to help calm her anxiety and panic from her current delirium. Will continue to follow. 01/09/2020 -Patient seen and examined alongside her daughter & granddaughter. -Chart reviewed and care discussed with nursing staff. -Pt resting comfortably in bed. Per daughter, the Ativan greatly helped her mother's delirium. She has been less confused and closer to her baseline. Pt does have diffuse swelling of right upper ext, without calor or redness. Daughter reports pt had breast cancer with lymph node removal on her right side previously. Discussed with family that lymphedema therapy will be consulted for further eval and tx of the swelling. 01/10/2020 -Pt seen and examined alongside multiple family members. -Chart reviewed and care discussed with nursing staff. -Pt resting comfortably in her bed. Pt less confused and is improving clinically daily. Pt had reflux last night. Will add pepcid to help manage. Pt right arm c ontinues to show generalized swelling. Lymphedema therapy should be by later today to eval and treat. Vitals/I&O Vitals/I&O: Vital Signs Date Time Temp Pulse Resp B/P (MAP) Pulse Ox O2 Delivery O2 Flow Rate FiO2 01/10/20 09:09 78 139/63 01/10/20 07:00 97.2 20 98 Room Air 97.2 I & O 01/09/20 01/09/20 01/10/20 15:00 23:00 07:00 Intake Total 50 ml 850 ml 1350 ml Output Total 1900 ml 1600 ml Balance 50 ml -1050 ml -250 ml Physical Exam Physical Exam: GENERAL: NAD, alert and smiling HEENT: Oral cavity, pharynx is dry LUNGS: CTAB, no wheezes HEART: S1, S2. No gross murmur. ABDOMEN: Soft. : Lopez in place, 01/05 EXTREMITIES: Right upper extremity diffuse swollen. No redness or calor. Trace b/l lower ext swelling. SKIN: No signs of rash LUE-PICC clean General: Alert, Cooperative, No acute distress Heart: Regular rate, No murmurs, Other (Atrial flutter with RVR) Lungs: Clear Abdomen: Normal bowel sounds, Soft, No tenderness Extremities: No cyanosis, Normal pulses Skin: Other (Residual erythema RIGHT upper extremity improved greatly since surgical I&D, debridement, IV antibiotics.) Labs Labs: Laboratory Tests Test 01/09/20 12:20 01/10/20 00:02 White Blood Count 13.7 x10^3/uL (4.0-11.0) Red Blood Count 3.59 x10^6/uL (3.50-5.40) Hemoglobin 11.7 g/dL (12.0-15.5) Hematocrit 34.7 % (36.0-47.0) Mean Corpuscular Volume 97 fL (79-100) Mean Corpuscular Hemoglobin 33 pg (25-35) Mean Corpuscular Hemoglobin Concent 34 g/dL (31-37) Red Cell Distribution Width 13.9 % (11.5-14.5) Platelet Count 230 x10^3/uL (140-400) Neutrophils (%) (Auto) 83 % (31-73) Lymphocytes (%) (Auto) 7 % (24-48) Monocytes (%) (Auto) 7 % (0-9) Eosinophils (%) (Auto) 2 % (0-3) Basophils (%) (Auto) 1 % (0-3) Neutrophils # (Auto) 11.4 x10^3/uL (1.8-7.7) Lymphocytes # (Auto) 0.9 x10^3/uL (1.0-4.8) Monocytes # (Auto) 1.0 x10^3/uL (0.0-1.1) Eosinophils # (Auto) 0.2 x10^3/uL (0.0-0.7) Basophils # (Auto) 0.1 x10^3/uL (0.0-0.2) Segmented Neutrophils % 81 % (35-66) Band Neutrophils % 7 % (0-9) Lymphocytes % 5 % (24-48) Atypical Lymphocytes % (Manual) 2 % (0-0) Monocytes % 2 % (0-10) Eosinophils % 1 % (0-5) Basophils % 1 % (0-3) Metamyelocytes % 1 % (0-0) Toxic Granulation Slight Platelet Estimate Adequate (ADEQUATE) Sodium Level 136 mmol/L (136-145) Potassium Level 3.9 mmol/L (3.5-5.1) Chloride Level 103 mmol/L (98-107) Carbon Dioxide Level 26 mmol/L (21-32) Anion Gap 7 (6-14) Blood Urea Nitrogen 9 mg/dL (7-20) Creatinine 0.8 mg/dL (0.6-1.0) Estimated GFR (Cockcroft-Gault) 67.7 Glucose Level 114 mg/dL (70-99) Calcium Level 8.1 mg/dL (8.5-10.1) Glucose (Fingerstick) 121 mg/dL (70-99) Review of Systems Review of Systems: Reports lower ext swelling Continues to have R arm swelling Reports reflux Denies chest pain or SOA Assessment and Plan Assessmemt and Plan Problems Medical Problems: (1) Encephalopathy acute Status: Acute (2) Hypokalemia Status: Acute (3) Urinary tract infection Status: Acute Assessment: Metabolic encephalopathy R arm cellulitis UTI Potential sepsis Hypokalemia Possible avulsion fracture Plan: -Pepcid 20mg BID for reflux -Lymphedema therapy for swelling of right arm -Continue PRN Ativan & Hydralazine -Continue IV abx (recently changed to cefazolin per ID) -Womb care per ortho -Cardiac monitoring -Continue home medications -PT/OT -Trend Labs -Lopez to bedside -DVT ppx with Lovenox -Full code -Discharge pending with probably SNU tomorrow Comment Review of Relevant I have reviewed the following items amarjit (where applicable) has been applied. Medications: Current Medications Medications (Trade) Dose Ordered Sig/Jason Route PRN Reason Start Time Stop Time Status Last Admin Dose Admin Famotidine (Pepcid Vial) 20 mg QHS IVP 01/09/20 23:00 01/09/20 23:00 FRANKIE SANCHEZ III DO Jan 10, 2020 09:38
[2020-01-10 09:54] LABS: BASO # 0.1 x10^3/uL (0.0-0.2); BASO % 1 % (0-3); EOS # 0.3 x10^3/uL (0.0-0.7); EOS % 2 % (0-3); HEMATOCRIT 36.2 % (36.0-47.0); HEMOGLOBIN 12.2 g/dL (12.0-15.5); LYMPH # 0.9 x10^3/uL (1.0-4.8); LYMPH % 8 % (24-48); MEAN CORPUSCULAR HEMOGLOBIN 33 pg (25-35); MEAN CORPUSCULAR HGB CONC 34 g/dL (31-37); MEAN CORPUSCULAR VOLUME 97 fL (79-100); MONO # 0.8 x10^3/uL (0.0-1.1); MONO % 7 % (0-9); NEUT # 9.1 x10^3/uL (1.8-7.7); NEUT % 82 % (31-73); PLATELET COUNT 237 x10^3/uL (140-400); RED BLOOD COUNT 3.72 x10^6/uL (3.50-5.40); WHITE BLOOD COUNT 11.2 x10^3/uL (4.0-11.0)
[2020-01-10 10:08] LABS: CALCIUM 8.6 mg/dL (8.5-10.1); CREATININE 0.8 mg/dL (0.6-1.0); GFR 67.7
[2020-01-10] MEDS: hydrALAZINE 20 MG/ML VIAL. IVP PRN (10:49)
[2020-01-10 11:00] VITALS: BP 167/74
--- NOTE | 2020-01-10 11:27 | SNU/HH DC ---
DISCHARGE ORDERS DISCHARGE INFORMATION: FINAL DIAGNOSIS Problems Medical Problems: (1) Encephalopathy acute Status: Acute (2) Hypokalemia Status: Acute (3) Urinary tract infection Status: Acute CONDITION ON DISCHARGE: Stable CODE STATUS: Code Status: Full CARE HOME: SNF STAY <30 DAYS: Yes HOSPICE: HOSPICE: No HOSPICE EVAL & TREAT: No LTAC: ADMIT TO LTAC: No POST DISCHARGE ORDERS: ACTIVITY ORDERS: No restrictions, Resume previous activity, Activity as tolerated DIET AFTER DISCHARGE: Cardiac CHECKS AFTER DISCHARGE: CHECKS AFTER DISCHARGE: Check blood press - daily TREATMENT/EQUIPMENT ORDERS: ADAPTIVE EQUIPMENT NEEDED: None Physical Therapy For: Evalulation/Treatment Occupational Therapy For: Evaluation/Treatment Speech Language Pathology For: Evaluation/Treatment DISCHARGE MEDICATIONS: Home Meds Reported Medications Ranitidine Hcl (RANITIDINE HCL) 150 Mg Capsule, 150 MG PO DAILY for gi gas, TAB 01/09/20 Garlic (GARLIC) 1,000 Mg Capsule, 1000 MG PO DAILY08 05/10/14 Flaxseed Oil (FLAX SEED OIL) 1,000 Mg Capsule, 1000 MG PO TID 05/10/14 [place]-3/Dha/Epa/Fish Oil (FISH OIL OMEGA-3 SOFTGEL) 1 Each Capsule.dr, 1 EACH PO BIDAC 05/10/14 Multivits-Min/Fa/Lycopene/Lut (CENTRUM SILVER TABLET) 1 Each Tablet, 1 EACH PO D AILY08 05/10/14 Calcium Citrate/Vitamin D3 (CALCIUM CITRATE - VIT D3 TAB) 1 Each Tablet, 1 EACH PO DAILY08 05/10/14 Magnesium Oxide (MAGNESIUM) 400 Mg Capsule, 400 MG PO DAILY08 05/10/14 Latanoprost (LATANOPROST) 2.5 Ml Drops, 1 DROP OP HS, EACH 05/10/14 Clopidogrel Bisulfate (CLOPIDOGREL) 75 Mg Tablet, 75 MG PO DAILY08 for TO PREVENT BLOOD CLOTS, #30 TAB 0 Refills 05/10/14 Potassium Chloride (POTASSIUM CHLORIDE ) 20 Meq Tablet.er, 20 MEQ PO TIDWMEALS, TAB.SR 05/10/14 Verapamil Hcl (VERAPAMIL HCL) 120 Mg Tablet, 240 MG PO TIDWMEALS, TAB 05/10/14 Levothyroxine Sodium (LEVOTHYROXINE SODIUM) 112 Mcg Tablet, 112 MCG PO DAILYAC for THYROID SUPPLEMENT, #30 TAB 0 Refills 05/10/14 CASTLE,NIAL K III DO Jan 10, 2020 11:27
--- NOTE | 2020-01-10 12:42 | NUR ---
SS following up with discharge planning. PT/OT recommending [facility]. SS met with pt and pt's family and was asked to discuss difference between LTAC and [facility]. SS provided explanation. Pt's family agreeable to [facility], ; fax [phone]. SS phoned and faxed discharge orders and referral to [facility]. SS will await acceptance decision and will proceed accordingly. Pt's RN notified.
--- NOTE | 2020-01-10 13:34 | NUR ---
SS following up with discharge planning. Pt accepted at [facility], ; fax [phone]. Pt will discharge today and go to [facility] at 1600 via [facility] ambulance, . Pt, pt's family, and pt's RN notified. Packet and ambulance form on chart.
[2020-01-10 15:00] VITALS: BP 125/60
--- NOTE | 2020-01-10 18:34 | NUR ---
Discharge Note: BECKIE HUFF [address] [place] [address] Discharge instructions and discharge home medications reviewed with Patient and a copy given. All questions have been answered and understanding verbalized. Patient discharged to SNU with EMS via stretcher
[2020-01-10] MEDS ORDERED: FAMOTIDINE 20 MG TABLET. PO SCH (21:00)
== END 2020-01-10 18:37 | DRG 871 ==
LOC: ER 18:46 → ED HOLD 19:30 → 1 WEST ICU 01-05 01:24 → 2 SOUTH 01-07 18:51
PROVIDERS: ADMIT Family Medicine; ATTEND Family Medicine
PROC: 0X9F0ZZ Drainage of Left Lower Arm, Open Approach (ICD-10-PCS; principal; 2020-01-05 07:30)
DX: A41.9 Sepsis, unspecified organism (principal); G93.41 Metabolic encephalopathy; S32.612A Displaced avulsion fracture of left ischium, initial encounter for closed fracture; E87.1 Hypo-osmolality and hyponatremia; I48.92 Unspecified atrial flutter; L03.113 Cellulitis of right upper limb; N17.9 Acute kidney failure, unspecified; N39.0 Urinary tract infection, site not specified; B96.89 Other specified bacterial agents as the cause of diseases classified elsewhere; E03.9 Hypothyroidism, unspecified; E78.5 Hyperlipidemia, unspecified; E86.0 Dehydration; E87.6 Hypokalemia; F41.9 Anxiety disorder, unspecified; G89.29 Other chronic pain; I10 Essential (primary) hypertension; I16.0 Hypertensive urgency; I48.91 Unspecified atrial fibrillation; K21.9 Gastro-esophageal reflux disease without esophagitis; M71.021 Abscess of bursa, right elbow; M19.031 Primary osteoarthritis, right wrist; Z96.651 Presence of right artificial knee joint; H40.9 Unspecified glaucoma; Z60.2 Problems related to living alone; J32.9 Chronic sinusitis, unspecified; S40.021A Contusion of right upper arm, initial encounter; W19.XXXA Unspecified fall, initial encounter; Z82.49 Family history of ischemic heart disease and other diseases of the circulatory system; Z85.3 Personal history of malignant neoplasm of breast; Z85.828 Personal history of other malignant neoplasm of skin; Z86.73 Personal history of transient ischemic attack (TIA), and cerebral infarction without residual deficits; Z88.0 Allergy status to penicillin; Z90.49 Acquired absence of other specified parts of digestive tract; Z90.710 Acquired absence of both cervix and uterus; Z88.5 Allergy status to narcotic agent; Z88.8 Allergy status to other drugs, medicaments and biological substances; Z98.49 Cataract extraction status, unspecified eye; Y93.89 Activity, other specified; Y92.89 Other specified places as the place of occurrence of the external cause; Y99.8 Other external cause status
CPT/HCPCS: 36415; 36569; 70450; 71045; 73060; 73080; 73090; 73521; 73700; 80048; 80053; 81001; 82550; 82962; 83036; 83605; 83735; 84484; 85007; 85025; 85610; 85651; 85730; 86140; 87071; 87075; 87086; 87186; 93005; 93971; 96361; 96365; 96366; 96367; 96368; A7015; J0360; J0696; J0878; J1100; J1956; J2001; J2020; J2060; J2185; J2405; J2704; J3010; J3370; J3480; J3490; J7030; J7040; P9612; 97530; 99285-25; A4461; G0378

== ENCOUNTER → 2020-06-16 | Outpatient (CLI) | payer MEDICARE ==
[~2020-06-16] MED LIST changes: -LEVO112T4 PO; +LEVO112T49 PO; +RANI150C PO
== END | disposition home or self-care (01) ==
LOC: SPEC 13:47
PROVIDERS: ATTEND Family Medicine
DX: Z11.59 Encounter for screening for other viral diseases (principal)
CPT/HCPCS: U0003-CS

== ENCOUNTER 2020-07-20 15:02 | Observation (INO) | payer MEDICARE ==
[~2020-07-20] VITALS: Ht 165.1 cm; Wt 75.0 kg
--- NOTE | 2020-07-20 15:20 | PHYS DOC ---
Past Medical History Past Medical History: Cancer, Hypertension, Stroke, Other Additional Past Medical Histor: breast, skin cancer, cataracts, menier's, lymphedema to right arm Past Surgical History: Appendectomy, Cholecystectomy, Hysterectomy, Knee Replacement, Other Additional Past Surgical Histo: back surgery Smoking Status: Never Smoker Alcohol Use: None Drug Use: None General Adult EDM: Chief Complaint: Chest pain HPI: HPI: Patient is an 89-year-old female brought to the ED by ambulance due to sudden onset chest pain. Patient states that she has abrupt onset chest pain while sitting in her recliner that only lasted a moment. Patient states is currently not experiencing any pain. Patient denies any current chest pain, abdominal pain, shortness of breath, changes in urination, changes in bowel movements. Patient is hard of hearing and hears better out of right ear via her hearing aid. Past medical history includes hypertension, stroke, breast cancer, skin cancer, cataracts, menier's, lymphedema to right arm per her note previous notes. Review of Systems: Review of Systems: Constitutional: Denies fever or chills Eyes: Denies redness or eye pain HENT: Denies nasal congestion or sore throat Respiratory: Denies cough or shortness of breath Cardiovascular: Endorses chest pain, denies palpitations GI: Denies abdominal pain, nausea, or vomiting : Denies dysuria or hematuria Musculoskeletal: Denies back pain or joint pain Integument: Denies rash or skin lesions Neurologic: Denies headache, focal weakness or sensory changes Complete systems were reviewed and found to be within normal limits, except as documented in this note. Heart Score: HEART Score for Chest Pain: HEART Score for Chest Pain Response (Comments) Value History Slighlty/Non-Suspicious 0 ECG Normal 0 Age > 65 2 Risk Factors >3 Risk Factors or Hx CAD 2 Troponin < Normal Limit 0 Total 4 Risk Factors: Risk Factors: DM, Current or recent (<one month) smoker, HTN, HLP, family history of CAD, obesity. Risk Scores: Score 0 - 3: 2.5% MACE over next 6 weeks - Discharge Home Score 4 - 6: 20.3% MACE over next 6 weeks - Admit for Clinical Observation Score 7 - 10: 72.7% MACE over next 6 weeks - Early Invasive Strategies Allergies: Allergies: Allergies Coded Allergies Type Severity Reaction Last Updated Verified Penicillins Allergy Intermediate 01/10/20 Yes etodolac Allergy Intermediate 08/02/15 Yes meperidine Allergy Intermediate 08/02/15 Yes morphine Allergy Intermediate 08/02/15 Yes oxycodone Allergy Intermediate 08/02/15 Yes pentazocine Allergy Intermediate 08/02/15 Yes Physical Exam: PE: Constitutional: Frail, no acute distress, non-toxic appearance HENT: Normocephalic, atraumatic Eyes: PERRL, EOMI, conjunctiva normal, no discharge Neck: Normal range of motion, no tenderness, supple, no JVD appreciated Lungs & Thorax: Equal chest rise and fall bilaterally, no respiratory distress Abdomen: Soft, no tenderness Skin: Warm, dry, no erythema, no rash Back: No tenderness, no CVA tenderness Extremities: No tenderness, ROM intact, +1 pitting edema Neurologic: Alert and oriented X 3, normal motor function, normal sensory function, no focal deficits noted Psychologic: Affect normal, judgment normal EKG: EK07/20/2020 15:12 heart rate 57 bpm, regular sinus rhythm, QRS 78 ms, QT 432 ms, QTC 428 ms, no ST changes Radiology/Procedures: Radiology/Procedures: PROCEDURE: PORTABLE CHEST 1V PORTABLE CHEST 1V History: Reason: chest pain, LABS AND EKG@1537 / Spl. Instructions: / History: Comparison: January 04, 2020 Findings: Patchy left basilar opacity compared to prior. No pleural effusion. No pneumothorax. Normal heart size.. Changes lower cervical spine. Impression: 1. Patchy left basilar opacity, likely atelectasis. Electronically signed by: Jesus Doe DO (07/20/2020 4:38 PM) [facility] DICTATED and SIGNED BY: JESUS DOE DO DATE: 07/20/20 [id number] Course & Med Decision Making: Course & Med Decision Making Pertinent Labs and Imaging studies reviewed. (See chart for details) Patient is an 89-year-old female brought to the ED for sudden onset chest pain. This chest pain was described as brief and she has not experienced an episode since. Patient appears slightly anxious during physical exam. Physical exam was unremarkable. Chest x-ray showed left lower lobe patchy opacities, probable atelectasis. Labs showed an elevated d-dimer. Since being in the ED patient appears more pleasant and is desiring discharge. Patient stable for discharge with outpatient follow-up with PCP. Discussed findings and plan with patient, who acknowledges understanding and agreement. Elizabeth Disclaimer: Dragon Disclaimer: This electronic medical record was generated, in whole or in part, using a voice recognition dictation system. Departure Departure Impression: Primary Impression: Chest pain Qualified Codes: R07.9 - Chest pain, unspecified Additional Impressions: Acute renal insufficiency Elevated d-dimer Suspected 2019 novel coronavirus infection Disposition: ADMITTED INPATIENT Admitting Physician: BREA Sanchez) Condition: STABLE Referrals: Wes JIMENEZ MD (PCP) Justicifation of Admission Dx: Justifications for Admission: Justification of Admission Dx: Yes Comments: Chest pain r/o acs, elevated d-dimer, COVID PUI, actue renal insufficiency COVID-19 Assessment: COVID-19 Patient Risks: Age 65 or older: Yes Sign of co-morbidity: Yes Exp to person + for COVID: No Exp to PUI: No Travel from affected area: Yes (detention with positive patients) Lower respiratory symptoms: No Fever: No PPE Use: Full PPE with N95 mask or PAPR: Yes EBENEZER LIMON DO Jul 20, 2020 15:20
--- NOTE | 2020-07-20 15:40 | EKG ---
[facility] [address] [place] [address] Test Date: 2020-07-20 Test Time: 15:12:04 Pat Name: BECKIE HUFF Department: Room: Gender: F Manager Furniture: : [id number] Requested By: EBENEZER LIMON Order Number: [id number] Reading MD: Measurements Intervals [place] Rate: 59 P: 37 MN: 184 QRS: -21 QRSD: 78 T: 43 QT: 432 QTc: 428 Interpretive Statements SINUS RHYTHM LEFTWARD AXIS OTHERWISE NORMAL ECG RI6.02 No previous ECG available for comparison
[2020-07-20 15:42] LABS: BASO # 0.1 x10^3/uL (0.0-0.2); BASO % 2 % (0-3); EOS # 0.3 x10^3/uL (0.0-0.7); EOS % 4 % (0-3); HEMOGLOBIN 13.2 g/dL (12.0-15.5); LYMPH # 1.6 x10^3/uL (1.0-4.8); LYMPH % 28 % (24-48); MEAN CORPUSCULAR HEMOGLOBIN 33 pg (25-35); MEAN CORPUSCULAR HGB CONC 35 g/dL (31-37); MEAN CORPUSCULAR VOLUME 95 fL (79-100); MONO # 0.7 x10^3/uL (0.0-1.1); MONO % 13 % (0-9); NEUT % 53 % (31-73); PLATELET COUNT 180 x10^3/uL (140-400); PROTHROMBIN TIME PATIENT 13.1 SEC (11.7-14.0); RED BLOOD COUNT 3.99 x10^6/uL (3.50-5.40); RED CELL DISTRIBUTION WIDTH 13.8 % (11.5-14.5); WHITE BLOOD COUNT 5.7 x10^3/uL (4.0-11.0)
[2020-07-20 15:44] LABS: D-DIMER 0.67 ug/mlFEU (0.00-0.50)
[2020-07-20 15:47] LABS: CALCIUM 8.7 mg/dL (8.5-10.1); CREATININE 1.2 mg/dL (0.6-1.0); GFR 42.3; POTASSIUM 3.9 mmol/L (3.5-5.1)
[2020-07-20 15:52] LABS: ALBUMIN 3.7 g/dL (3.4-5.0); ALBUMIN/GLOBULIN RATIO 1.1 (1.0-1.7); MAGNESIUM 2.1 mg/dL (1.8-2.4); TOTAL BILIRUBIN 0.5 mg/dL (0.2-1.0); TOTAL PROTEIN 7.1 g/dL (6.4-8.2)
--- NOTE | 2020-07-20 16:41 | RAD ---
PORTABLE CHEST 1V History: Reason: chest pain, LABS AND EKG@1537 / Spl. Instructions: / History: Comparison: January 04, 2020 Findings: Patchy left basilar opacity compared to prior. No pleural effusion. No pneumothorax. Normal heart size.. Changes lower cervical spine. Impression: 1. Patchy left basilar opacity, likely atelectasis. Electronically signed by: Jesus Doe DO (07/20/2020 4:38 PM) [facility]
[2020-07-20] MEDS ORDERED: ONDANSETRON PF 4 MG/2 ML VIAL. IV PRN (18:45)
[2020-07-20 19:09] LABS: BILIRUBIN,URINE NEGATIVE (NEG); CLARITY,URINE CLEAR; NITRITE,URINE NEGATIVE (NEG); PH,URINE 5.5 (<5.0-8.0); PROTEIN,URINE NEGATIVE (NEG-TRACE); UROBILINOGEN,URINE 0.2 mg/dL (0.2 mg/dL)
[2020-07-20 19:27] LABS: COLOR,URINE STRAW; SQUAMOUS EPITHELIAL CELL,UR FEW /LPF
[2020-07-20 19:28] LABS: BACTERIA,URINE 0 /HPF (0-FEW); RBC,URINE RARE /HPF (0-2); WBC,URINE RARE /HPF (0-4)
[2020-07-20 20:50] VITALS: BP 138/68
--- NOTE | 2020-07-20 21:53 | PDOC1 ---
History and Physical Date of Service: DOS: DATE: 07/20/20 TIME: 21:44 History of Present Illness: HPI: Patient is an 89-year-old female with past medical history of atrial fibri llation, hypertension, cerebellar stroke in 2011 who presents with 3-day progressively worsening sharp chest pain that substernal in nature and radiates towards the middle. There is no associated nausea or vomiting. There is no alleviating or exacerbating factors. Patient's states that pain is not during any particular position or during exertion. Patient states that her cardio logist was planning for a stress test in 2 weeks. Patient currently does not have any chest pain. Denies fevers, shortness of breath, abdominal pain, diarrhea, weakness, syncope, or palpitations Past Medical/Surgical History: PMH/PSH: Past Medical History: Afib, Hypertension, Cerebellar stroke 2012 breast cancer, cataracts, lymphedema to right arm Past Surgical History: Appendectomy, Cholecystectomy, Hysterectomy, Knee Replacement, back surgery Allergies: Allergies: Coded Allergies: Penicillins (Verified Allergy, Intermediate, 01/10/20) Has tolerated ceftriaxone and merrem etodolac (Verified Allergy, Intermediate, 08/02/15) meperidine (Verified Allergy, Intermediate, 08/02/15) morphine (Verified Allergy, Intermediate, 08/02/15) oxycodone (Verified Allergy, Intermediate, 08/02/15) pentazocine (Verified Allergy, Intermediate, 08/02/15) Family History: Family History: Reviewed and none reported Social History: Social History: Smoking Status: Never Smoker Alcohol Use: None Drug Use: None Current Medications: Current Medications Current Medications Ondansetron HCl (Zofran) 4 mg PRN Q8HRS PRN IV NAUSEA/VOMITING; Start 07/20/20 at 18:45; Stop 07/21/20 at 18:44 Active Scripts Active Reported Ranitidine Hcl 150 Mg Capsule 150 Mg PO DAILY Garlic 1,000 Mg Capsule 1,000 Mg PO DAILY08 Flax Seed Oil (Flaxseed Oil) 1,000 Mg Capsule 1,000 Mg PO TID Fish Oil Weott-3 Softgel (Weott-3/Dha/Epa/Fish Oil) 1 Each Capsule.dr 1 Each PO BIDAC Centrum Silver Tablet (Multivits-Min/Fa/Lycopene/Lut) 1 Each Tablet 1 Each PO DAILY08 Calcium Citrate - Vit D3 Tab (Calcium Citrate/Vitamin D3) 1 Each Tablet 1 Each PO DAILY08 Magnesium (Magnesium Oxide) 400 Mg Capsule 400 Mg PO DAILY08 Latanoprost 2.5 Ml Drops 1 Drop OP HS Clopidogrel (Clopidogrel Bisulfate) 75 Mg Tablet 75 Mg PO DAILY08 Potassium Chloride (Potassium Chloride) 20 Meq Tablet.er 20 Meq PO TIDWMEALS Verapamil Hcl 120 Mg Tablet 240 Mg PO TIDWMEALS Levothyroxine Sodium 112 Mcg Tablet 112 Mcg PO DAILYAC ROS: Review of Systems Review of System REVIEW OF SYSTEMS: GENERAL: Denies weakness SKIN: No bruising, hair changes or rashes. EYES: No blurred, double or loss of vision. NOSE AND THROAT: No history of nosebleeds, hoarseness or sore throat. HEART: No history of palpitations, chest pain or shortness of breath on exertion. LUNGS: Denies cough, hemoptysis, wheezing or shortness of breath. GASTROINTESTINAL: Denies changes in appetite, nausea, vomiting, diarrhea or constipation. GENITOURINARY: No history of frequency, urgency, hesitancy or nocturia. NEUROLOGIC: Denies history of numbness, tingling, or tremor. PSYCHIATRIC: No history of panic, anxiety or depression. ENDOCRINE: No history of heat or cold intolerance, polyuria or polydipsia. EXTREMITIES: Denies joint pain, pain on walking or stiffness. Physical Exam: Vital Signs: Vital Signs Date Time Temp Pulse Resp B/P (MAP) Pulse Ox O2 Delivery O2 Flow Rate FiO2 07/20/20 18:41 62 181/74 (109) 97 Room Air 07/20/20 15:06 97.8 18 97.8 Physcial Exam: GEN: No apparent distress. Alert and oriented HEENT: Normal cephalic, atraumatic, external auditory canals are patent EYES: Extraocular muscles are intact, pupil are equally round and reactive to light and accommodation MUSCULOSKELETAL: Well developed , well nourished, good range of motion ENDOCRINE: No thyromegaly was palpated LYMPHATICS: No cervical chain or axillary nodes were noted HEMATOPOIETIC: No bruising NECK: Supple, no JVD, no thyromegaly was noted LUNGS: Clear to auscultation in all lung evans without rhonchi or wheezing HEART: RRR, S!, S2 present. Peripheral pulses intact, no obvious murmurs noted minimal tenderness to palpation in the substernal area ABDOMEN: Soft, nontender. Positive bowel sounds, no organomegaly, normal bowel sounds EXTREMITIES: Without clubbing, cyanosis, or edema. Pedal pulses intact. Neg ative Homans sign NEUROLOGIC: Normal speech and tone. A&O x 3, moves all extremities, no obvious focal deficits PSYCHIATRIC: Normal affect, normal mood. Stable SKIN: No ulcerations or rashes, good skin turgor, no jaundice VASCULAR: Good capillary refill, neurovascular bundle appears to be intact Labs: Labs: Laboratory Tests Test 07/20/20 15:20 07/20/20 18:50 07/20/20 19:25 White Blood Count 5.7 x10^3/uL (4.0-11.0) Red Blood Count 3.99 x10^6/uL (3.50-5.40) Hemoglobin 13.2 g/dL (12.0-15.5) Hematocrit 38.0 % (36.0-47.0) Mean Corpuscular Volume 95 fL (79-100) Mean Corpuscular Hemoglobin 33 pg (25-35) Mean Corpuscular Hemoglobin Concent 35 g/dL (31-37) Red Cell Distribution Width 13.8 % (11.5-14.5) Platelet Count 180 x10^3/uL (140-400) Neutrophils (%) (Auto) 53 % (31-73) Lymphocytes (%) (Auto) 28 % (24-48) Monocytes (%) (Auto) 13 % (0-9) Eosinophils (%) (Auto) 4 % (0-3) Basophils (%) (Auto) 2 % (0-3) Neutrophils # (Auto) 3.0 x10^3/uL (1.8-7.7) Lymphocytes # (Auto) 1.6 x10^3/uL (1.0-4.8) Monocytes # (Auto) 0.7 x10^3/uL (0.0-1.1) Eosinophils # (Auto) 0.3 x10^3/uL (0.0-0.7) Basophils # (Auto) 0.1 x10^3/uL (0.0-0.2) Prothrombin Time 13.1 SEC (11.7-14.0) Prothromb Time International Ratio 1.0 (0.8-1.1) Activated Partial Thromboplast Time 25 SEC (24-38) D-Dimer (Lisa) 0.67 ug/mlFEU (0.00-0.50) Sodium Level 138 mmol/L (136-145) Potassium Level 3.9 mmol/L (3.5-5.1) Chloride Level 102 mmol/L (98-107) Carbon Dioxide Level 26 mmol/L (21-32) Anion Gap 10 (6-14) Blood Urea Nitrogen 24 mg/dL (7-20) Creatinine 1.2 mg/dL (0.6-1.0) Estimated GFR (Cockcroft-Gault) 42.3 BUN/Creatinine Ratio 20 (6-20) Glucose Level 128 mg/dL (70-99) Lactic Acid Level 1.4 mmol/L (0.4-2.0) Calcium Level 8.7 mg/dL (8.5-10.1) Magnesium Level 2.1 mg/dL (1.8-2.4) Total Bilirubin 0.5 mg/dL (0.2-1.0) Aspartate Amino Transf (AST/SGOT) 22 U/L (15-37) Alanine Aminotransferase (ALT/SGPT) 20 U/L (14-59) Alkaline Phosphatase 58 U/L (46-116) Troponin I Quantitative < 0.017 ng/mL (0.000-0.055) < 0.017 ng/mL (0.000-0.055) HV-Iph-A-Type Natriuretic Peptide 319 pg/mL (0-449) Total Protein 7.1 g/dL (6.4-8.2) Albumin 3.7 g/dL (3.4-5.0) Albumin/Globulin Ratio 1.1 (1.0-1.7) Lipase 121 U/L (73-393) Urine Collection Type Unknown Urine Color Straw Urine Clarity Clear Urine pH 5.5 (<5.0-8.0) Urine Specific [place] 1.010 (1.000-1.030) Urine Protein Negative mg/dL (NEG-TRACE) Urine Glucose (UA) Negative mg/dL (NEG) Urine Ketones (Stick) Negative mg/dL (NEG) Urine Blood Negative (NEG) Urine Nitrite Negative (NEG) Urine Bilirubin Negative (NEG) Urine Urobilinogen Dipstick 0.2 mg/dL (0.2 mg/dL) Urine Leukocyte Esterase Negative (NEG) Urine RBC Rare /HPF (0-2) Urine WBC Rare /HPF (0-4) Urine Squamous Epithelial Cells Few /LPF Urine Bacteria 0 /HPF (0-FEW) Laboratory Tests Test 07/20/20 15:20 07/20/20 18:50 07/20/20 19:25 White Blood Count 5.7 x10^3/uL (4.0-11.0) Red Blood Count 3.99 x10^6/uL (3.50-5.40) Hemoglobin 13.2 g/dL (12.0-15.5) Hematocrit 38.0 % (36.0-47.0) Mean Corpuscular Volume 95 fL (79-100) Mean Corpuscular Hemoglobin 33 pg (25-35) Mean Corpuscular Hemoglobin Concent 35 g/dL (31-37) Red Cell Distribution Width 13.8 % (11.5-14.5) Platelet Count 180 x10^3/uL (140-400) Neutrophils (%) (Auto) 53 % (31-73) Lymphocytes (%) (Auto) 28 % (24-48) Monocytes (%) (Auto) 13 % (0-9) Eosinophils (%) (Auto) 4 % (0-3) Basophils (%) (Auto) 2 % (0-3) Neutrophils # (Auto) 3.0 x10^3/uL (1.8-7.7) Lymphocytes # (Auto) 1.6 x10^3/uL (1.0-4.8) Monocytes # (Auto) 0.7 x10^3/uL (0.0-1.1) Eosinophils # (Auto) 0.3 x10^3/uL (0.0-0.7) Basophils # (Auto) 0.1 x10^3/uL (0.0-0.2) Prothrombin Time 13.1 SEC (11.7-14.0) Prothromb Time International Ratio 1.0 (0.8-1.1) Activated Partial Thromboplast Time 25 SEC (24-38) D-Dimer (Lisa) 0.67 ug/mlFEU (0.00-0.50) Sodium Level 138 mmol/L (136-145) Potassium Level 3.9 mmol/L (3.5-5.1) Chloride Level 102 mmol/L (98-107) Carbon Dioxide Level 26 mmol/L (21-32) Anion Gap 10 (6-14) Blood Urea Nitrogen 24 mg/dL (7-20) Creatinine 1.2 mg/dL (0.6-1.0) Estimated GFR (Cockcroft-Gault) 42.3 BUN/Creatinine Ratio 20 (6-20) Glucose Level 128 mg/dL (70-99) Lactic Acid Level 1.4 mmol/L (0.4-2.0) Calcium Level 8.7 mg/dL (8.5-10.1) Magnesium Level 2.1 mg/dL (1.8-2.4) Total Bilirubin 0.5 mg/dL (0.2-1.0) Aspartate Amino Transf (AST/SGOT) 22 U/L (15-37) Alanine Aminotransferase (ALT/SGPT) 20 U/L (14-59) Alkaline Phosphatase 58 U/L (46-116) Troponin I Quantitative < 0.017 ng/mL (0.000-0.055) < 0.017 ng/mL (0.000-0.055) IE-Bph-U-Type Natriuretic Peptide 319 pg/mL (0-449) Total Protein 7.1 g/dL (6.4-8.2) Albumin 3.7 g/dL (3.4-5.0) Albumin/Globulin Ratio 1.1 (1.0-1.7) Lipase 121 U/L (73-393) Urine Collection Type Unknown Urine Color Straw Urine Clarity Clear Urine pH 5.5 (<5.0-8.0) Urine Specific [place] 1.010 (1.000-1.030) Urine Protein Negative mg/dL (NEG-TRACE) Urine Glucose (UA) Negative mg/dL (NEG) Urine Ketones (Stick) Negative mg/dL (NEG) Urine Blood Negative (NEG) Urine Nitrite Negative (NEG) Urine Bilirubin Negative (NEG) Urine Urobilinogen Dipstick 0.2 mg/dL (0.2 mg/dL) Urine Leukocyte Esterase Negative (NEG) Urine RBC Rare /HPF (0-2) Urine WBC Rare /HPF (0-4) Urine Squamous Epithelial Cells Few /LPF Urine Bacteria 0 /HPF (0-FEW) Images: Images CXR Impression: 1. Patchy left basilar opacity, likely atelectasis. Assessment/Plan Assessment/Plan Chest pain concerning for unstable angina/NSTEMI versus STEMI Acute kidney injury due to vasomotor nephropathy Hypertension Heart score of 5 Continue aspirin, consider Plavix if intermediate risk will defer this to cardiology Cardiology consulted for predischarge stress testing or left heart cath Continue nitroglycerin as needed for pain Continue beta-brad if blood pressures allow Continue high intensity statins IV morphine as needed Consider Lovenox Maintain O2 sats between 88 to 95% Trend troponins Repeat EKG in the a.m. Continue telemetry monitoring Monitor for electrolyte abnormalities Avoid NSAIDs Justifications for Admission Other Justification MARIKA ZAMORA MD Jul 20, 2020 21:53
[2020-07-20] MEDS ORDERED: ENOXAPARIN 30 MG/0.3 ML SYRINGE. SQ ONE (22:00)
--- NOTE | 2020-07-20 22:01 | NUR ---
The patient, BECKIE HUFF, 89 y/o, F admitted by MARIKA ZAMORA MD, was given written information regarding hospital policies, unit procedures and contact persons. pivoted to bed. pt arrived at 2152 to room 652 confused unable to do admission with her. rambles on the same subject. unable to refocus her. assured her that she is safe. and not to worry her daughters are handling everything. Valuables were checked and documented in the emr lcrn.
[2020-07-20 23:13] VITALS: BP 185/62
[2020-07-21 03:16] VITALS: BP 167/68
[2020-07-21] MEDS ORDERED: LATA2.5D2 EACHEYE (03:16)
[2020-07-21] MEDS ORDERED: OMEP20TA8 PO (03:16)
[2020-07-21] MEDS ORDERED: LOSA-73 PO (03:16)
[2020-07-21] MEDS ORDERED: LACT1CAP29 PO (03:16)
[2020-07-21] MEDS ORDERED: DIPH25CA58 PO ×2 (03:16)
[2020-07-21] MEDS ORDERED: WITC1MED TP (03:16)
[2020-07-21] MEDS ORDERED: HYDR12.58 PO (03:16)
[2020-07-21] MEDS ORDERED: ACET500T68 PO ×2 (03:16)
[2020-07-21] MEDS ORDERED: ONDA4TAB12 PO (03:16)
[2020-07-21 04:49] LABS: BASO # 0.1 x10^3/uL (0.0-0.2); BASO % 1 % (0-3); EOS # 0.3 x10^3/uL (0.0-0.7); EOS % 7 % (0-3); HEMATOCRIT 37.7 % (36.0-47.0); LYMPH # 1.8 x10^3/uL (1.0-4.8); LYMPH % 38 % (24-48); MEAN CORPUSCULAR HEMOGLOBIN 33 pg (25-35); MEAN CORPUSCULAR HGB CONC 34 g/dL (31-37); MEAN CORPUSCULAR VOLUME 95 fL (79-100); MONO # 0.8 x10^3/uL (0.0-1.1); MONO % 16 % (0-9); NEUT # 1.8 x10^3/uL (1.8-7.7); NEUT % 38 % (31-73); PLATELET COUNT 170 x10^3/uL (140-400); RED BLOOD COUNT 3.98 x10^6/uL (3.50-5.40); RED CELL DISTRIBUTION WIDTH 13.5 % (11.5-14.5); WHITE BLOOD COUNT 4.7 x10^3/uL (4.0-11.0)
[2020-07-21 05:19] LABS: CALCIUM 8.8 mg/dL (8.5-10.1); GFR 52.2; MAGNESIUM 2.1 mg/dL (1.8-2.4); PHOSPHORUS 3.2 mg/dL (2.6-4.7); POTASSIUM 3.5 mmol/L (3.5-5.1)
[2020-07-21 05:59] LABS: CHOLESTEROL/HDL RATIO 6.2
[2020-07-21] MEDS ORDERED: LEVOTHYROXINE 112 MCG TABLET PO SCH (06:00)
[2020-07-21 07:00] VITALS: BP 165/79
[2020-07-21] MEDS ORDERED: POTASSIUM CHLORIDE 20 MEQ TABLET.ER. PO SCH ×2 (08:00→18:00)
[2020-07-21] MEDS ORDERED: ASPIRIN ENTERIC COATED 325 MG TABLET.DR. PO SCH (08:00)
[2020-07-21] MEDS ORDERED: MAGNESIUM OXIDE 400 MG TABLET PO SCH (08:00)
[2020-07-21] MEDS ORDERED: CLOPIDOGREL BISULFATE 75 MG TABLET PO SCH (08:00)
[2020-07-21] MEDS ORDERED: VERAPAMIL SR 120 MG TABLET.ER. PO SCH (09:00)
[2020-07-21] MEDS ORDERED: FAMOTIDINE 20 MG TABLET. PO SCH (09:00)
--- NOTE | 2020-07-21 09:14 | PDOC2 ---
VILMA ROSE AIR QUALITY TECHNICIAN 07/21/20 0914: CARDIAC CONSULT DATE OF CONSULT Date of Consult DATE: 07/21/20 TIME: 09:05 REASON FOR CONSULT Reason for Consult: Chest pain REFERRING PHYSICIAN Referring Physician: Abdoulaye SOURCE Source: Chart review, Patient HISTORY OF PRESENT ILLNESS HISTORY OF PRESENT ILLNESS This is an 89 yo female admitted for complains of chest pain. She has had difficult 2020 so far since 12/2019 after her fall. She went from independent to needing further supervision. She has been in rehab for a while and recently moved to [facility] living [facility] but has been on strict lock down due to covid outbreak and her in person communication with her family members have been limited. Has been noted with anxiety and at the assisted liveing facility she complained of sharp chest pain and some SOA but this did not last. No mention of any nausea or vomiting. She is significantly [employer] and I discussed further details from her daughter who basically oversees her care. No significant peripheral edema. Presently denies any chest pain or SOA and actually laying down with no SOA but tired as she did not sleep much overnight and has to be transferred to another room to further quiet her surrounding and minimize lighting. She is currently not complaining of any discomfort. PAST MEDICAL HISTORY Past Medical History Cardiovascular: HTN, Hyperlipidemia, paflutter CENTRAL NERVOUS SYSTEM: CVA, Vertigo (meniere), GI: GERD Heme/Onc: Cancer (breast) Musculoskeletal: Other (RA lymphedema), fall ENT: Other ([employer]; glaucoma) Endocrine: Hypothyroidism Dermatology: Other (RA cellulitis) PAST SURGICAL HISTORY Past Surgical History Appendectomy, Cholecystectomy, Cataract Removal, Total knee replacement (right), Hysterectomy, Other (back surgery), right arm surgery FAMILY HISTORY Family History noncontributory SOCIAL HISTORY Smoke: No ALCOHOL: none Drugs: None Lives: with Family CURRENT MEDICATIONS CURRENT MEDICATIONS Current Medications Medications (Trade) Dose Ordered Sig/Jason Route PRN Reason Start Time Stop Time Status Last Admin Dose Admin Aspirin (Ecotrin) 325 mg DAILYWBKFT PO 07/21/20 08:00 07/21/20 08:47 Enoxaparin Sodium (Lovenox 30mg Syringe) 30 mg 1X ONCE SQ 07/20/20 22:00 07/20/20 22:01 DC 07/21/20 00:51 Levothyroxine Sodium (Synthroid) 112 mcg DAILY06 PO 07/21/20 06:00 07/21/20 06:21 Potassium Chloride (Klor-Con) 20 meq TIDWMEALS PO 07/21/20 08:00 07/21/20 08:47 Magnesium Oxide (Magnesium Oxide) 400 mg DAILY08 PO 07/21/20 08:00 07/21/20 08:47 Famotidine (Pepcid) 20 mg DAILY PO 07/21/20 09:00 07/21/20 08:46 Verapamil HCl (Calan Sr) 240 mg BID PO 07/21/20 09:00 07/21/20 08:47 ALLERGIES ALLERGIES: Coded Allergies: Penicillins (Verified Allergy, Intermediate, 01/10/20) Has tolerated ceftriaxone and merrem etodolac (Verified Allergy, Intermediate, 08/02/15) meperidine (Verified Allergy, Intermediate, 08/02/15) morphine (Verified Allergy, Intermediate, 08/02/15) oxycodone (Verified Allergy, Intermediate, 08/02/15) pentazocine (Verified Allergy, Intermediate, 08/02/15) ROS Review of System limited, [employer], discussed detials with daughter. See HPI PHYSICAL EXAM General: Alert, Oriented X3, Cooperative, No acute distress HEENT: Atraumatic, Mucous membr. moist/pink Lungs: Other (diminished bases) Heart: Regular rate (SR no ectopies), Other (distant) Abdomen: Soft Extremities: No cyanosis, No edema Skin: No breakdown, No significant lesion Neuro: Normal speech, Sensation intact Psych/Mental Status: Mental status NL MUSCULOSKELETAL: Osteoarthritic changes both hands VITALS/I&O VITALS/I&O: Vital Signs Date Time Temp Pulse Resp B/P (MAP) Pulse Ox O2 Delivery O2 Flow Rate FiO2 07/21/20 08:47 57 167/68 07/21/20 07:00 96.8 18 98 Room Air 96.8 07/20/20 23:13 2.0 I & O 07/20/20 07/20/20 07/21/20 15:00 23:00 07:00 Intake Total 0 ml 200 ml Output Total 950 ml Balance 0 ml -750 ml LABS Lab: Laboratory Tests Test 07/20/20 15:20 07/20/20 18:50 07/20/20 19:25 07/20/20 21:00 White Blood Count 5.7 x10^3/uL (4.0-11.0) Red Blood Count 3.99 x10^6/uL (3.50-5.40) Hemoglobin 13.2 g/dL (12.0-15.5) Hematocrit 38.0 % (36.0-47.0) Mean Corpuscular Volume 95 fL (79-100) Mean Corpuscular Hemoglobin 33 pg (25-35) Mean Corpuscular Hemoglobin Concent 35 g/dL (31-37) Red Cell Distribution Width 13.8 % (11.5-14.5) Platelet Count 180 x10^3/uL (140-400) Neutrophils (%) (Auto) 53 % (31-73) Lymphocytes (%) (Auto) 28 % (24-48) Monocytes (%) (Auto) 13 % (0-9) H Eosinophils (%) (Auto) 4 % (0-3) H Basophils (%) (Auto) 2 % (0-3) Neutrophils # (Auto) 3.0 x10^3/uL (1.8-7.7) Lymphocytes # (Auto) 1.6 x10^3/uL (1.0-4.8) Monocytes # (Auto) 0.7 x10^3/uL (0.0-1.1) Eosinophils # (Auto) 0.3 x10^3/uL (0.0-0.7) Basophils # (Auto) 0.1 x10^3/uL (0.0-0.2) Prothrombin Time 13.1 SEC (11.7-14.0) Prothrombin Time INR 1.0 (0.8-1.1) Activated Partial Thromboplast Time 25 SEC (24-38) D-Dimer (Lisa) 0.67 ug/mlFEU (0.00-0.50) H Sodium Level 138 mmol/L (136-145) Potassium Level 3.9 mmol/L (3.5-5.1) Chloride Level 102 mmol/L (98-107) Carbon Dioxide Level 26 mmol/L (21-32) Anion Gap 10 (6-14) Blood Urea Nitrogen 24 mg/dL (7-20) H Creatinine 1.2 mg/dL (0.6-1.0) H Estimated GFR (Cockcroft-Gault) 42.3 BUN/Creatinine Ratio 20 (6-20) Glucose Level 128 mg/dL (70-99) H Lactic Acid Level 1.4 mmol/L (0.4-2.0) Calcium Level 8.7 mg/dL (8.5-10.1) Magnesium Level 2.1 mg/dL (1.8-2.4) Total Bilirubin 0.5 mg/dL (0.2-1.0) Aspartate Amino Transferase (AST) 22 U/L (15-37) Alanine Aminotransferase (ALT) 20 U/L (14-59) Alkaline Phosphatase 58 U/L (46-116) Troponin I Quantitative < 0.017 ng/mL (0.000-0.055) < 0.017 ng/mL (0.000-0.055) < 0.017 ng/mL (0.000-0.055) CS-Ytm-O-Type Natriuretic Peptide 319 pg/mL (0-449) Total Protein 7.1 g/dL (6.4-8.2) Albumin 3.7 g/dL (3.4-5.0) Albumin/Globulin Ratio 1.1 (1.0-1.7) Lipase 121 U/L (73-393) Urine Collection Type Unknown Urine Color Straw Urine Clarity Clear Urine pH 5.5 (<5.0-8.0) Urine Specific [place] 1.010 (1.000-1.030) Urine Protein Negative mg/dL (NEG-TRACE) Urine Glucose (UA) Negative mg/dL (NEG) Urine Ketones (Stick) Negative mg/dL (NEG) Urine Blood Negative (NEG) Urine Nitrite Negative (NEG) Urine Bilirubin Negative (NEG) Urine Urobilinogen Dipstick 0.2 mg/dL (0.2 mg/dL) Urine Leukocyte Esterase Negative (NEG) Urine RBC Rare /HPF (0-2) Urine WBC Rare /HPF (0-4) Urine Squamous Epithelial Cells Few /LPF Urine Bacteria 0 /HPF (0-FEW) Thyroid Stimulating Hormone (TSH) 1.801 uIU/mL (0.358-3.74) Test 07/21/20 03:00 White Blood Count 4.7 x10^3/uL (4.0-11.0) Red Blood Count 3.98 x10^6/uL (3.50-5.40) Hemoglobin 13.0 g/dL (12.0-15.5) Hematocrit 37.7 % (36.0-47.0) Mean Corpuscular Volume 95 fL (79-100) Mean Corpuscular Hemoglobin 33 pg (25-35) Mean Corpuscular Hemoglobin Concent 34 g/dL (31-37) Red Cell Distribution Width 13.5 % (11.5-14.5) Platelet Count 170 x10^3/uL (140-400) Neutrophils (%) (Auto) 38 % (31-73) Lymphocytes (%) (Auto) 38 % (24-48) Monocytes (%) (Auto) 16 % (0-9) H Eosinophils (%) (Auto) 7 % (0-3) H Basophils (%) (Auto) 1 % (0-3) Neutrophils # (Auto) 1.8 x10^3/uL (1.8-7.7) Lymphocytes # (Auto) 1.8 x10^3/uL (1.0-4.8) Monocytes # (Auto) 0.8 x10^3/uL (0.0-1.1) Eosinophils # (Auto) 0.3 x10^3/uL (0.0-0.7) Basophils # (Auto) 0.1 x10^3/uL (0.0-0.2) Sodium Level 139 mmol/L (136-145) Potassium Level 3.5 mmol/L (3.5-5.1) Chloride Level 104 mmol/L (98-107) Carbon Dioxide Level 21 mmol/L (21-32) Anion Gap 14 (6-14) Blood Urea Nitrogen 21 mg/dL (7-20) H Creatinine 1.0 mg/dL (0.6-1.0) Estimated GFR (Cockcroft-Gault) 52.2 Glucose Level 90 mg/dL (70-99) Calcium Level 8.8 mg/dL (8.5-10.1) Phosphorus Level 3.2 mg/dL (2.6-4.7) Magnesium Level 2.1 mg/dL (1.8-2.4) Triglycerides Level 227 mg/dL (0-150) H Cholesterol Level 260 mg/dL (0-200) H LDL Cholesterol, Calculated 173 mg/dL (0-100) H VLDL Cholesterol, Calculated 45 mg/dL (0-40) H Non-HDL Cholesterol Calculated 218 mg/dL (0-129) H HDL Cholesterol 42 mg/dL (40-60) Cholesterol/HDL Ratio 6.2 Laboratory Tests 07/20/20 15:20 07/21/20 03:00 Laboratory Tests 07/20/20 15:20 07/21/20 03:00 ECHOCARDIOGRAM ECHOCARDIOGRAM <Conclusion> The left ventricle is normal size. The left ventricular systolic function is normal and the ejection fraction is within normal range. The Ejection Fraction is 60-65%. There is no significant aortic valvular stenosis. Doppler and Color Flow revealed no significant aortic regurgitation. Doppler and Color-flow revealed trace mitral regurgitation. Doppler and Color Flow revealed trace tricuspid regurgitation. There is no evidence of significant pericardial effusion. DATE: 01/02/18 1230 STRESS TEST STRESS TEST Conclusion 1. No electrocardiographic changes suggestive of myocardial ischemia with pharmacological stress. 2. No significant perfusion defects to suggest myocardial ischemia or scar. 3. Normal wall motion and wall thickening with an ejection fraction of 80%. 4. Scan indicates low risk for future cardiac events. DATE: 03/27/162019 ASSESSMENT/PLAN ASSESSMENT/PLAN 1. Atypical chest pain: lexiscan and TTE scheduled outpt on 08/07 trops nml no acute EKG changes, suspect from anxiety 2. PUI 3. HTN: labile episodes 4. HLP: not on goal LDL 173 5. Hypothyroidism: on replacement 6. [place]one Aflutter: Likely precipitated by previous ortho surgery 12/2019: SR recent MCOT revealed low burden, deemed poor candidate for OAC 7. Anxiety 8. Hx of hypokalemia: hence K replacement 9. Hx of CVA Recommendations Continue current regimen. Restart her home losartan 50/HCTZ 12.5 and Verapamil. Ok to be marginally elevated. Will likely decrease dosing will discuss further with primary rod buster given her advanced age Await PCR for covid ECASA 81 mg po daily, start on 20 mg lipitor. Continue K replacement. Recommend BMP/Mg on Friday DC back to assisted living facility and continue with scheduled MPI/TTE on 08/07. Discussed with daughter HILARYKOBY MD 07/21/20 1420: CARDIAC CONSULT ASSESSMENT/PLAN ASSESSMENT/PLAN Patient seen and examined. Agree with SEARCH MARKETING ANALYST's assessment and plan. Chest pain with atypical features. Myocardial infarction has been ruled out. Agree with resuming home antihypertensives for better blood pressure control. Plan for outpatient 2D echo and Lexiscan nuclear stress test as previously scheduled. Thank you for your consultation VILMA ROSE APRN Jul 21, 2020 09:14 KOBY RICHARD MD Jul 21, 2020 14:20
[2020-07-21 11:00] VITALS: BP 146/65
[2020-07-21] MEDS ORDERED: ATOR20TA58 PO (13:24)
[2020-07-21] MEDS ORDERED: VERA120T2 PO (13:26)
--- NOTE | 2020-07-21 13:27 | DISCH ---
DISCHARGE INSTRUCTIONS Condition on Discharge Condition on Discharge: Stable Activity After Discharge Activity Instructions for Disc: No restrictions, Resume previous activity, Activity as tolerated Driving Instructions after Dis: Do not drive today Weight Bearing Status after Di: As tolerated Diet after Discharge Diet after Discharge: Cardiac Checks after Discharge Checks after discharge: Check blood press - daily Follow-Up Follow up with: PCP within 1 week of discharge Follow Up With: Plan for stress test on 08/07/2020 Treatment/Equipment after DC Adaptive Equipment Issued: None MARIKA ZAMORA MD Jul 21, 2020 13:27
[2020-07-21] MEDS ORDERED: VERA240C2 PO (14:36)
[2020-07-21] MEDS ORDERED: ASPI-886 PO (14:38)
[2020-07-21] MEDS ORDERED: POTA20TA4 PO (14:40)
--- NOTE | 2020-07-21 16:08 | NUR ---
PT LEFT VIA WHEELCHAIR TRANSPORT TO [facility] AT MAIN ENTRANCE AT APPROX 1515. PTS DAUGHTER SHEKHAR CONTINUALLY UPDATED THROUGHOUT THE DAY. PTS DAUGHTER ALSO GIVEN DISCHARGE INFORMATION REGARDING, FOLLOW UP APPTS, MEDICATION CHANGES AND LABS THAT NEED TO BE DRAWN ON FRIDAY. PATIENTS DAUGHTER STATES UNDERSTANDING.
--- NOTE | 2020-07-21 17:19 | NUR ---
SW following. Spoke with RN and reviewed chart. Pt to discharge back to [facility] via transportation from the dtr per RN. Pt on room air and oral medications. Pt COVID negative. No SW needs per RN.
[2020-07-21] MEDS ORDERED: ATORVASTATIN CALCIUM 20 MG TABLET PO SCH (21:00)
[2020-07-22] MEDS ORDERED: ASPIRIN ENTERIC COATED 81 MG TABLET.DR. PO SCH (08:00)
[2020-07-22] MEDS ORDERED: VERAPAMIL SR 120 MG TABLET.ER. PO SCH (09:00)
--- NOTE | 2020-07-22 21:11 | PDOC3 ---
[facility]-Discharge Summary Date of Admission: Date of Admission: Jul 20, 2020 Date of Discharge: Date of Discharge: Jul 21, 2020 Admission Diagnosis: Admitting Diagnosis: Chest pain concerning for unstable angina/NSTEMI versus STEMI Acute kidney injury due to vasomotor nephropathy Hypertension Discharge Diagnosis: Discharge Diagnosis: Chest pain concerning for unstable angina/NSTEMI versus STEMI Acute kidney injury due to vasomotor nephropathy Hypertension negative for covid infection Consults: Consults: Cardiology Hospital Course: Hospital Course: 89-year-old female with past medical history of atrial fibrillation, hypertension, cerebellar stroke in 2011 who presents with 3-day progressively worsening sharp chest pain that substernal in nature and radiates towards the middle. There is no associated nausea or vomiting. There is no alleviating or exacerbating factors. Patient's states that pain is not during any particular position or during exertion. 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 Patient currently does not have any chest pain. Denies fevers, shortness of breath, abdominal pain, diarrhea, weakness, syncope, or palpitations Patient admitted for cardiac evaluation for her chest pain. Recommended to f/u as an outpatient for her 2D echo and stress test as scheduled. Continue current regimen. Restart her home losartan 50/HCTZ 12.5 and Verapamil. Ok to be marginally elevated. Will likely decrease dosing will discuss further with primary business machine mechanic given her advanced age. Patient was chest pain free on day of her discharge and was willing to complete her cardiac evaluation once discharged. The rest of her hospital course was uneventful. Disposition: Disposition/Orders: D/C to Home Activity: Activity: Resume previous activity Diet: Diet: Cardiac Medications: Home Meds Active Scripts Potassium Chloride (POTASSIUM CHLORIDE ) 20 Meq Tablet.er, 20 MEQ PO BIDAFTMEAL for SUPPLEMENT for 30 Days, #60 TAB.SR 3 Refills Prov:VILMA ROSE DRAW OPERATOR 07/21/20 Aspirin (ASPIRIN EC) 81 Mg Tablet.dr, 1 TAB PO DAILY for afltter for 30 Days, #30 TAB 3 Refills Prov:VILMA ROSE DRAW OPERATOR 07/21/20 Verapamil Hcl (VERAPAMIL ER) 240 Mg Cap24h.pel, 1 CAP PO DAILY for htn for 30 Days, #30 CAP 3 Refills Prov:VILMA ROSE DRAW OPERATOR 07/21/20 Atorvastatin Calcium (ATORVASTATIN CALCIUM) 20 Mg Tablet, 20 MG PO QHS for cholesterol for 30 Days, #30 TAB Prov:MARIKA ZAMORA MD 07/21/20 Reported Medications Yady Steen (PREPARATION H) 1 Each Med..pad, 1 EACH TP PRN Q6HRS PRN for PAIN, PAD 07/21/20 Diphenhydramine Hcl (BENADRYL) 25 Mg Capsule, 25 MG PO PRN Q6HRS PRN for ITCHING, CAP 07/21/20 Acetaminophen (ACETAMINOPHEN) 500 Mg Tablet, 500 MG PO PRN Q6HRS PRN for PAIN, TAB 07/21/20 Omeprazole (OMEPRAZOLE) 20 Mg Tablet.dr, 1 TAB PO DAILY for REFLUX, #90 TAB 3 Refills 07/21/20 Losartan Potassium (LOSARTAN POTASSIUM) 50 Mg Tablet, 50 MG PO DAILY for HYPERTENSION, TAB 07/21/20 Latanoprost (XALATAN) 2.5 Ml Drops, 1 DROP EACHEYE QHS for GLACOMA, #7.5 ML 3 Refills 07/21/20 Hydrochlorothiazide (HYDROCHLOROTHIAZIDE TABLET) 12.5 Mg Tablet, 12.5 MG PO DAILY for DIURETIC, TAB 0 Refills 07/21/20 Diphenhydramine Hcl (BENADRYL) 25 Mg Capsule, 1 CAP PO QHS for SLEEP for 30 Days, #30 CAP 0 Refills 07/21/20 Lactobacillus Combo No.10 (PROBIOTIC) 1 Each Capsule, 1 TAB PO DAILY for SUPPLEMEMT for 30 Days, #30 TAB 0 Refills 07/21/20 Acetaminophen (ACETAMINOPHEN) 500 Mg Tablet, 500 MG PO BID for ARTHRITIS, TAB 07/21/20 Garlic (GARLIC) 1,000 Mg Capsule, 1000 MG PO DAILY08 05/10/14 Flaxseed Oil (FLAX SEED OIL) 1,000 Mg Capsule, 1000 MG PO TID 05/10/14 [place]-3/Dha/Epa/Fish Oil (FISH OIL OMEGA-3 SOFTGEL) 1 Each Capsule.dr, 1 EACH PO BIDAC 05/10/14 Multivits-Min/Fa/Lycopene/Lut (CENTRUM SILVER TABLET) 1 Each Tablet, 1 EACH PO DAILY08 05/10/14 Calcium Citrate/Vitamin D3 (CALCIUM CITRATE - VIT D3 TAB) 1 Each Tablet, 1 EACH PO DAILY08 05/10/14 Latanoprost (LATANOPROST) 2.5 Ml Drops, 1 DROP OP HS, EACH 05/10/14 Levothyroxine Sodium (LEVOTHYROXINE SODIUM) 112 Mcg Tablet, 112 MCG PO DAILYAC for THYROID SUPPLEMENT, #30 TAB 0 Refills 05/10/14 Discontinued Reported Medications Ondansetron (ONDANSETRON ODT) 4 Mg Tab.rapdis, 1 TAB PO PRN Q6-8HRS for NAUSEA, #16 TAB 07/21/20 Ranitidine Hcl (RANITIDINE HCL) 150 Mg Capsule, 150 MG PO DAILY for gi gas, TAB 01/09/20 Magnesium Oxide (MAGNESIUM) 400 Mg Capsule, 400 MG PO DAILY08 05/10/14 Verapamil Hcl (VERAPAMIL HCL) 120 Mg Tablet, 240 MG PO TIDWMEALS, TAB 05/10/14 Scheduled Acetaminophen (Acetaminophen), 500 MG PO BID, (Reported) Aspirin (Aspirin Ec), 1 TAB PO DAILY Atorvastatin Calcium (Atorvastatin Calcium), 20 MG PO QHS Calcium Citrate/Vitamin D3 (Calcium Citrate - Vit D3 Tab), 1 EACH PO DAILY08, (Reported) Diphenhydramine Hcl (Benadryl), 1 CAP PO QHS, (Reported) Flaxseed Oil (Flax Seed Oil), 1,000 MG PO TID, (Reported) Garlic (Garlic), 1,000 MG PO DAILY08, (Reported) Hydrochlorothiazide (Hydrochlorothiazide Tablet), 12.5 MG PO DAILY, (Reported) Lactobacillus Combo No.10 (Probiotic), 1 TAB PO DAILY, (Reported) Latanoprost (Latanoprost), 1 DROP OP HS, (Reported) Latanoprost (Xalatan), 1 DROP EACHEYE QHS, (Reported) Levothyroxine Sodium (Levothyroxine Sodium), 112 MCG PO DAILYAC, (Reported) Losartan Potassium (Losartan Potassium), 50 MG PO DAILY, (Reported) Multivits-Min/Fa/Lycopene/Lut (Centrum Silver Tablet), 1 EACH PO DAILY08, (Reported) [place]-3/Dha/Epa/Fish Oil (Fish Oil [place]-3 Softgel), 1 EACH PO BIDAC, (Reported) Omeprazole (Omeprazole), 1 TAB PO DAILY, (Reported) Potassium Chloride (Potassium Chloride ), 20 MEQ PO BIDAFTMEAL Verapamil Hcl (Verapamil Er), 1 CAP PO DAILY Scheduled PRN Acetaminophen (Acetaminophen), 500 MG PO PRN Q6HRS PRN for PAIN, (Reported) Diphenhydramine Hcl (Benadryl), 25 MG PO PRN Q6HRS PRN for ITCHING, (Reported) Yady Steen (Preparation H), 1 EACH TP PRN Q6HRS PRN for PAIN, (Reported) Discontinued Medications Magnesium Oxide (Magnesium), 400 MG PO DAILY08, (Reported) Ondansetron (Ondansetron Odt), 1 TAB PO PRN Q6-8HRS, (Reported) Ranitidine Hcl (Ranitidine Hcl), 150 MG PO DAILY, (Reported) Verapamil Hcl (Verapamil Hcl), 240 MG PO TIDWMEALS, (Reported) Total Time: Total Time: Total time spent was 28 minutes in preparing scripts, discharge planning with SW and RN, and preparing this discharge summary. Justicifation of Admission Dx: Justifications for Admission: Justification of Admission Dx: Yes MARIKA ZAMORA MD Jul 22, 2020 21:11
== END 2020-07-21 15:00 | disposition home or self-care (01) ==
LOC: ER 15:02 → 6 SOUTH 18:18
PROVIDERS: ADMIT Internal Medicine; ATTEND Internal Medicine
DX: R07.89 Other chest pain (principal); Z20.828 Contact with and (suspected) exposure to other viral communicable diseases; N17.9 Acute kidney failure, unspecified; I10 Essential (primary) hypertension; I48.91 Unspecified atrial fibrillation; R74.8 Abnormal levels of other serum enzymes; E03.9 Hypothyroidism, unspecified; E78.5 Hyperlipidemia, unspecified; F41.9 Anxiety disorder, unspecified; H91.90 Unspecified hearing loss, unspecified ear; H40.9 Unspecified glaucoma; Z90.49 Acquired absence of other specified parts of digestive tract; Z79.82 Long term (current) use of aspirin; Z79.02 Long term (current) use of antithrombotics/antiplatelets; Z90.710 Acquired absence of both cervix and uterus; Z86.73 Personal history of transient ischemic attack (TIA), and cerebral infarction without residual deficits; Z85.3 Personal history of malignant neoplasm of breast; Z79.899 Other long term (current) drug therapy; Z85.828 Personal history of other malignant neoplasm of skin; Z96.651 Presence of right artificial knee joint
CPT/HCPCS: 36415; 71045; 80048; 80053; 80061; 81001; 83605; 83690; 83735; 83880; 84100; 84443; 84484; 85025; 85379; 85610; 85730; 93005; 96372; 99285; G0378; J1650; U0003; G0379

== ENCOUNTER → 2020-08-07 | Outpatient (CLI) | payer MEDICARE ==
[2020-07-21 11:00] VITALS: BP 146/65
[~2020-08-07] MED LIST changes: +ACET500T68 PO; +ASPI-886 PO; +ATOR20TA58 PO; +DIPH25CA58 PO; +HYDR12.58 PO; +LACT1CAP29 PO; +LATA2.5D2 EACHEYE; +LOSA-73 PO; +OMEP20TA8 PO; +ONDA4TAB12 PO; +REGADENOSON 0.4 MG/5 ML DISP.SYRIN. IV ONE; +VERA120T2 PO; +VERA240C2 PO; +WITC1MED TP
--- NOTE | 2020-08-07 15:57 | RAD ---
MR#: [id number] Date of Study: 08/07/2020 Ordering Physician: KOBY RICHARD Referring Physician: YESSICA PALU Tech: HORTENSIA Paz APPROVED REPORT Test Type: Pharmacological Stress Nurse/Tech: Aditi Mckeon R.N. Test Indications: c/p Cardiac History: htn Medications: See Electronic Medical Record Medical History: See Electronic Medical Record Resting ECG: SR Resting Heart Rate: 67 bpm Resting Blood Pressure: 166/67mmHg Pretest Chest Pain: No chest pain Nurse/Tech Notes S1S2, lungs CTA Consent: The procedure was explained to the patient in lay terms. Informed consent was witnessed. Osman eout was entered into [employer]. History and Stress Test performed by RT Anam (R) (N) Pharm. Details Pharmacologic stress testing was performed using 0.4mg per 5ml of regadenoson given intravenously ove r 7-10 seconds. Stress Symptoms No chest pain or symptoms. POST EXERCISE Reason for Termination: Infusion complete Max HR: 89 bpm Max Blood Pressure: 153/54mmHg Blood Pressure response to exercise: Normal blood pressure response during stress. Heart Rate response to exercise: wnl Chest Pain: No. Arrhythmia: No. ST Change: No. INTERPRETATION Stress EKG Conclusion: Baseline EKG showed sinus rhythm. No ischemic changes at peak stress. No arr hythmias. Imaging Protocol IMAGE PROTOCOL: Rest Tc-99m/stress Tc-99m 1 day Rest: Stress: Viability: Radiopharm.Tc99m OmeddjhdoVf94e Sestamibi Dose10.5mCi 31mCi Duration 15min. 10min. Img Date 08/07/2020 08/07/2020 Inj-Img Lsow32qlb. 60min. Rest Admin Site:IV - Left ForearmAdministrator:RT Anam (R)(N) Stress Admin Site: IV - Left ForearmAdministrator: RT Anam (R)(N) STRESS DATA End Diast. Vol.37.0mlAv. Heart Rate74.0bpm End Syst. Vol.1.0mlCO Index BSA0.0L/min Myocardial Mass86.0gEject. Xhunvbyk99.0% Stress Rates Pk. Fill Rate3.41EDV/secLVtime Pk. Fill 197.77msec Pk. Empty Rate6.06ESV/secLVtime Pk. Pyjbk049.83msec / Pk. Fill1.44EDV/sec Stress Scores Regional WT0.00Summed WT1.00 Regional WM0.00Summed WM0.00 Study quality was good. Left Ventricular size was Normal at Rest and Stress. Lung uptake was . Left Ventricular ejection fraction is >80%. The rest and stress images show normal perfusion, normal contraction and thickening. LV Perf. Quant 17 Seg. SSS0.00 17 Seg. SRS3.00 17 Seg. SDS0.00 Stress Defect Extent (% LAD)0.00Rest Defect Extent (% LAD)0.00Rev. Defect Extent (% LAD)0.00 Stress Defect Extent (% LCX) 0.00Rest Defect Extent (% LCX)13.80Rev. Defect Extent (% LCX)0.00 Stress Defect Extent (% RCA)0.00Rest Defect Extent (% RCA)0.00Rev. Defect Extent (% RCA)0.00 Stress Defect Extent (% ANDER)0.00Rest Defect Extent (% ANDER)2.40Rev. Defect Extent (% ANDER)0.00 Conclusion 1. Regadenoson cardioisotope stress test did not show any evidence of ischemia or infarct. 2. Normal left ventricular systolic function with ejection fraction calculated at >80%. 3. Low risk for cardiac events. Signed by : Koby Richard, Electronically Approved : 08/07/2020 15:57:39
--- NOTE | 2020-08-07 16:15 | CARD ---
MR#: [id number] Date of Study: 08/07/2020 Ordering Physician: KOBY ABBOTT, Referring Physician: KOBY ABBOTT, Tech: Annalise Alfaro APPROVED REPORT EXAM: Two-dimensional and M-mode echocardiogram with Doppler and color Doppler. Other Information Quality : AverageHR: 72bpm INDICATION Atrial Fibrillation 2D DIMENSIONS RVDd2.8 (2.9-3.5cm)Left Atrium(2D)3.5 (1.6-4.0cm) IVSd1.0 (0.7-1.1cm)LVDd4.4 (3.9-5.9cm) LVOT Diameter2.0 (1.8-2.4cm)PWd0.8 (0.7-1.1cm) LVDs2.1 (2.5-4.0cm)FS (%) 52.5 % SV74.3 mlLVEF(%)83.7 (>50%) Aortic Valve AoV Peak Henry.117.3cm/sAoV VTI26.1cm AO Peak GR.5.5mmHgLVOT Peak Henry.79.4cm/s LVOT VTI 18.48cmAO Mean GR.3mmHg CAYDEN (VMAX)1.71in3NXR (VTI)2.27cm2 Mitral Valve MV E Pphfepun56.8cm/sMV DECEL WEQV232bw MV A Nizbaoju888.1cm/sMV E Mean Gr.3mmHg MV WDA13ziI/A Ratio0.7 MVA (PHT)2.42cm2 Pulmonary Valve PV Peak Pbgkcipi63.8cm/sPV Peak Grad.4mmHg Tricuspid Valve TR P. Vpqrsvbw263lb/sRAP MKTXPJTU7swUn TR Peak Gr.75dgKmZANL90azPu Pulmonary Vein S1 Mkssvtox39.2cm/sD2 Oluiuibp54.0cm/s PVa xzxcbkrh719beds LEFT VENTRICLE The left ventricle is normal size. There is normal left ventricular wall thickness. The left ventricu lar systolic function is normal. The Ejection Fraction is 55%. There is normal LV segmental wall anushka on. Transmitral Doppler flow pattern is Grade I-abnormal relaxation pattern. RIGHT VENTRICLE The right ventricle is normal size. There is normal right ventricular wall thickness. The right ventr icular systolic function is normal. ATRIA The left atrium size is normal. The right atrium size is normal. The interatrial septum is intact wit h no evidence for an atrial septal defect or patent foramen ovale as noted on 2-D or Doppler imaging. AORTIC VALVE The aortic valve is thickened but opens well. Doppler and Color Flow revealed trace aortic regurgitat ion. There is no significant aortic valvular stenosis. Calculated aortic valve area is 2.83 cm2 with maximum pressure gradient of 6 mmHg and mean pressure gradient of 4 mmHg. MITRAL VALVE The mitral valve is thickened but opens well. There is no evidence of mitral valve prolapse. There is no mitral valve stenosis. Doppler and Color-flow revealed trace mitral regurgitation. TRICUSPID VALVE The tricuspid valve is normal in structure and function. Doppler and Color Flow revealed trace tricus pid regurgitation with an estimated PAP of 32 mmHg. There is no tricuspid valve stenosis. PULMONIC VALVE The pulmonic valve is not well visualized. Doppler and Color Flow revealed no pulmonic valvular regur gitation. GREAT VESSELS The aortic root is normal in size. The ascending aorta is Mildly dilated. The IVC is normal in size a nd collapses >50% with inspiration. PERICARDIAL EFFUSION There is no evidence of significant pericardial effusion. Critical Notification Critical Value: No <Conclusion> The left ventricular systolic function is normal. The Ejection Fraction is 55%. There is normal LV segmental wall motion. Transmitral Doppler flow pattern is Grade I-abnormal relaxation pattern. Trace mitral regurgitation. Trace tricuspid regurgitation with an estimated PAP of 32 mmHg. There is no evidence of significant pericardial effusion. Signed by : Koby Abbott, Electronically Approved : 08/07/2020 16:15:03
== END | disposition home or self-care (01) ==
LOC: NM 10:02
PROVIDERS: ATTEND Internal Medicine Cardiovascular Disease
DX: I48.92 Unspecified atrial flutter (principal); I10 Essential (primary) hypertension
CPT/HCPCS: 78452; 93017; 93306; A9500; J2785

== ENCOUNTER 2020-12-01 12:21 | Inpatient (IN) | payer MEDICARE ==
[~2020-12-01] VITALS: Ht 162.6 cm; Wt 72.5 kg
[~2020-12-01 12:21] MED LIST changes: -LACT1CAP29 PO; +LACT1CAP37 PO; -REGADENOSON 0.4 MG/5 ML DISP.SYRIN. IV ONE
--- NOTE | 2020-12-01 13:09 | RAD ---
EXAM: Chest, single view. HISTORY: Chest pain. COMPARISON: None. FINDINGS: A frontal view of the chest is obtained. There is no infiltrate, pleural effusion or pneumo thorax. There is suspected left lower lobe atelectasis. There is a stable cardiac silhouette. There i s cervical spinal fusion instrumentation. IMPRESSION: No acute pulmonary finding. Electronically signed by: Eufemia Cohen MD (12/01/2020 12:59 PM) [id number]
--- NOTE | 2020-12-01 13:18 | PHYS DOC ---
Past Medical History Past Medical History: Cancer, Hypertension, Stroke, Other Additional Past Medical Histor: skin cancer, cataracts, menier's, lymphedema to right arm Past Surgical History: Appendectomy, Cholecystectomy, Hysterectomy, Knee Replacement, Other Additional Past Surgical Histo: back surgery Smoking Status: Never Smoker Alcohol Use: None Drug Use: None General Adult EDM: Chief Complaint: CHEST PAIN HPI: HPI: 89-year-old female presenting the [facility] today with chest pain. Chest pain started about 30 minutes ago but did resolve prior to arrival. She has no known cardiac history and denies shortness of breath. The pain is a sharp shooting pain in the left breast which is nonradiating and without alleviating factors. Review of systems: She denies vomiting diaphoresis fevers or chills. She denies history of DVT unilateral leg swelling hemoptysis. All other review of systems negative. ED course: 89-year-old female presenting with chest pain. On arrival EKG obtained and reviewed by myself shows sinus rhythm with a mildly bradycardic rate. ST segments congruent. Not suggestive of acute ischemia. CBC unremarkable. Troponin within normal limits. proBNP elevated at 537. D-dimer within normal limits. We will admit the patient for further evaluation serial troponins and cardiac consultation. Heart Score: HEART Score for Chest Pain: HEART Score for Chest Pain Response (Comments) Value History Moderately Suspicious 1 ECG Nonspecific Repolarizatio 1 Age > 65 2 Risk Factors 1 or 2 Risk Factors 1 Troponin < Normal Limit 0 Total 5 Risk Factors: Risk Factors: DM, Current or recent (<one month) smoker, HTN, HLP, family history of CAD, obesity. Risk Scores: Score 0 - 3: 2.5% MACE over next 6 weeks - Discharge Home Score 4 - 6: 20.3% MACE over next 6 weeks - Admit for Clinical Observation Score 7 - 10: 72.7% MACE over next 6 weeks - Early Invasive Strategies Allergies: Allergies: Allergies Coded Allergies Type Severity Reaction Last Updated Verified Penicillins Allergy Intermediate 01/10/20 Yes etodolac Allergy Intermediate 08/02/15 Yes meperidine Allergy Intermediate 08/02/15 Yes morphine Allergy Intermediate 08/02/15 Yes oxycodone Allergy Intermediate 08/02/15 Yes pentazocine Allergy Intermediate 08/02/15 Yes Physical Exam: PE: Constitutional: Well developed, well nourished, no acute distress, non-toxic appearance. [] HENT: Normocephalic, atraumatic, bilateral external ears normal, oropharynx moist, no oral exudates, nose normal. [] Eyes: PERRLA, EOMI, conjunctiva normal, no discharge. [] Neck: Normal range of motion, no tenderness, supple, no stridor. [] Cardiovascular:Heart rate regular rhythm, no murmur [] Lungs & Thorax: Bilateral breath sounds clear to auscultation [] Abdomen: Bowel sounds normal, soft, no tenderness, no masses, no pulsatile masses. [] Skin: Warm, dry, no erythema, no rash. [] Back: No tenderness, no CVA tenderness. [] Extremities: No tenderness, no cyanosis, no clubbing, ROM intact, no edema. [] Neurologic: Alert and oriented X 3, normal motor function, normal sensory function, no focal deficits noted. [] Psychologic: Affect normal, judgement normal, mood normal. [] Current Patient Data: Vital Signs: Vital Signs Date Time Temp Pulse Resp B/P (MAP) Pulse Ox O2 Delivery O2 Flow Rate FiO2 12/01/20 12:34 98.7 56 18 188/90 (122) 99 Room Air 98.7 EKG: EKG: [] Radiology/Procedures: Radiology/Procedures: [] Course & Med Decision Making: Course & Med Decision Making Pertinent Labs and Imaging studies reviewed. (See chart for details) [] Dragon Disclaimer: Dragon Disclaimer: This electronic medical record was generated, in whole or in part, using a voice recognition dictation system. Departure Departure Impression: Primary Impression: Chest pain Disposition: ADMITTED INPT THIS HOSP Admitting Physician: BREA Condition: STABLE Referrals: Wes JIMENEZ MD (PCP) NADIRA ADAMSON MD Dec 01, 2020 13:18
[2020-12-01 13:20] LABS: BASO # 0.1 x10^3/uL (0.0-0.2); BASO % 2 % (0-3); EOS # 0.2 x10^3/uL (0.0-0.7); EOS % 3 % (0-3); HEMATOCRIT 38.5 % (36.0-47.0); LYMPH # 1.8 x10^3/uL (1.0-4.8); LYMPH % 29 % (24-48); MEAN CORPUSCULAR HEMOGLOBIN 32 pg (25-35); MEAN CORPUSCULAR HGB CONC 34 g/dL (31-37); MEAN CORPUSCULAR VOLUME 95 fL (79-100); MONO # 0.8 x10^3/uL (0.0-1.1); MONO % 13 % (0-9); NEUT # 3.2 x10^3/uL (1.8-7.7); NEUT % 52 % (31-73); PLATELET COUNT 160 x10^3/uL (140-400); RED BLOOD COUNT 4.04 x10^6/uL (3.50-5.40); RED CELL DISTRIBUTION WIDTH 13.8 % (11.5-14.5); WHITE BLOOD COUNT 6.2 x10^3/uL (4.0-11.0)
[2020-12-01 13:25] LABS: PROTHROMBIN TIME PATIENT 13.1 SEC (11.7-14.0)
[2020-12-01 13:34] LABS: ALBUMIN 3.6 g/dL (3.4-5.0); CALCIUM 9.2 mg/dL (8.5-10.1); CREATININE 1.1 mg/dL (0.6-1.0); DIRECT BILIRUBIN 0.1 mg/dL (0.0-0.2); GFR 46.8; POTASSIUM 3.9 mmol/L (3.5-5.1); TOTAL BILIRUBIN 0.7 mg/dL (0.2-1.0); TOTAL PROTEIN 6.8 g/dL (6.4-8.2)
--- NOTE | 2020-12-01 15:29 | EKG ---
[facility] [address] [place] [address] Test Date: 2020-12-01 Test Time: 12:27:14 Pat Name: BECKIE HUFF Department: Room: Gender: F Cuff Cutter: : 1930 Requested By: NADIRA ADAMSON Order Number: [id number] Reading MD: Measurements Intervals [place] Rate: 58 P: 45 MS: 178 QRS: -19 QRSD: 80 T: 42 QT: 404 QTc: 400 Interpretive Statements SINUS RHYTHM LEFTWARD AXIS OTHERWISE NORMAL ECG RI6.01 No previous ECG available for comparison
[2020-12-01] MEDS ORDERED: AMLO-187 PO (16:36)
--- NOTE | 2020-12-01 16:40 | PDOC1 ---
History and Physical Date of Admission Date of Admission DATE: 12/01/20 TIME: 16:29 Identification/Chief Complaint Chief Complaint Chest pain Source Source: Patient History of Present Illness History of Present Illness Ms Rojo is an 89yo F w/ PMHx of skin cancer, HTN, CVA, cataracts, menier's, right arm lymphedema, hypothyroidism who presents from her assisted living facility [facility] complaint of chest pain. Pain lasted 30 minutes was substernal and left side sharp did not radiate. Associated with some difficulty breathing and nausea. It did resolve without any treatment. 6 out of 10. Patient is very anxious. She is somewhat confused in the ED, which is abnormal for her. Of note she was on verapamil with history of paroxsymal afib and was recently transitioned to Amlodipine, she does not recall the reason why. EKG sinus rhythm rate of 58 with slight leftward axis no ST segment changes or T wave changes. Normal intervals. Chest radiograph with no acute abnormality. Labs with WBC 6.2, Hb 13, platelets 160, Na 134, K 3.9, BUN 17, Cr 1.1, glucose 91, BNP 537. Troponin 0 Systolic BP consistently > 200mmHg despite IV hydralazine. Admitted for further care. Past Medical History Cardiovascular: HTN, Hyperlipidemia CENTRAL NERVOUS SYSTEM: CVA, Vertigo GI: GERD Heme/Onc: Cancer Musculoskeletal: Weakness, Other Rheumatologic: No pertinent hx Endocrine: Hypothyroidism Past Surgical History Past Surgical History: Appendectomy, Cholecystectomy, Cataract Removal, Total knee replacement, Hysterectomy, Other Family History Family History: Hypertension Social History ALCOHOL: none Drugs: None Current Medications Current Medications Active Scripts Active Potassium Chloride (Potassium Chloride) 20 Meq Tablet.er 20 Meq PO BIDAFTMEAL 30 Days Aspirin Ec (Aspirin) 81 Mg Tablet.dr 1 Tab PO DAILY 30 Days Verapamil Er (Verapamil Hcl) 240 Mg Cap24h.pel 1 Cap PO DAILY 30 Days Atorvastatin Calcium 20 Mg Tablet 20 Mg PO QHS 30 Days Reported Preparation H (Yady Steen) 1 Each Med..pad 1 Each TP PRN Q6HRS PRN Benadryl (Diphenhydramine Hcl) 25 Mg Capsule 25 Mg PO PRN Q6HRS PRN Acetaminophen 500 Mg Tablet 500 Mg PO PRN Q6HRS PRN Omeprazole 20 Mg Tablet.dr 1 Tab PO DAILY Losartan Potassium 50 Mg Tablet 50 Mg PO DAILY Xalatan (Latanoprost) 2.5 Ml Drops 1 Drop EACHEYE QHS Hydrochlorothiazide Tablet (Hydrochlorothiazide) 12.5 Mg Tablet 12.5 Mg PO DAILY Benadryl (Diphenhydramine Hcl) 25 Mg Capsule 1 Cap PO QHS 30 Days Probiotic (Lactobacillus Combo No.10) 1 Each Capsule 1 Tab PO DAILY 30 Days Acetaminophen 500 Mg Tablet 500 Mg PO BID Garlic 1,000 Mg Capsule 1,000 Mg PO DAILY08 Flax Seed Oil (Flaxseed Oil) 1,000 Mg Capsule 1,000 Mg PO TID Fish Oil [place]-3 Softgel ([place]-3/Dha/Epa/Fish Oil) 1 Each Capsule.dr 1 Each PO BIDAC Centrum Silver Tablet (Multivits-Min/Fa/Lycopene/Lut) 1 Each Tablet 1 Each PO DAILY08 Calcium Citrate - Vit D3 Tab (Calcium Citrate/Vitamin D3) 1 Each Tablet 1 Each PO DAILY08 Latanoprost 2.5 Ml Drops 1 Drop OP HS Levothyroxine Sodium 112 Mcg Tablet 112 Mcg PO DAILYAC Allergies Allergies: Coded Allergies: Penicillins (Verified Allergy, Intermediate, 01/10/20) Has tolerated ceftriaxone and merrem etodolac (Verified Allergy, Intermediate, 08/02/15) meperidine (Verified Allergy, Intermediate, 08/02/15) morphine (Verified Allergy, Intermediate, 08/02/15) oxycodone (Verified Allergy, Intermediate, 08/02/15) pentazocine (Verified Allergy, Intermediate, 08/02/15) ROS General: No: Chills, Night Sweats, Fatigue, Malaise, Appetite, Other PSYCHOLOGICAL ROS: YES: Anxiety; No: Behavioral Disorder, Concentration difficultie, Decreased libido, Depression, Disorientation, Hallucinations, Hostility, Irritablity, Memory difficulties, Mood Swings, Obsessive thoughts, Physical abuse, Sexual abuse, Sleep disturbances, Suicidal ideation, Other Eyes: No Blurry vision, No Decreased vision, No Double vision, No Dry eyes, No Excessive tearing, No Eye Pain, No Itchy Eyes, No Loss of vision, No Photophobia, No Scotomata, No Uses contacts, No Uses glasses, No Other HEENT: YES: Heacaches; No: Visual Changes, Hearing change, Nasal congestion, Nasal discharge, Oral lesions, Sinus pain, Sore Throat, Epistaxis, Sneezing, Snoring, Tinnitus, Vertigo, Vocal changes, Other ALLERGY AND IMMUNOLOGY: No: Hives, Insect Bite Sensitivity, Itchy/Watery Eyes, Nasal Congestion, Post Nasal Drip, Seasonal Allergies, Other Hematological and Lymphatic: No: Bleeding Problems, Blood Clots, Blood Transfusions, Brusing, Night Sweats, Pallor, Swollen Lymph Nodes, Other ENDOCRINE: No: Breast Changes, Galactorrhea, Hair Pattern Changes, Hot Flashes, Malaise/lethargy, Mood Swings, Palpitations, Polydipsia/polyuria, Skin Changes, Temperature Intolerance, Unexpected Weight Changes, Other Breast: No New/Changing Breast Lumps, No Nipple changes, No Nipple discharge, No Other Respiratory: No: Cough, Hemoptysis, Orthopnea, Pleuritic Pain, Shortness of breath, SOB with excertion, Sputum Changes, Stridor, Tachypnea, Wheezing, Other Cardiovascular: yes Chest Pain; No Palpitations, No Orthopnea, No Paroxysmal Noc. Dyspnea, No Edema, No Lt Headedness, No Other Gastrointestinal: No Nausea, No Vomiting, No Abdominal Pain, No Diarrhea, No Constipation, No Melena, No Hematochezia, No Other Genitourinary: No Dysuria, No Frequency, No Incontinence, No Hematuria, No Retention, No Discharge, No Urgency, No Pain, No Flank Pain, No Other, No , No , No , No , No , No , No Musculoskeletal: No Gait Disturbance, No Joint Pain, No Joint Stiffness, No Joint Swelling, No Muscle Pain, No Muscular Weakness, No Pain In:, No Swelling In:, No Other Neurological: No Behavorial Changes, No Bowel/Bladder ControlChng, No Confusion, No Dizziness, No Gait Disturbance, No Headaches, No Impaired Coord/balance, No Memory Loss, No Numbness/Tingling, No Seizures, No Speech Problems, No Tremors, No Visual Changes, No Weakness, No Other Skin: No Dry Skin, No Eczema, No Hair Changes, No Lumps, No Mole Changes, No Mottling, No Nail Changes, No Pruritus, No Rash, No Skin Lesion Changes, No Other, No Acne Physical Exam General: Alert, Cooperative, moderate distress HEENT: Atraumatic, PERRLA, EOMI, Mucous membr. moist/pink Lungs: Clear to auscultation, Normal air movement Heart: S1S2, RRR, no thrills, no rubs, no gallops, no murmurs Abdomen: Normal bowel sounds, Soft, No tenderness, No hepatosplenomegaly, No masses Rectal Exam: not examined Extremities: No clubbing, No cyanosis, No edema, Normal pulses, No tenderness/swelling Skin: No rashes, No breakdown, No significant lesion Neuro: Normal gait, Normal speech, Strength at 5/5 X4 ext, Normal tone, Sensation intact, Cranial nerves 3-12 NL, Reflexes 2+ Psych/Mental Status: Mood NL Vitals Vitals Vital Signs Date Time Temp Pulse Resp B/P (MAP) Pulse Ox O2 Delivery O2 Flow Rate FiO2 12/01/20 15:24 60 18 142/80 (100) 98 Room Air 12/01/20 12:34 98.7 98.7 Labs Labs Laboratory Tests Test 12/01/20 12:45 12/01/20 12:54 12/01/20 13:11 Prothrombin Time 13.1 SEC (11.7-14.0) Prothromb Time International Ratio 1.0 (0.8-1.1) Activated Partial Thromboplast Time 26 SEC (24-38) Sodium Level 134 mmol/L (136-145) Potassium Level 3.9 mmol/L (3.5-5.1) Chloride Level 101 mmol/L (98-107) Carbon Dioxide Level 22 mmol/L (21-32) Anion Gap 11 (6-14) Blood Urea Nitrogen 17 mg/dL (7-20) Creatinine 1.1 mg/dL (0.6-1.0) Estimated GFR (Cockcroft-Gault) 46.8 Glucose Level 91 mg/dL (70-99) Calcium Level 9.2 mg/dL (8.5-10.1) Total Bilirubin 0.7 mg/dL (0.2-1.0) Direct Bilirubin 0.1 mg/dL (0.0-0.2) Aspartate Amino Transf (AST/SGOT) 21 U/L (15-37) Alanine Aminotransferase (ALT/SGPT) 21 U/L (14-59) Alkaline Phosphatase 57 U/L (46-116) Troponin I Quantitative < 0.017 ng/mL (0.000-0.055) TK-Wuq-M-Type Natriuretic Peptide 537 pg/mL (0-449) Total Protein 6.8 g/dL (6.4-8.2) Albumin 3.6 g/dL (3.4-5.0) Lipase 112 U/L (73-393) D-Dimer (Lisa) 0.49 ug/mlFEU (0.00-0.50) White Blood Count 6.2 x10^3/uL (4.0-11.0) Red Blood Count 4.04 x10^6/uL (3.50-5.40) Hemoglobin 13.0 g/dL (12.0-15.5) Hematocrit 38.5 % (36.0-47.0) Mean Corpuscular Volume 95 fL (79-100) Mean Corpuscular Hemoglobin 32 pg (25-35) Mean Corpuscular Hemoglobin Concent 34 g/dL (31-37) Red Cell Distribution Width 13.8 % (11.5-14.5) Platelet Count 160 x10^3/uL (140-400) Neutrophils (%) (Auto) 52 % (31-73) Lymphocytes (%) (Auto) 29 % (24-48) Monocytes (%) (Auto) 13 % (0-9) Eosinophils (%) (Auto) 3 % (0-3) Basophils (%) (Auto) 2 % (0-3) Neutrophils # (Auto) 3.2 x10^3/uL (1.8-7.7) Lymphocytes # (Auto) 1.8 x10^3/uL (1.0-4.8) Monocytes # (Auto) 0.8 x10^3/uL (0.0-1.1) Eosinophils # (Auto) 0.2 x10^3/uL (0.0-0.7) Basophils # (Auto) 0.1 x10^3/uL (0.0-0.2) Laboratory Tests Test 12/01/20 12:45 12/01/20 12:54 12/01/20 13:11 Prothrombin Time 13.1 SEC (11.7-14.0) Prothromb Time International Ratio 1.0 (0.8-1.1) Activated Partial Thromboplast Time 26 SEC (24-38) Sodium Level 134 mmol/L (136-145) Potassium Level 3.9 mmol/L (3.5-5.1) Chloride Level 101 mmol/L (98-107) Carbon Dioxide Level 22 mmol/L (21-32) Anion Gap 11 (6-14) Blood Urea Nitrogen 17 mg/dL (7-20) Creatinine 1.1 mg/dL (0.6-1.0) Estimated GFR (Cockcroft-Gault) 46.8 Glucose Level 91 mg/dL (70-99) Calcium Level 9.2 mg/dL (8.5-10.1) Total Bilirubin 0.7 mg/dL (0.2-1.0) Direct Bilirubin 0.1 mg/dL (0.0-0.2) Aspartate Amino Transf (AST/SGOT) 21 U/L (15-37) Alanine Aminotransferase (ALT/SGPT) 21 U/L (14-59) Alkaline Phosphatase 57 U/L (46-116) Troponin I Quantitative < 0.017 ng/mL (0.000-0.055) OU-Yxs-Q-Type Natriuretic Peptide 537 pg/mL (0-449) Total Protein 6.8 g/dL (6.4-8.2) Albumin 3.6 g/dL (3.4-5.0) Lipase 112 U/L (73-393) D-Dimer (Lisa) 0.49 ug/mlFEU (0.00-0.50) White Blood Count 6.2 x10^3/uL (4.0-11.0) Red Blood Count 4.04 x10^6/uL (3.50-5.40) Hemoglobin 13.0 g/dL (12.0-15.5) Hematocrit 38.5 % (36.0-47.0) Mean Corpuscular Volume 95 fL (79-100) Mean Corpuscular Hemoglobin 32 pg (25-35) Mean Corpuscular Hemoglobin Concent 34 g/dL (31-37) Red Cell Distribution Width 13.8 % (11.5-14.5) Platelet Count 160 x10^3/uL (140-400) Neutrophils (%) (Auto) 52 % (31-73) Lymphocytes (%) (Auto) 29 % (24-48) Monocytes (%) (Auto) 13 % (0-9) Eosinophils (%) (Auto) 3 % (0-3) Basophils (%) (Auto) 2 % (0-3) Neutrophils # (Auto) 3.2 x10^3/uL (1.8-7.7) Lymphocytes # (Auto) 1.8 x10^3/uL (1.0-4.8) Monocytes # (Auto) 0.8 x10^3/uL (0.0-1.1) Eosinophils # (Auto) 0.2 x10^3/uL (0.0-0.7) Basophils # (Auto) 0.1 x10^3/uL (0.0-0.2) Images Images Chest radiograph: A frontal view of the chest is obtained. There is no infiltrate, pleural effusion or pneumothorax. There is suspected left lower lobe atelectasis. There is a stable cardiac silhouette. There is cervical spinal fusion instrumentation. IMPRESSION: No acute pulmonary finding. VTE Prophylaxis Ordered VTE Prophylaxis Devices: Yes VTE Pharmacological Prophylaxi: Yes Assessment/Plan Assessment/Plan A/P: Chest pain - likely GERD vs costochondritis, but with hypertensive crisis and h/o HTN and HLD and age is at risk for ACS. Telemetry and troponins ordered H/o Paroxysmal Aflutter - sinus today Hypothyroidism - TSH appropriate HTN urgency - IV hydralazine and nitropaste, cont home meds HLD - cont statin Metabolic encephalopathy - likely due to elevated BP, has no focal neurologic deficits. FEN - Cardiiac diet PPX - lovenox FULL CODE Dispo - inpatient, Justifications for Admission Other Justification DELVIS PERDOMO MD Dec 01, 2020 16:40
[2020-12-01 17:39] VITALS: BP 200/69
[2020-12-01] MEDS ORDERED: hydrALAZINE 20 MG/ML VIAL. IVP PRN (17:45)
[2020-12-01] MEDS ORDERED: NITROGLYCERIN SUBLINGUAL 0.4 MG BOTTLE OF 25. SL PRN (17:45)
[2020-12-01] MEDS ORDERED: ACETAMINOPHEN 500 MG TABLET PO PRN (17:45)
[2020-12-01] MEDS: LOSARTAN POTASSIUM 50 MG TABLET. PO SCH (17:58)
[2020-12-01] MEDS ORDERED: ASPIRIN 325 MG TABLET PO ONE (18:00)
[2020-12-01 19:00] VITALS: BP 152/72
[2020-12-01] MEDS ORDERED: ACETAMINOPHEN 325 MG TABLET. PO PRN (20:30)
[2020-12-01] MEDS ORDERED: ONDANSETRON PF 4 MG/2 ML VIAL. IV PRN (20:30)
[2020-12-01] MEDS: NITROGLYCERIN OINT 1 GM PACKET. TP SCH ×2 (20:37→23:59)
[2020-12-01] MEDS ORDERED: ATORVASTATIN CALCIUM 20 MG TABLET PO SCH (21:00)
[2020-12-01] MEDS ORDERED: PSYLLIUM HUSK (SUGAR FREE) 1 PKT PACKET PO SCH (21:00)
[2020-12-01] MEDS ORDERED: LATANOPROST 0.005% OPHTH SOLUTION 2.5ML BOTTLE. OU SCH (21:00)
[2020-12-01] MEDS ORDERED: ENOXAPARIN 40 MG/0.4 ML SYRINGE. SQ SCH (21:00)
[2020-12-01] MEDS ORDERED: NON FORMULARY ITEM (Flaxseed Oil (Flax Seed Oil) 1,000 MG) PO SCH (21:00)
[2020-12-01 23:00] VITALS: BP 145/71
[2020-12-02 02:00] LABS: BASO % 0 % (0-3); EOS # 0.3 x10^3/uL (0.0-0.7); EOS % 6 % (0-3); HEMATOCRIT 39.4 % (36.0-47.0); HEMOGLOBIN 13.6 g/dL (12.0-15.5); LYMPH # 1.8 x10^3/uL (1.0-4.8); LYMPH % 34 % (24-48); MEAN CORPUSCULAR HEMOGLOBIN 33 pg (25-35); MEAN CORPUSCULAR HGB CONC 35 g/dL (31-37); MEAN CORPUSCULAR VOLUME 94 fL (79-100); MONO # 0.9 x10^3/uL (0.0-1.1); MONO % 17 % (0-9); NEUT # 2.3 x10^3/uL (1.8-7.7); NEUT % 43 % (31-73); PLATELET COUNT 167 x10^3/uL (140-400); RED BLOOD COUNT 4.18 x10^6/uL (3.50-5.40); RED CELL DISTRIBUTION WIDTH 13.7 % (11.5-14.5); WHITE BLOOD COUNT 5.3 x10^3/uL (4.0-11.0)
[2020-12-02 03:00] VITALS: BP 131/65
[2020-12-02 05:23] LABS: CALCIUM 9.6 mg/dL (8.5-10.1); GFR 52.2; POTASSIUM 3.6 mmol/L (3.5-5.1)
[2020-12-02] MEDS: NITROGLYCERIN OINT 1 GM PACKET. TP SCH ×2 (05:28→15:05)
[2020-12-02 07:00] VITALS: BP 121/65
[2020-12-02] MEDS ORDERED: PANTOPRAZOLE 40 MG TABLET.DR. PO SCH (07:30)
[2020-12-02] MEDS ORDERED: LEVOTHYROXINE 112 MCG TABLET PO SCH (07:30)
[2020-12-02] MEDS ORDERED: NON FORMULARY ITEM (Garlic 1,000 MG) PO SCH (08:00)
[2020-12-02] MEDS ORDERED: ASPIRIN 325 MG TABLET PO SCH (08:00)
--- NOTE | 2020-12-02 08:29 | PDOC ---
[employer] PROGRESS NOTE Date of Service DOS: DATE: 12/02/20 TIME: 08:28 Chief Complaint Chief Complaint A/P: Chest pain - likely HTN urgency vs GERD vs costochondritis, but with hypertensive crisis and h/o HTN and HLD and age is at risk for ACS. Telemetry and troponins ordered H/o Paroxysmal Aflutter - sinus today Hypothyroidism - TSH appropriate HTN urgency - IV hydralazine and nitropaste, cont home meds HLD - cont statin Metabolic encephalopathy - likely due to elevated BP, has no focal neurologic deficits. Likely has underlying MCI or dementia per her daughter Hyponatremia - noted on admit, advised to stop HCTZ FEN - Cardiiac diet PPX - lovenox FULL CODE Dispo - inpatient History of Present Illness History of Present Illness Ms Rojo is an 89yo F w/ PMHx of skin cancer, HTN, CVA, cataracts, menier's, right arm lymphedema, hypothyroidism who presents from her assisted living facility [facility] complaint of chest pain. Pain lasted 30 minutes was substernal and left side sharp did not radiate. Associated with some difficulty breathing and nausea. It did resolve without any treatment. 6 out of 10. Patient is very anxious. She is somewhat confused in the ED, which is abnormal for her. Of note she was on verapamil with history of paroxsymal afib and was recently tr ansitioned to Amlodipine, she does not recall the reason why. EKG sinus rhythm rate of 58 with slight leftward axis no ST segment changes or T wave changes. Normal intervals. Chest radiograph with no acute abnormality. Labs with WBC 6.2, Hb 13, platelets 160, Na 134, K 3.9, BUN 17, Cr 1.1, glucose 91, BNP 537. Troponin 0 Systolic BP consistently > 200mmHg despite IV hydralazine. Admitted for further care. Troponins trended negative. No telemetry events. Afebrile no chest pain or shortness of breath. CR down to 1 and NA to 136. Counseled on medication compliance at home. She and her daughter note she is very forgetful. Vitals/I&O Vitals/I&O: Vital Signs Date Time Temp Pulse Resp B/P (MAP) Pulse Ox O2 Delivery O2 Flow Rate FiO2 12/02/20 05:28 67 131/65 12/02/20 03:00 97.7 18 95 Room Air 97.7 I & O 12/01/20 12/01/20 12/02/20 15:00 23:00 07:00 Intake Total 0 ml Balance 0 ml Physical Exam General: Alert, Cooperative, moderate distress Lungs: Clear Abdomen: Normal bowel sounds, Soft, No tenderness, No hepatosplenomegaly, No masses Extremities: No clubbing, No cyanosis, No edema, Normal pulses, No tenderness/swelling Skin: No rashes, No breakdown, No significant lesion Labs Labs: Laboratory Tests Test 12/01/20 12:45 12/01/20 12:54 12/01/20 13:11 12/01/20 19:30 Prothrombin Time 13.1 SEC (11.7-14.0) Prothromb Time International Ratio 1.0 (0.8-1.1) Activated Partial Thromboplast Time 26 SEC (24-38) Sodium Level 134 mmol/L (136-145) Potassium Level 3.9 mmol/L (3.5-5.1) Chloride Level 101 mmol/L (98-107) Carbon Dioxide Level 22 mmol/L (21-32) Anion Gap 11 (6-14) Blood Urea Nitrogen 17 mg/dL (7-20) Creatinine 1.1 mg/dL (0.6-1.0) Estimated GFR (Cockcroft-Gault) 46.8 Glucose Level 91 mg/dL (70-99) Calcium Level 9.2 mg/dL (8.5-10.1) Total Bilirubin 0.7 mg/dL (0.2-1.0) Direct Bilirubin 0.1 mg/dL (0.0-0.2) Aspartate Amino Transf (AST/SGOT) 21 U/L (15-37) Alanine Aminotransferase (ALT/SGPT) 21 U/L (14-59) Alkaline Phosphatase 57 U/L (46-116) Troponin I Quantitative < 0.017 ng/mL (0.000-0.055) < 0.017 ng/mL (0.000-0.055) FJ-Oph-Z-Type Natriuretic Peptide 537 pg/mL (0-449) Total Protein 6.8 g/dL (6.4-8.2) Albumin 3.6 g/dL (3.4-5.0) Lipase 112 U/L (73-393) Vitamin B12 Level 262 pg/mL (247-911) Thyroid Stimulating Hormone (TSH) 1.126 uIU/mL (0.358-3.74) D-Dimer (Lisa) 0.49 ug/mlFEU (0.00-0.50) White Blood Count 6.2 x10^3/uL (4.0-11.0) Red Blood Count 4.04 x10^6/uL (3.50-5.40) Hemoglobin 13.0 g/dL (12.0-15.5) Hematocrit 38.5 % (36.0-47.0) Mean Corpuscular Volume 95 fL (79-100) Mean Corpuscular Hemoglobin 32 pg (25-35) Mean Corpuscular Hemoglobin Concent 34 g/dL (31-37) Red Cell Distribution Width 13.8 % (11.5-14.5) Platelet Count 160 x10^3/uL (140-400) Neutrophils (%) (Auto) 52 % (31-73) Lymphocytes (%) (Auto) 29 % (24-48) Monocytes (%) (Auto) 13 % (0-9) Eosinophils (%) (Auto) 3 % (0-3) Basophils (%) (Auto) 2 % (0-3) Neutrophils # (Auto) 3.2 x10^3/uL (1.8-7.7) Lymphocytes # (Auto) 1.8 x10^3/uL (1.0-4.8) Monocytes # (Auto) 0.8 x10^3/uL (0.0-1.1) Eosinophils # (Auto) 0.2 x10^3/uL (0.0-0.7) Basophils # (Auto) 0.1 x10^3/uL (0.0-0.2) Test 12/02/20 01:15 12/02/20 01:30 White Blood Count 5.3 x10^3/uL (4.0-11.0) Red Blood Count 4.18 x10^6/uL (3.50-5.40) Hemoglobin 13.6 g/dL (12.0-15.5) Hematocrit 39.4 % (36.0-47.0) Mean Corpuscular Volume 94 fL (79-100) Mean Corpuscular Hemoglobin 33 pg (25-35) Mean Corpuscular Hemoglobin Concent 35 g/dL (31-37) Red Cell Distribution Width 13.7 % (11.5-14.5) Platelet Count 167 x10^3/uL (140-400) Neutrophils (%) (Auto) 43 % (31-73) Lymphocytes (%) (Auto) 34 % (24-48) Monocytes (%) (Auto) 17 % (0-9) Eosinophils (%) (Auto) 6 % (0-3) Basophils (%) (Auto) 0 % (0-3) Neutrophils # (Auto) 2.3 x10^3/uL (1.8-7.7) Lymphocytes # (Auto) 1.8 x10^3/uL (1.0-4.8) Monocytes # (Auto) 0.9 x10^3/uL (0.0-1.1) Eosinophils # (Auto) 0.3 x10^3/uL (0.0-0.7) Basophils # (Auto) 0.0 x10^3/uL (0.0-0.2) Sodium Level 136 mmol/L (136-145) Potassium Level 3.6 mmol/L (3.5-5.1) Chloride Level 102 mmol/L (98-107) Carbon Dioxide Level 22 mmol/L (21-32) Anion Gap 12 (6-14) Blood Urea Nitrogen 15 mg/dL (7-20) Creatinine 1.0 mg/dL (0.6-1.0) Estimated GFR (Cockcroft-Gault) 52.2 Glucose Level 96 mg/dL (70-99) Calcium Level 9.6 mg/dL (8.5-10.1) Troponin I Quantitative < 0.017 ng/mL (0.000-0.055) Assessment and Plan Assessmemt and Plan Problems Medical Problems: (1) Chest pain Status: Acute Comment Review of Relevant I have reviewed the following items amarjit (where applicable) has been applied. Medications: Current Medications Medications (Trade) Dose Ordered Sig/Jason Route PRN Reason Start Time Stop Time Status Last Admin Dose Admin Psyllium Hydrophilic Mucilloid (Metamucil Fiber Packet) 1 pkt QHS PO 12/01/20 21:00 12/01/20 20:28 Olanzapine (ZyPREXA ZYDIS) 5 mg 1X ONCE PO 12/01/20 16:45 12/01/20 16:46 DC 12/01/20 17:58 Hydralazine HCl (Apresoline Inj) 10 mg PRN Q4HRS PRN IVP ELEVATED BP, SEE COMMENTS 12/01/20 17:45 12/01/20 17:59 Amlodipine Besylate (Norvasc) 10 mg DAILY PO 12/01/20 18:00 12/01/20 17:58 Atorvastatin Calcium (Lipitor) 20 mg QHS PO 12/01/20 21:00 12/01/20 20:28 Latanoprost (Xalatan) 1 drop HS OU 12/01/20 21:00 12/01/20 20:28 Losartan Potassium (Cozaar) 50 mg DAILY PO 12/01/20 18:00 12/01/20 17:58 Aspirin (Vee Aspirin) 325 mg 1X ONCE PO 12/01/20 18:00 12/01/20 18:01 DC 12/01/20 17:58 Nitroglycerin (Nitro-Bid Oint) 1 inch Q6HRS TP 12/01/20 20:30 12/02/20 05:28 Acetaminophen (Tylenol) 650 mg PRN Q4HRS PRN PO TEMP OVER 100.4F OR MILD PAIN 12/01/20 20:30 12/01/20 23:35 Enoxaparin Sodium (Lovenox 40mg Syringe) 40 mg Q24H SQ 12/01/20 21:00 12/01/20 21:38 Justifications for Admission Other Justification DELVIS PERDOMO MD Dec 02, 2020 08:29
[2020-12-02] MEDS ORDERED: CYANOCOBALAMIN (VITAMIN B-12) 1,000 MCG/ML VIAL. IM ONE (08:30)
[2020-12-02] MEDS ORDERED: MULTIVITAMIN with MINERAL TABLET. PO SCH (09:00)
[2020-12-02] MEDS ORDERED: LACTOBACILLUS RHAMNOSUS GG 1 CAPSULE. PO SCH (09:00)
[2020-12-02] MEDS: CALCIUM CARB/VIT D3 500/200 TABLET. PO SCH ×2 (09:00→09:41)
[2020-12-02] MEDS: OMEGA-3 FATTY ACIDS/FISH OIL 1,000 MG CAPSULE. PO SCH ×2 (09:41→17:08)
[2020-12-02] MEDS: LOSARTAN POTASSIUM 50 MG TABLET. PO SCH (09:47)
[2020-12-02] MEDS ORDERED: CYAN-25 PO (10:38)
--- NOTE | 2020-12-02 10:40 | SNU/HH DC ---
DISCHARGE WITH HOME HEALTH DISCHARGE INFORMATION: Discharge Date: Dec 02, 2020 Final Diagnosis: Problems Medical Problems: (1) Chest pain Status: Acute Condition on Discharge: Stable CODE STATUS: Code Status: Full HOME HEALTH: Face to Face: I certify this patient is under my care and that I, or a nurse practitioner or physician's reading assistant working with me, had a face to face encounter that meets the physician face to face encounter requirements with this patient on 12/02/2020. Medical Complications: HTN Longterm For: Assess/Skilled Observatio RN For Eval/Treatment: Yes Physical Therapy For: Evalulation/Treatment Occupational Therapy For: Evaluation/Treatment Speech Language Pathology For: Evaluation/Treatment Pt Meets Homebound Status: Fatigue w/ amb. POST DISCHARGE ORDERS: Activity Instructions for Disc: No restrictions, Resume previous activity, Ac tivity as tolerated Weight Bearing Status after Di: As tolerated DIET AFTER DISCHARGE: Cardiac Wound/Incision Care: No wound care needed CHECKS AFTER DISCHARGE: Checks after discharge: Check blood press - daily TREATMENT/EQUIPMENT ORDERS: Adaptive Equipment Issued: None CERTIFICATION STATEMENT: Certification Statement: Certification Statement: Based on the above finding, I certify that this patient is confined to the home and needs intermittent fpc care, physical therapy and/or speech therapy, or continues to need occupational therapy.~ This patient is under my care, and I have initiated the establishment of the plan of care.~ This patient will be followed by myself or a community physician who will periodically review the plan of care. Home Meds Active Scripts Psyllium Husk (KONSYL) 6 Gm Packet, 6 GM PO QPM for Constipation for 90 Days, #90 PKT 3 Refills Prov:DELVIS PERDOMO MD 12/02/20 Olanzapine (OLANZAPINE ODT) 5 Mg Tab.rapdis, 5 MG PO PRN BID PRN for ANXIETY / AGITATION for 30 Days, #60 TAB 5 Refills Prov:DELVIS PERDOMO MD 12/02/20 Cyanocobalamin (Vitamin B-12) (VITAMIN B-12) 1,000 Mcg Tablet, 1000 MCG PO DAILY for B12 deficiency for 90 Days, #90 TAB 3 Refills Prov:DELVIS PERDOMO MD 12/02/20 Aspirin (ASPIRIN EC) 81 Mg Tablet.dr, 1 TAB PO DAILY for afltter for 30 Days, #30 TAB 3 Refills Prov:VILMA ROSE RUBBLE PLACER 07/21/20 Atorvastatin Calcium (ATORVASTATIN CALCIUM) 20 Mg Tablet, 20 MG PO QHS for cholesterol for 30 Days, #30 TAB Prov:MARIKA ZAMORA MD 07/21/20 Reported Medications Yady Steen (PREPARATION H) 1 Each Med..pad, 1 EACH TP PRN Q6HRS PRN for PAIN, PAD 07/21/20 Acetaminophen (ACETAMINOPHEN) 500 Mg Tablet, 500 MG PO PRN Q6HRS PRN for PAIN, TAB 07/21/20 Omeprazole (OMEPRAZOLE) 20 Mg Tablet.dr, 1 TAB PO DAILY for REFLUX, #90 TAB 3 Refills 07/21/20 Losartan Potassium (LOSARTAN POTASSIUM) 50 Mg Tablet, 50 MG PO DAILY for HYPERTENSION, TAB 07/21/20 Latanoprost (XALATAN) 2.5 Ml Drops, 1 DROP EACHEYE QHS for GLACOMA, #7.5 ML 3 Refills 07/21/20 Lactobacillus Combo No.10 (PROBIOTIC) 1 Each Capsule, 1 TAB PO DAILY for SUPPLEMEMT for 30 Days, #30 TAB 0 Refills 07/21/20 Garlic (GARLIC) 1,000 Mg Capsule, 1000 MG PO DAILY08 05/10/14 Flaxseed Oil (FLAX SEED OIL) 1,000 Mg Capsule, 1000 MG PO TID 05/10/14 [place]-3/Dha/Epa/Fish Oil (FISH OIL OMEGA-3 SOFTGEL) 1 Each Capsule.dr, 1 EACH PO BIDAC 05/10/14 Multivits-Min/Fa/Lycopene/Lut (CENTRUM SILVER TABLET) 1 Each Tablet, 1 EACH PO DAILY08 05/10/14 Calcium Citrate/Vitamin D3 (CALCIUM CITRATE - VIT D3 TAB) 1 Each Tablet, 1 EACH PO DAILY08 05/10/14 Latanoprost (LATANOPROST) 2.5 Ml Drops, 1 DROP OP HS, EACH 05/10/14 Levothyroxine Sodium (LEVOTHYROXINE SODIUM) 112 Mcg Tablet, 112 MCG PO DAILYAC for THYROID SUPPLEMENT, #30 TAB 0 Refills 05/10/14 Discontinued Reported Medications Amlodipine Besylate (AMLODIPINE BESYLATE) 10 Mg Tablet, 10 MG PO DAILY, TAB 12/01/20 Diphenhydramine Hcl (BENADRYL) 25 Mg Capsule, 25 MG PO PRN Q6HRS PRN for ITCHING, CAP 07/21/20 Hydrochlorothiazide (HYDROCHLOROTHIAZIDE TABLET) 12.5 Mg Tablet, 12.5 MG PO DAILY for DIURETIC, TAB 0 Refills 07/21/20 Diphenhydramine Hcl (BENADRYL) 25 Mg Capsule, 1 CAP PO QHS for SLEEP for 30 Days, #30 CAP 0 Refills 07/21/20 Acetaminophen (ACETAMINOPHEN) 500 Mg Tablet, 500 MG PO BID for ARTHRITIS, TAB 07/21/20 Discontinued Scripts Potassium Chloride (POTASSIUM CHLORIDE ) 20 Meq Tablet.er, 20 MEQ PO BIDAFTMEAL for SUPPLEMENT for 30 Days, #60 TAB.SR 3 Refills Prov:VILMA ROSE APRN 07/21/20 Verapamil Hcl (VERAPAMIL ER) 240 Mg Cap24h.pel, 1 CAP PO DAILY for htn for 30 Days, #30 CAP 3 Refills Prov:VILMA ROSE APRN 07/21/20 DELVIS PERDOMO MD Dec 02, 2020 10:40
--- NOTE | 2020-12-02 10:50 | PDOC3 ---
Discharge Summary Visit Information Date of Admission: Dec 01, 2020 Date of Discharge: Dec 02, 2020 Admitting Diagnosis: Chest pain, HTN urgency Final Diagnosis Problems Medical Problems: (1) Chest pain Status: Acute Brief Hospital Course Allergies Allergies Coded Allergies Type Severity Reaction Last Updated Verified Penicillins Allergy Intermediate 01/10/20 Yes etodolac Allergy Intermediate 08/02/15 Yes meperidine Allergy Intermediate 08/02/15 Yes morphine Allergy Intermediate 08/02/15 Yes oxycodone Allergy Intermediate 08/02/15 Yes pentazocine Allergy Intermediate 08/02/15 Yes Vital Signs Vital Signs Date Time Temp Pulse Resp B/P (MAP) Pulse Ox O2 Delivery O2 Flow Rate FiO2 12/02/20 09:47 78 121/68 12/02/20 08:05 Room Air 12/02/20 07:00 97.6 16 96 97.6 Lab Results Laboratory Tests Test 12/01/20 12:45 12/01/20 12:54 12/01/20 13:11 12/01/20 19:30 Prothrombin Time 13.1 SEC (11.7-14.0) Prothromb Time International Ratio 1.0 (0.8-1.1) Activated Partial Thromboplast Time 26 SEC (24-38) Sodium Level 134 mmol/L (136-145) Potassium Level 3.9 mmol/L (3.5-5.1) Chloride Level 101 mmol/L (98-107) Carbon Dioxide Level 22 mmol/L (21-32) Anion Gap 11 (6-14) Blood Urea Nitrogen 17 mg/dL (7-20) Creatinine 1.1 mg/dL (0.6-1.0) Estimated GFR (Cockcroft-Gault) 46.8 Glucose Level 91 mg/dL (70-99) Calcium Level 9.2 mg/dL (8.5-10.1) Total Bilirubin 0.7 mg/dL (0.2-1.0) Direct Bilirubin 0.1 mg/dL (0.0-0.2) Aspartate Amino Transf (AST/SGOT) 21 U/L (15-37) Alanine Aminotransferase (ALT/SGPT) 21 U/L (14-59) Alkaline Phosphatase 57 U/L (46-116) Troponin I Quantitative < 0.017 ng/mL (0.000-0.055) < 0.017 ng/mL (0.000-0.055) EH-Kmq-Y-Type Natriuretic Peptide 537 pg/mL (0-449) Total Protein 6.8 g/dL (6.4-8.2) Albumin 3.6 g/dL (3.4-5.0) Lipase 112 U/L (73-393) Vitamin B12 Level 262 pg/mL (247-911) Thyroid Stimulating Hormone (TSH) 1.126 uIU/mL (0.358-3.74) D-Dimer (Lisa) 0.49 ug/mlFEU (0.00-0.50) White Blood Count 6.2 x10^3/uL (4.0-11.0) Red Blood Count 4.04 x10^6/uL (3.50-5.40) Hemoglobin 13.0 g/dL (12.0-15.5) Hematocrit 38.5 % (36.0-47.0) Mean Corpuscular Volume 95 fL (79-100) Mean Corpuscular Hemoglobin 32 pg (25-35) Mean Corpuscular Hemoglobin Concent 34 g/dL (31-37) Red Cell Distribution Width 13.8 % (11.5-14.5) Platelet Count 160 x10^3/uL (140-400) Neutrophils (%) (Auto) 52 % (31-73) Lymphocytes (%) (Auto) 29 % (24-48) Monocytes (%) (Auto) 13 % (0-9) Eosinophils (%) (Auto) 3 % (0-3) Basophils (%) (Auto) 2 % (0-3) Neutrophils # (Auto) 3.2 x10^3/uL (1.8-7.7) Lymphocytes # (Auto) 1.8 x10^3/uL (1.0-4.8) Monocytes # (Auto) 0.8 x10^3/uL (0.0-1.1) Eosinophils # (Auto) 0.2 x10^3/uL (0.0-0.7) Basophils # (Auto) 0.1 x10^3/uL (0.0-0.2) Test 12/02/20 01:15 12/02/20 01:30 White Blood Count 5.3 x10^3/uL (4.0-11.0) Red Blood Count 4.18 x10^6/uL (3.50-5.40) Hemoglobin 13.6 g/dL (12.0-15.5) Hematocrit 39.4 % (36.0-47.0) Mean Corpuscular Volume 94 fL (79-100) Mean Corpuscular Hemoglobin 33 pg (25-35) Mean Corpuscular Hemoglobin Concent 35 g/dL (31-37) Red Cell Distribution Width 13.7 % (11.5-14.5) Platelet Count 167 x10^3/uL (140-400) Neutrophils (%) (Auto) 43 % (31-73) Lymphocytes (%) (Auto) 34 % (24-48) Monocytes (%) (Auto) 17 % (0-9) Eosinophils (%) (Auto) 6 % (0-3) Basophils (%) (Auto) 0 % (0-3) Neutrophils # (Auto) 2.3 x10^3/uL (1.8-7.7) Lymphocytes # (Auto) 1.8 x10^3/uL (1.0-4.8) Monocytes # (Auto) 0.9 x10^3/uL (0.0-1.1) Eosinophils # (Auto) 0.3 x10^3/uL (0.0-0.7) Basophils # (Auto) 0.0 x10^3/uL (0.0-0.2) Sodium Level 136 mmol/L (136-145) Potassium Level 3.6 mmol/L (3.5-5.1) Chloride Level 102 mmol/L (98-107) Carbon Dioxide Level 22 mmol/L (21-32) Anion Gap 12 (6-14) Blood Urea Nitrogen 15 mg/dL (7-20) Creatinine 1.0 mg/dL (0.6-1.0) Estimated GFR (Cockcroft-Gault) 52.2 Glucose Level 96 mg/dL (70-99) Calcium Level 9.6 mg/dL (8.5-10.1) Troponin I Quantitative < 0.017 ng/mL (0.000-0.055) Laboratory Tests Test 12/01/20 12:45 12/01/20 12:54 12/01/20 13:11 12/01/20 19:30 Prothrombin Time 13.1 SEC (11.7-14.0) Prothromb Time International Ratio 1.0 (0.8-1.1) Activated Partial Thromboplast Time 26 SEC (24-38) Sodium Level 134 mmol/L (136-145) Potassium Level 3.9 mmol/L (3.5-5.1) Chloride Level 101 mmol/L (98-107) Carbon Dioxide Level 22 mmol/L (21-32) Anion Gap 11 (6-14) Blood Urea Nitrogen 17 mg/dL (7-20) Creatinine 1.1 mg/dL (0.6-1.0) Estimated GFR (Cockcroft-Gault) 46.8 Glucose Level 91 mg/dL (70-99) Calcium Level 9.2 mg/dL (8.5-10.1) Total Bilirubin 0.7 mg/dL (0.2-1.0) Direct Bilirubin 0.1 mg/dL (0.0-0.2) Aspartate Amino Transf (AST/SGOT) 21 U/L (15-37) Alanine Aminotransferase (ALT/SGPT) 21 U/L (14-59) Alkaline Phosphatase 57 U/L (46-116) Troponin I Quantitative < 0.017 ng/mL (0.000-0.055) < 0.017 ng/mL (0.000-0.055) IF-Gcq-V-Type Natriuretic Peptide 537 pg/mL (0-449) Total Protein 6.8 g/dL (6.4-8.2) Albumin 3.6 g/dL (3.4-5.0) Lipase 112 U/L (73-393) Vitamin B12 Level 262 pg/mL (247-911) Thyroid Stimulating Hormone (TSH) 1.126 uIU/mL (0.358-3.74) D-Dimer (Lisa) 0.49 ug/mlFEU (0.00-0.50) White Blood Count 6.2 x10^3/uL (4.0-11.0) Red Blood Count 4.04 x10^6/uL (3.50-5.40) Hemoglobin 13.0 g/dL (12.0-15.5) Hematocrit 38.5 % (36.0-47.0) Mean Corpuscular Volume 95 fL (79-100) Mean Corpuscular Hemoglobin 32 pg (25-35) Mean Corpuscular Hemoglobin Concent 34 g/dL (31-37) Red Cell Distribution Width 13.8 % (11.5-14.5) Platelet Count 160 x10^3/uL (140-400) Neutrophils (%) (Auto) 52 % (31-73) Lymphocytes (%) (Auto) 29 % (24-48) Monocytes (%) (Auto) 13 % (0-9) Eosinophils (%) (Auto) 3 % (0-3) Basophils (%) (Auto) 2 % (0-3) Neutrophils # (Auto) 3.2 x10^3/uL (1.8-7.7) Lymphocytes # (Auto) 1.8 x10^3/uL (1.0-4.8) Monocytes # (Auto) 0.8 x10^3/uL (0.0-1.1) Eosinophils # (Auto) 0.2 x10^3/uL (0.0-0.7) Basophils # (Auto) 0.1 x10^3/uL (0.0-0.2) Test 12/02/20 01:15 12/02/20 01:30 White Blood Count 5.3 x10^3/uL (4.0-11.0) Red Blood Count 4.18 x10^6/uL (3.50-5.40) Hemoglobin 13.6 g/dL (12.0-15.5) Hematocrit 39.4 % (36.0-47.0) Mean Corpuscular Volume 94 fL (79-100) Mean Corpuscular Hemoglobin 33 pg (25-35) Mean Corpuscular Hemoglobin Concent 35 g/dL (31-37) Red Cell Distribution Width 13.7 % (11.5-14.5) Platelet Count 167 x10^3/uL (140-400) Neutrophils (%) (Auto) 43 % (31-73) Lymphocytes (%) (Auto) 34 % (24-48) Monocytes (%) (Auto) 17 % (0-9) Eosinophils (%) (Auto) 6 % (0-3) Basophils (%) (Auto) 0 % (0-3) Neutrophils # (Auto) 2.3 x10^3/uL (1.8-7.7) Lymphocytes # (Auto) 1.8 x10^3/uL (1.0-4.8) Monocytes # (Auto) 0.9 x10^3/uL (0.0-1.1) Eosinophils # (Auto) 0.3 x10^3/uL (0.0-0.7) Basophils # (Auto) 0.0 x10^3/uL (0.0-0.2) Sodium Level 136 mmol/L (136-145) Potassium Level 3.6 mmol/L (3.5-5.1) Chloride Level 102 mmol/L (98-107) Carbon Dioxide Level 22 mmol/L (21-32) Anion Gap 12 (6-14) Blood Urea Nitrogen 15 mg/dL (7-20) Creatinine 1.0 mg/dL (0.6-1.0) Estimated GFR (Cockcroft-Gault) 52.2 Glucose Level 96 mg/dL (70-99) Calcium Level 9.6 mg/dL (8.5-10.1) Troponin I Quantitative < 0.017 ng/mL (0.000-0.055) Brief Hospital Course Ms Rojo is an 89yo F w/ PMHx of skin cancer, HTN, CVA, cataracts, menier's, right arm lymphedema, hypothyroidism who presents from her assisted living facility [facility] complaint of chest pain. Pain lasted 30 minutes was substernal and left side sharp did not radiate. Associated with some difficulty breathing and nausea. It did resolve without any treatment. 6 out of 10. Patient is very anxious. She is somewhat confused in the ED, which is abnormal for her. Of note she was on verapamil with history of paroxsymal afib and was recently transitioned to Amlodipine, she does not recall the reason why. EKG sinus rhythm rate of 58 with slight leftward axis no ST segment changes or T wave changes. Normal intervals. Chest radiograph with no acute abnormality. Labs with WBC 6.2, Hb 13, platelets 160, Na 134, K 3.9, BUN 17, Cr 1.1, glucose 91, BNP 537. Troponin 0 Systolic BP consistently > 200mmHg despite IV hydralazine. Admitted for further care. Troponins trended negative. No telemetry events. Afebrile no chest pain or shortness of breath. CR down to 1 and NA to 136. Counseled on medication compliance at home. She and her daughter note she is very forgetful. She actually refuses nitroglycerin and aspirin frequently and did so in route. She has been counseled on the importance of these medications as she does have them at home. Problem list: Chest pain - likely HTN urgency vs GERD vs costochondritis, but with hypertensive crisis and h/o HTN and HLD and age is at risk for ACS. Telemetry and troponins ordered H/o Paroxysmal Aflutter - sinus today Hypothyroidism - TSH appropriate HTN urgency - IV hydralazine and nitropaste, cont home meds HLD - cont statin Metabolic encephalopathy - likely due to elevated BP, has no focal neurologic deficits. Likely has underlying MCI or dementia per her daughter Hyponatremia - noted on admit, advised to stop HCTZ Greater than 30 minutes spent on d/c home to [facility] with home health Discharge Information Condition at Discharge: Improved Follow Up: Weeks (1) Disposition/Orders: D/C to Home w/ HH Scheduled Amlodipine Besylate (Amlodipine Besylate) 10 Mg Tablet, 10 MG PO DAILY, (Reported) Entered as Reported by: EMMANUEL HUITRON on 12/01/20 1636 Last Action: Continued on 12/01/201743 by DELVIS PERDOMO MD Aspirin (Aspirin Ec) 81 Mg Tablet.dr, 1 TAB PO DAILY for afltter for 30 Days, #30 Ref 3 Prescribed by: VILMA ROSE on 07/21/20 1438 Atorvastatin Calcium (Atorvastatin Calcium) 20 Mg Tablet, 20 MG PO QHS for cholesterol for 30 Days, #30 Prescribed by: MARIKA ZAMORA MD on 07/21/20 1324 Last Action: Continued on 12/01/201743 by DELVIS PERDOMO MD Calcium Citrate/Vitamin D3 (Calcium Citrate - Vit D3 Tab) 1 Each Tablet, 1 EACH PO DAILY08, (Reported) Entered as Reported by: GERSON WILKINS on 05/10/14 1605 Last Action: Converted on 12/01/201743 by DELVIS PERDOMO MD Cyanocobalamin (Vitamin B-12) (Vitamin B-12) 1,000 Mcg Tablet, 1,000 MCG PO DAILY for B12 deficiency for 90 Days, #90 Ref 3 Prescribed by: DELVIS PERDOMO MD on 12/02/20 1038 Flaxseed Oil (Flax Seed Oil) 1,000 Mg Capsule, 1,000 MG PO TID, (Reported) Entered as Reported by: GERSON WILKINS on 05/10/14 1605 Last Action: Converted on 12/01/201743 by DELVIS PERDOMO MD Garlic (Garlic) 1,000 Mg Capsule, 1,000 MG PO DAILY08, (Reported) Entered as Reported by: GERSON WILKINS on 05/10/14 1605 Last Action: Converted on 12/01/201743 by DELVIS PERDOMO MD Lactobacillus Combo No.10 (Probiotic) 1 Each Capsule, 1 TAB PO DAILY for SUPPLEMEMT for 30 Days, #30 Ref 0 (Reported) Entered as Reported by: Marni Vergara on 07/21/20315 Last Action: Converted on 12/01/201743 by DELVIS PERDOMO MD Latanoprost (Latanoprost) 2.5 Ml Drops, 1 DROP OP HS, (Reported) Entered as Reported by: GERSON WILKINS on 05/10/149 Last Action: Continued on 12/01/201743 by DELVIS PERDOMO MD Latanoprost (Xalatan) 2.5 Ml Drops, 1 DROP EACHEYE QHS for GLACOMA, #7.5 Ref 3 (Reported) Entered as Reported by: Marni Vergara on 07/21/20315 Levothyroxine Sodium (Levothyroxine Sodium) 112 Mcg Tablet, 112 MCG PO DAILYAC for THYROID SUPPLEMENT, #30 Ref 0 (Reported) Entered as Reported by: GERSON WILKINS on 05/10/149 Last Action: Continued on 12/01/201743 by DELVIS PERDOMO MD Losartan Potassium (Losartan Potassium) 50 Mg Tablet, 50 MG PO DAILY for HYPERTENSION, (Reported) Entered as Reported by: Marni Vergara on 07/21/20315 Last Action: Continued on 12/01/201743 by DELVIS PERDOMO MD Multivits-Min/Fa/Lycopene/Lut (Centrum Silver Tablet) 1 Each Tablet, 1 EACH PO DAILY08, (Reported) Entered as Reported by: GERSON WILKINS on 05/10/14 160 Last Action: Converted on 12/01/201743 by DELVIS PERDOMO MD Ernul-3/Dha/Epa/Fish Oil (Fish Oil Ernul-3 Softgel) 1 Each Capsule.dr, 1 EACH PO BIDAC, (Reported) Entered as Reported by: GERSON WILKINS on 05/10/14 160 Last Action: Converted on 12/01/201743 by DELVIS PERDOMO MD Omeprazole (Omeprazole) 20 Mg Tablet.dr, 1 TAB PO DAILY for REFLUX, #90 Ref 3 (Reported) Entered as Reported by: Marni Vergara on 07/21/20315 Last Action: Converted on 12/01/201743 by DELVIS PERDOMO MD Scheduled PRN Acetaminophen (Acetaminophen) 500 Mg Tablet, 500 MG PO PRN Q6HRS PRN for PAIN, (Reported) Entered as Reported by: Marni Vergara on 07/21/20315 Last Action: Continued on 12/01/201743 by DELVIS PERDOMO MD Yady Steen (Preparation H) 1 Each Med..pad, 1 EACH TP PRN Q6HRS PRN for PAIN, (Reported) Entered as Reported by: Marni Vergara on 07/21/20315 Discontinued Medications Acetaminophen (Acetaminophen) 500 Mg Tablet, 500 MG PO BID for ARTHRITIS, (Reported) Entered as Reported by: Marni Vergara on 07/21/20315 Diphenhydramine Hcl (Benadryl) 25 Mg Capsule, 1 CAP PO QHS for SLEEP for 30 Days, #30 Ref 0 (Reported) Entered as Reported by: Marni Vergara on 07/21/20315 Diphenhydramine Hcl (Benadryl) 25 Mg Capsule, 25 MG PO PRN Q6HRS PRN for ITCHING, (Reported) Entered as Reported by: Marni Vergara on 07/21/20315 Hydrochlorothiazide (Hydrochlorothiazide Tablet) 12.5 Mg Tablet, 12.5 MG PO DAILY for DIURETIC, Ref 0 (Reported) Entered as Reported by: Marni Vergara on 07/21/20315 Potassium Chloride (Potassium Chloride ) 20 Meq Tablet.er, 20 MEQ PO BIDAFTMEAL for SUPPLEMENT for 30 Days, #60 Ref 3 Prescribed by: VILMA ROSE on 07/21/20 1440 Verapamil Hcl (Verapamil Er) 240 Mg Cap24h.pel, 1 CAP PO DAILY for htn for 30 Days, #30 Ref 3 Prescribed by: VILMA ROSE on 07/21/20 1436 Justicifation of Admission Dx: Justifications for Admission: Justification of Admission Dx: Yes DELVIS PERDOMO MD Dec 02, 2020 10:50
[2020-12-02 11:00] VITALS: BP 119/49
[2020-12-02] MEDS ORDERED: OLAN5TAB7 PO (13:28)
[2020-12-02] MEDS ORDERED: PSYL1PAC3 PO (13:28)
[2020-12-02 15:00] VITALS: BP 121/70
[2020-12-02 15:05] VITALS: BP 121/70
--- NOTE | 2020-12-02 18:30 | NUR ---
Discharge Note: Patient was discharged back to her Assisted [facility]. Patient and daughter aware of discharge plans and agreeable. Patients IV was discontinued without any complications per [employer]. Patient was given discharge summary/instructions, follow-ups, and educational material. Patients prescriptions were sent to patients preferred pharmacy. Report was called to YESSI Maxwell at facility. Patient was transported to facility via wheelchair van with all personal belongings.
[2020-12-03] MEDS ORDERED: CYANOCOBALAMIN (VITAMIN B-12) 1,000 MCG TABLET. PO SCH (09:00)
== END 2020-12-02 18:30 | disposition home health service (06) | DRG 391 ==
LOC: ER 12:21 → 5 NORTH 16:27
PROVIDERS: ADMIT Internal Medicine; ATTEND Internal Medicine
DX: K21.9 Gastro-esophageal reflux disease without esophagitis (principal); G93.41 Metabolic encephalopathy; I16.9 Hypertensive crisis, unspecified; E87.1 Hypo-osmolality and hyponatremia; M94.0 Chondrocostal junction syndrome [Tietze]; I16.0 Hypertensive urgency; E03.9 Hypothyroidism, unspecified; E78.5 Hyperlipidemia, unspecified; F03.90 Unspecified dementia, unspecified severity, without behavioral disturbance, psychotic disturbance, mood disturbance, and anxiety; I10 Essential (primary) hypertension; I48.0 Paroxysmal atrial fibrillation; N64.4 Mastodynia; Z82.49 Family history of ischemic heart disease and other diseases of the circulatory system; Z85.828 Personal history of other malignant neoplasm of skin; Z86.73 Personal history of transient ischemic attack (TIA), and cerebral infarction without residual deficits; Z90.49 Acquired absence of other specified parts of digestive tract; Z90.710 Acquired absence of both cervix and uterus; Z96.659 Presence of unspecified artificial knee joint; Z88.0 Allergy status to penicillin; Z88.8 Allergy status to other drugs, medicaments and biological substances
CPT/HCPCS: 36415; 71045; 80048; 80076; 82607; 83690; 83880; 84443; 84484; 85025; 85379; 85610; 85730; 93005; 99285; J0360; J1650; J3420; G0378

== ENCOUNTER → 2021-05-29 | Outpatient (CLI) | payer MEDICARE ==
[~2021-05-29] MED LIST changes: +AMLO-187 PO; +CYAN-25 PO; +OLAN5TAB7 PO; +PSYL1PAC3 PO
--- NOTE | 2021-05-29 18:31 | CARD ---
MR#: [id number] Date of Study: 05/29/2021 Ordering Physician: KOBY RICHARD, Referring Physician: Devon PAUL: Blaine Allison [facility] APPROVED REPORT EXAM: Two-dimensional and M-mode echocardiogram with Doppler and color Doppler. Other Information Quality : FairHR: 53bpm Rhythm : NSR INDICATION Atrial Fibrillation 2D DIMENSIONS Left Atrium(2D)4.1 (1.6-4.0cm)IVSd0.9 (0.7-1.1cm) Aortic Root(2D)3.1 (2.0-3.7cm)LVDd4.5 (3.9-5.9cm) LVOT Diameter1.9 (1.8-2.4cm)PWd0.9 (0.7-1.1cm) LVDs2.4 (2.5-4.0cm)FS (%) 46.2 % SV71.2 mlLVEF(%)77.7 (>50%) Aortic Valve AoV Peak Henry.140.5cm/sAoV VTI33.6cm AO Peak GR.7.9mmHgLVOT Peak Henry.102.9cm/s AO Mean GR.4mmHgAVA (VMAX)2.03cm2 Mitral Valve MV E Abarzbul59.9cm/sMV E Peak Gr.10mmHg MV DECEL [id number] A Swaxcroz629.3cm/s MV E Mean Gr.3mmHgE/A Ratio0.7 Pulmonary Valve PV Peak Fuajrxfo34.3cm/s Tricuspid Valve TR P. Cturygur634db/sTR Peak Gr.26mmHg Pulmonary Vein S1 Luhafckr78.4cm/sD2 Rodeaced45.7cm/s LEFT VENTRICLE The left ventricle is normal size. There is normal left ventricular wall thickness. The left ventricu lar systolic function is normal and the ejection fraction is within normal range. EF 55% There is nor mal LV segmental wall motion. Tissue Doppler imaging reveals mild left ventricular diastolic dysfunct ion. RIGHT VENTRICLE The right ventricle is normal size. There is normal right ventricular wall thickness. The right ventr icular systolic function is normal. ATRIA The left atrium is mildly dilated. The right atrium size is normal. The interatrial septum is intact with no evidence for an atrial septal defect or patent foramen ovale as noted on 2-D or Doppler imagi ng. AORTIC VALVE The aortic valve is calcified but opens well. Doppler and Color Flow revealed trace aortic regurgitat ion. There is no significant aortic valvular stenosis. There is no aortic valvular vegetation. MITRAL VALVE The mitral valve is normal in structure and function. There is no evidence of mitral valve prolapse. There is no mitral valve stenosis. Doppler and Color-flow revealed trace to mild mitral regurgitation . TRICUSPID VALVE The tricuspid valve is normal in structure and function. Doppler and Color Flow revealed trace to mil d tricuspid regurgitation. There is no tricuspid valve prolapse or vegetation. There is no tricuspid valve stenosis. PULMONIC VALVE Doppler and Color Flow revealed no pulmonic valvular regurgitation. There is no pulmonic valvular mohamud nosis. GREAT VESSELS The aortic root is normal in size. Ascending aorta is mildly dilated at 3.9 cm. The IVC is normal in size and collapses >50% with inspiration. PERICARDIAL EFFUSION There is no pleural effusion. There is no evidence of significant pericardial effusion. Critical Notification Critical Value: No <Conclusion> The left ventricular systolic function is normal and the ejection fraction is within normal range. EF 55% There is normal LV segmental wall motion. Ascending aorta is mildly dilated at 3.9 cm. Signed by : Shiva Saxena, Electronically Approved : 05/29/2021 18:31:16
== END ==
LOC: ECHO 10:18
PROVIDERS: ATTEND Internal Medicine Cardiovascular Disease
DX: I08.3 Combined rheumatic disorders of mitral, aortic and tricuspid valves (principal); I48.92 Unspecified atrial flutter
CPT/HCPCS: 93306